=== PATIENT | male | born 1955 | race African-American/Black ===

== ENCOUNTER 2019-11-19 17:02 | Inpatient (IN) | payer OTHER ==
[~2019-11-19] VITALS: Ht 177.8 cm; Wt 62.0 kg
[2019-11-19 17:09] VITALS: BP 146/75
--- NOTE | 2019-11-19 17:21 | Emergency Room Report ---
History of Present Illness General Chief Complaint: Abnormal Labs Source: Patient Present Illness HPI 64-year-old male with history of diabetes and recent CVA approximately 1 month ago requiring ICU admission at an outside hospital according to paramedics, here with hypoglycemia. Patient's family who lives at home with him has been checking his blood glucose over the past 2 days and says that it is persistently in the 30s despite forcing the patient to eat and given the patient p.o. glucose supplementation. When paramedics arrived the patient had a blood glucose of 37. He received a bolus of D10 and repeat blood glucose here in the emergency department is 137 on arrival. Patient is alert and oriented to name and place only at his baseline, which she is at right now. He denies any pain. No fevers, chills, chest pain, palpitations, shortness of breath, back pain, abdominal pain, nausea, vomiting, diarrhea, dysuria. Paramedics did not have a medication list for the patient. When they asked the family at the home whether the patient takes any medication such as insulin, family members said that they were unaware. 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 Nursing Documentation-[facility] Past Medical History: No History, Except For Hx Hypertension: Yes Hx Diabetes: Yes Hx Neurological Problems: Yes - Stroke september/2019 Review of Systems All Other Systems: negative except mentioned in HPI Physical Exam Vital Signs Date Time Temp Pulse Resp B/P (MAP) Pulse Ox O2 Delivery O2 Flow Rate FiO2 11/19/19 16:59 98.1 74 18 126/61 (82) 99 Room Air Sp02 EP Interpretation: reviewed, normal General Appearance: no apparent distress, alert, non-toxic Head: normocephalic, atraumatic Eyes: bilateral eye normal inspection, bilateral eye PERRL ENT: hearing grossly normal, normal pharynx, no angioedema, normal voice Neck: full range of motion, supple/symm/no masses Respiratory: chest non-tender, lungs clear, normal breath sounds, speaking full sentences Cardiovascular #1: regular rate, rhythm, no edema Cardiovascular #2: 2+ carotid (R), 2+ carotid (L), 2+ radial (R), 2+ radial (L) , 2+ dorsalis pedis (R), 2+ dorsalis pedis (L) Gastrointestinal: normal bowel sounds, non tender, soft, non-distended, no guarding, no rebound Rectal: deferred Genitourinary: normal inspection, no CVA tenderness Musculoskeletal: back normal, normal range of motion, calf tenderness, gait/ station normal, non-tender Neurologic: alert, motor strength/tone normal, sensory intact, responsive, speech normal, other - Oriented to name and place. Did not know year. At baseline Psychiatric: judgement/insight normal, memory normal, mood/affect normal, no suicidal/homicidal ideation Lymphatic: no adenopathy Medical Decision Making Diagnostic Impression: Primary Impression: NSTEMI (non-ST elevated myocardial infarction) Additional Impressions: UTI (urinary tract infection) COVID-19 Pneumonia Hypoglycemia ER Course Total critical care time: Approximately 45 minutes Due to a high probability of clinically significant, life threatening deterioration, the patient required the highest level of preparedness to intervene emergently and I personally spent this critical care time directly and personally managing the patient. This critical care time included obtaining a history, examining the patient, pulse oximetry, ordering and reviewing studies , ordering treatments, evaluating response to treatment and updating management plan as needed, frequent reassessment and discussion with other providers as well as arranging for ultimate disposition. This critical to care time was performed to assess and manage the high probability of life-threatening deterioration that could result in multiorgan failure. This critical care time is separate from the separately billable procedures and treating other patients. EKG: Normal sinus rhythm. Rate 60 bpm. No ectopy. T wave inversions V4 through V6. No large ST elevation. Leftward axis Chest x-ray: Bilateral patchy ill-defined peripheral appearing opacities may be inflammatory infectious, clinically correlate 64-year-old male here with hyperglycemia. Patient had a blood glucose of 37 per the paramedics when they arrived at the patient's home. He received a bolus of D10 water en route to the emergency department and his repeat glucose was 137. However after about an hour his repeat glucose again was 87. He was placed on a D10 W infusion at 50 cc/h. Patient is EKG revealed concerning T wave inversions in V4 through V6. He also had an increased troponin of 0.2. However there were no EKG changes that would indicate a STEMI or STEMI equivalent. Lactate elevated 2.4. Patient was given 1 L of IV normal saline and repeat lactate is currently pending. Urinalysis showed evidence of infection. Chest x-ray also showed patchy ill-defined opacities diffusely. Concern for possible COVID-19 versus healthcare acquired pneumonia given that the patient was recently in a another hospital about 1 month ago. He was given vancomycin and cefepime for coverage for healthcare acquired pneumonia as well as urinary tract infections. Despite being on D10W the patient's repeat glucose dropped to 47. He received a bolus of D50 and the D10W infusion was increased to 100 cc/h. Repeat glucose approximately 30 minutes later was 130. Patient remained hemodynamically stable throughout this entire course. Admitted to telemetry. Last Vital Signs Date Time Temp Pulse Resp B/P (MAP) Pulse Ox O2 Delivery O2 Flow Rate FiO2 11/19/19 17:09 98.1 75 20 146/75 100 Room Air Jad Westfall M.D. Nov 19, 2019 17:21
[2019-11-19 17:23] LABS: BASOPHILS % (AUTO) 0.7 % (0.0-2.0); HEMATOCRIT 29.2 % (42.0-52.0); HEMOGLOBIN 9.7 G/DL (14.2-18.0); MEAN CORPUSCULAR VOLUME 87 FL (80-99); MONOCYTES % (AUTO) 5.3 % (1.0-10.0); PLATELET COUNT 221 K/UL (150-450); RED BLOOD COUNT 3.34 M/UL (4.70-6.10); WHITE BLOOD COUNT 10.3 K/UL (4.8-10.8)
[2019-11-19 17:33] LABS: ANION GAP 10 mmol/L (5-15); BLOOD UREA NITROGEN 14 mg/dL (7-18); CALCIUM 8.6 MG/DL (8.5-10.1); CARBON DIOXIDE 25 MMOL/L (21-32); CHLORIDE 96 MMOL/L (98-107); CREATININE 1.1 MG/DL (0.55-1.30); POTASSIUM 4.2 MMOL/L (3.5-5.1); SODIUM 131 MMOL/L (136-145)
[2019-11-19 17:45] LABS: APPEARANCE,URINE SLIGHTLY CLOUDY; BILIRUBIN, URINE NEGATIVE (NEGATIVE); GLUCOSE, URINE (UA) 2+ (NEGATIVE); KETONES,URINE NEGATIVE (NEGATIVE); LEUKOCYTE ESTERASE ,URINE 1+ (NEGATIVE); NITRITE,URINE NEGATIVE (NEGATIVE); PH,URINE 6 (4.5-8.0); PROTEIN,URINE 2+ (NEGATIVE); UROBILINOGEN,URINE 8 MG/DL (0.0-1.0)
[2019-11-19] MEDS ORDERED: Aspirin Baby 81mg ORAL ONE (17:45)
[2019-11-19 17:46] LABS: COLOR,URINE YELLOW
--- NOTE | 2019-11-19 17:46 | Diagnostic Imaging Report ---
History: COUGH Exam: XR CXR 1 VIEW Comparison: None available FINDINGS: Bilateral patchy ill-defined peripheral appearing opacities. No evidence of pleural effusion. The cardiac and mediastinal contours appear within limits. Several BBs. Visualized osseous structures appear within limits. IMPRESSION: Bilateral patchy ill-defined peripheral appearing opacities may be inflammatory or infectious, clinically correlate.
[2019-11-19 17:47] LABS: ALANINE AMINOTRANSFERASE 35 U/L (12-78); ALBUMIN/GLOBULIN RATIO 0.8 (1.0-2.7); ALKALINE PHOSPHATASE 56 U/L (46-116); ASPARTATE AMINO TRANSFERASE 52 U/L (15-37); BILIRUBIN,TOTAL 1.2 MG/DL (0.2-1.0); CKMB 1.7 NG/ML (0.0-3.6); CREATINE KINASE 434 U/L (26-308); INR 1.2 (0.9-1.1)
[2019-11-19 17:50] LABS: BILIRUBIN,DIRECT 0.3 MG/DL (0.0-0.3)
[2019-11-19] MEDS ORDERED: CLOPIDOGREL75 MG ORAL (17:58)
[2019-11-19] MEDS ORDERED: METOPROLOL TART25 MG ORAL (17:58)
[2019-11-19] MEDS ORDERED: GLIPIZIDE5 MG ORAL (17:58)
[2019-11-19] MEDS ORDERED: ELIQUIS5 MG PO (17:58)
[2019-11-19] MEDS ORDERED: Dextrose 10% 1,000 ML IV ONE (18:05)
[2019-11-19] MEDS ORDERED: Dextrose 10% 1,000 ML IV SCH (18:15)
[2019-11-19] MEDS ORDERED: Vancomycin 1 GM in NS 275 ML IVPB ONE (18:30)
[2019-11-19] MEDS ORDERED: Cefepime HCl 1 GM in D5W 55 ML IVPB ONE (18:30)
[2019-11-19 19:00] VITALS: BP 135/70
[2019-11-19] MEDS ORDERED: ATORVASTATIN CA40 MG ORAL (19:31)
[2019-11-19] MEDS ORDERED: LISINOPRIL2.5 MG ORAL (19:31)
[2019-11-19] MEDS ORDERED: dexAMETHasone 10mg/ml Inj IV ONE (22:30)
[2019-11-20] VITALS: BP 144/75
[2019-11-20] MEDS: Dextrose 10% 1,000 ML IV SCH ×2 (03:26→13:00)
[2019-11-20 04:00] VITALS: BP 147/67
[2019-11-20 05:13] LABS: HEMATOCRIT 29.2 % (42.0-52.0); HEMOGLOBIN 9.8 G/DL (14.2-18.0); MEAN CORPUSCULAR VOLUME 86 FL (80-99); PLATELET COUNT 242 K/UL (150-450); WHITE BLOOD COUNT 9.1 K/UL (4.8-10.8)
[2019-11-20 05:34] LABS: ALANINE AMINOTRANSFERASE 41 U/L (12-78); ALBUMIN 2.9 G/DL (3.4-5.0); ALBUMIN/GLOBULIN RATIO 0.7 (1.0-2.7); ALKALINE PHOSPHATASE 52 U/L (46-116); ANION GAP 11 mmol/L (5-15); ASPARTATE AMINO TRANSFERASE 52 U/L (15-37); BILIRUBIN,TOTAL 1.2 MG/DL (0.2-1.0); BLOOD UREA NITROGEN 12 mg/dL (7-18); CARBON DIOXIDE 21 MMOL/L (21-32); CHLORIDE 101 MMOL/L (98-107); CREATININE 0.9 MG/DL (0.55-1.30); POTASSIUM 4.7 MMOL/L (3.5-5.1); SODIUM 133 MMOL/L (136-145)
[2019-11-20 05:43] LABS: BILIRUBIN,DIRECT 0.3 MG/DL (0.0-0.3)
[2019-11-20 08:00] VITALS: BP 153/70
[2019-11-20] MEDS: dexAMETHasone 10mg/ml Inj IV SCH (09:00)
[2019-11-20] MEDS: cefTRIAXone 1 GM in D5W 55 ML IVPB SCH (09:00)
[2019-11-20] MEDS: Aspirin Baby 81mg ORAL SCH (09:00)
[2019-11-20 10:11] LABS: FERRITIN 1249 NG/ML (8-388)
[2019-11-20 10:58] LABS: % IRON SATURATION 20 % (15-50); IRON 24 ug/dL (50-175); TOTAL IRON BINDING CAPACITY 120 ug/dL (250-450)
--- NOTE | 2019-11-20 11:00 | Consultation ---
DATE OF CONSULTATION: 11/20/2019 ENDOCRINOLOGY CONSULTATION CONSULTING PHYSICIAN: Vinicius Gunter MD. REFERRING PHYSICIAN: Sharon Dobson MD. REASON FOR CONSULTATION: Diabetes management. HISTORY OF PRESENT ILLNESS: The patient is a 64-year-old male with past medical history of diabetes, on glipizide monotherapy, as well as a recent CVA approximately about a month ago requiring ICU admission at outside hospital, presented with severe hypoglycemia. In the past few days, his glucose has been running in the 30s. Despite the patient being forced to eat by paramedics, had a glucose of 37 and was given dextrose rescue dose and brought to the emergency department. After admission, the patient continued to drop his glucose, therefore started on D10 drip and Endocrinology was consulted. His COVID test came back positive, they informed me last night. I added dexamethasone 6 mg daily in order to help with both COVID and hypoglycemia, and glucose orders were provided. PAST MEDICAL HISTORY: 1. Diabetes. 2. CVA. 3. Hypertension. PAST SURGICAL HISTORY: None documented. REVIEW OF SYSTEMS: As per HPI. FAMILY HISTORY: Noncontributory. SOCIAL HISTORY: Lives at home. No smoking, alcohol, or drug use. MEDICATIONS: Reviewed and reconciled. LABORATORY VALUES: WBC 9, hemoglobin 9, hematocrit 29, platelets of 242. Sodium 133, potassium 4.7, chloride 101, bicarb 21, BUN 12, creatinine 0.9. Glucose of 213. Lactic acid was 2.4 on presentation. PHYSICAL EXAMINATION: VITAL SIGNS: Blood pressure is 147/67, heart rate 63, respiratory rate 18, temperature 98.5. Full exam was deferred due to COVID infection. DIAGNOSES: 1. Hypoglycemia secondary to both glipizide and COVID. 2. COVID infection. 3. Diabetes, out of control. PLAN: 1. Continue D10 drip. 2. Continue dexamethasone. 3. Continue glucose monitoring. 4. No need for insulin for now. 5. I will follow the patient closely during hospital stay. Thank you Dr. Dobson for the courtesy of this consultation. Vinicius Gunter M.D. DR: VIVEK/CHUCK JOB#: [id number] CC:
[2019-11-20 11:47] VITALS: BP 127/66
--- NOTE | 2019-11-20 13:30 | Consultation ---
DATE OF CONSULTATION: 11/20/2019 PULMONARY CONSULTATION CONSULTING PHYSICIAN: Jordan Groves MD. HISTORY OF PRESENT ILLNESS: This is a 64-year-old male with a history of diabetes mellitus and previous CVA, who came to the hospital with hypoglycemia. The patient noted that the patient has been hypoglycemic for the last several days. The patient was hypoglycemic and received D10. At this time, the patient is unable to answer any further questions with respect to his presentation. Overnight, the patient has been tested and found to be positive for COVID-19. I have reviewed his imaging studies and note that an x-ray chest was obtained, which has shown bilateral patchy infiltrates suspicious for COVID-19 pneumonia. The patient is currently not hypoxic and is 96% on room air. PAST MEDICAL HISTORY: Notable for hypertension, diabetes mellitus, and recent CVA. PAST SURGICAL HISTORY: None reported. SOCIAL HISTORY: Lives at home with family. REVIEW OF SYSTEMS: Denies any headaches, hematemesis, melena, or hematochezia. PHYSICAL EXAMINATION: GENERAL: Reveals a 64-year-old male. HEENT: Unremarkable. LUNGS: Clear breath sounds. ABDOMEN: Soft. EXTREMITIES: There is no edema. NEUROLOGIC: Nonfocal. LABORATORY DATA: Lab testing discussed above notable for hemoglobin 9.8, otherwise normal CBC. BMP notable for glucose 161 today. Yesterday was glucose of 58. He has elevated ferritin as well as AST. Coags show D-dimer of 0.7. Urinalysis shows few pus cells. X-ray discussed above. IMPRESSION: 1. COVID19 pneumonia. 2. Hypoglycemia. 3. Diabetes mellitus. 4. Hypertension. 5. CVA. DISCUSSION: Admit to the hospital. Hold off on remdesivir given lack of hypoxemia. We will initiate Lovenox therapy and Decadron. We will follow carefully. Thank you for consultation. Jordan Groves M.D. DR: DON JOB#: [id number] CC:
--- NOTE | 2019-11-20 14:12 | Consultation ---
Consult Note Consult Note Asked to evaluate the patient at the request of Dr. Morse for abnormal electrolytes Patient had no previous admissions here at [facility] 64-year-old male with history of diabetes and recent CVA approximately 1 month ago requiring ICU admission at an outside hospital according to paramedics, here with hypoglycemia. Patient's family who lives at home with him has been checking his blood glucose over the past 2 days and says that it is persistently in the 30s despite forcing the patient to eat and given the patient p.o. glucose supplementation. When paramedics arrived the patient had a blood glucose of 37. He received a bolus of D10 and repeat blood glucose here in the emergency department is 137 on arrival. Patient is alert and oriented to name and place only at his baseline, which she is at right now. He denies any pain. No fevers, chills, chest pain, palpitations, shortness of breath, back pain, abdominal pain, nausea, vomiting, diarrhea, dysuria. Paramedics did not have a medication list for the patient. When they asked the family at the home whether the patient takes any medication such as insulin, family members said that they were unaware. No Known Allergies (Unverified , 11/19/19) COVID-19 Screening Contact w/high risk pt: No Experienced COVID-19 symptoms?: No COVID-19 Testing performed LEGAL COMPLIANCE OFFICER: No Past Medical History: No History, Except For Hx Hypertension: Yes Hx Diabetes: Yes Hx Neurological Problems: Yes - Stroke september/2019 PHYSICAL EXAMINATION: VITAL SIGNS: Temperature 97.9, pulse 55, blood pressure 129/66. GENERAL APPEARANCE: Seems to be in no acute distress. HEAD AND NECK: [place] conjunctivae. HEART: Normal rate. LUNGS: Clear. He is in room air oxygen. ABDOMEN: Soft, nontender. EXTREMITIES: Has no edema. LABORATORY AND DIAGNOSTIC DATA: WBC 9.1, hemoglobin 9.8, hematocrit 29.2, platelets is 242. Sodium 131, potassium 4.2, chloride 96, bicarbonate 25, BUN 14, creatinine 1.1, glucose 115. The latest glucose was 166 yesterday. Albumin is 2.9. Chest x-ray showed bilateral patchy peripheral appearing opacity, may be inflammatory or infectious. UA showed rbc's of 5 to 10, wbc's of 2 to 4. . Assessment/Plan Impression: Hyponatremia likely depletional Diabetes mellitus, with periodic hypoglycemia Non-STEMI COVID-19, pneumonia UTI Hypertension Previous CVA Suggestions: Keep the blood pressure and blood sugar in check Slow hydrate Monitor electrolytes Per consultants Chest x-ray: IMPRESSION: Bilateral patchy ill-defined peripheral appearing opacities may be inflammatory or infectious, clinically correlate. Ilya López MD Nov 20, 2019 14:12
--- NOTE | 2019-11-20 14:48 | Cardiac Electrophysiology PN ---
Subjective Subjective [id number] Objective Last 24 Hour Vital Signs Date Time Temp Pulse Resp B/P (MAP) Pulse Ox O2 Delivery O2 Flow Rate FiO2 11/20/19 11:47 98.2 86 20 127/66 (86) 94 11/20/19 09:00 Room Air 11/20/19 08:00 99.3 90 20 153/70 (97) 96 11/20/19 04:00 98.5 78 18 147/67 (93) 97 11/20/19 04:00 63 11/20/19 00:00 98.0 88 20 144/75 (98) 97 11/20/19 00:00 72 11/19/19 21:00 Room Air 11/19/19 20:31 Room Air 11/19/19 20:00 74 11/19/19 20:00 98.5 82 18 138/8 100 Room Air 11/19/19 19:00 98.5 86 16 135/70 99 Room Air 11/19/19 17:09 98.1 75 20 146/75 100 Room Air 11/19/19 16:59 98.1 74 18 126/61 (82) 99 Room Air Intake and Output 11/19/19 11/20/19 19:00 07:00 Intake Total 1055 ml Balance 1055 ml IV Total 1055 ml # Voids 1 Laboratory Tests Test 11/19/19 17:00 11/19/19 17:59 11/19/19 19:10 11/20/19 01:30 White Blood Count 10.3 K/UL (4.8-10.8) Red Blood Count 3.34 M/UL (4.70-6.10) L Hemoglobin 9.7 G/DL (14.2-18.0) L Hematocrit 29.2 % (42.0-52.0) L Mean Corpuscular Volume 87 FL (80-99) Mean Corpuscular Hemoglobin 29.0 PG (27.0-31.0) Mean Corpuscular Hemoglobin Concent 33.2 G/DL (32.0-36.0) Red Cell Distribution Width 12.0 % (11.6-14.8) Platelet Count 221 K/UL (150-450) Mean Platelet Volume 8.0 FL (6.5-10.1) Neutrophils (%) (Auto) 84.0 % (45.0-75.0) H Lymphocytes (%) (Auto) 10.0 % (20.0-45.0) L Monocytes (%) (Auto) 5.3 % (1.0-10.0) Eosinophils (%) (Auto) 0.0 % (0.0-3.0) Basophils (%) (Auto) 0.7 % (0.0-2.0) Prothrombin Time 12.6 SEC (9.30-11.50) H Prothromb Time International Ratio 1.2 (0.9-1.1) H Activated Partial Thromboplast Time 35 SEC (23-33) H D-Dimer 0.72 mg/L FEU (0.00-0.49) H Urine Color Yellow Urine Appearance Slightly cloudy Urine pH 6 (4.5-8.0) Urine Specific [place] 1.010 (1.005-1.035) Urine Protein 2+ (NEGATIVE) H Urine Glucose (UA) 2+ (NEGATIVE) H Urine Ketones Negative (NEGATIVE) Urine Blood 2+ (NEGATIVE) H Urine Nitrite Negative (NEGATIVE) Urine Bilirubin Negative (NEGATIVE) Urine Urobilinogen 8 MG/DL (0.0-1.0) H Urine Leukocyte Esterase 1+ (NEGATIVE) H Urine RBC 5-10 /HPF (0 - 0) H Urine WBC 2-4 /HPF (0 - 0) Urine Squamous Epithelial Cells Occasional /LPF Urine Amorphous Sediment Few /LPF (NONE) H Urine Bacteria Few /HPF (NONE) Sodium Level 131 MMOL/L (136-145) L Potassium Level 4.2 MMOL/L (3.5-5.1) Chloride Level 96 MMOL/L (98-107) L Carbon Dioxide Level 25 MMOL/L (21-32) Anion Gap 10 mmol/L (5-15) Blood Urea Nitrogen 14 mg/dL (7-18) Creatinine 1.1 MG/DL (0.55-1.30) Estimat Glomerular Filtration Rate > 60 mL/min (>60) Glucose Level 115 MG/DL (74-106) H Lactic Acid Level 2.40 mmol/L (0.4-2.0) H 1.30 mmol/L (0.66-2.22) Calcium Level 8.6 MG/DL (8.5-10.1) Total Bilirubin 1.2 MG/DL (0.2-1.0) H Direct Bilirubin 0.3 MG/DL (0.0-0.3) Aspartate Amino Transf (AST/SGOT) 52 U/L (15-37) H Alanine Aminotransferase (ALT/SGPT) 35 U/L (12-78) Alkaline Phosphatase 56 U/L (46-116) Total Creatine Kinase 434 U/L (26-308) H Creatine Kinase MB 1.7 NG/ML (0.0-3.6) Creatine Kinase MB Relative Index 0.3 Troponin I 0.203 ng/mL (0.000-0.056) Total Protein 7.0 G/DL (6.4-8.2) Albumin 3.0 G/DL (3.4-5.0) L Globulin 4.0 g/dL Albumin/Globulin Ratio 0.8 (1.0-2.7) L POC Whole Blood Glucose Pending 58 MG/DL (74-106) L Test 11/20/19 03:50 11/20/19 04:00 11/20/19 06:10 11/20/19 09:10 POC Whole Blood Glucose 170 MG/DL (74-106) H 213 MG/DL (74-106) H White Blood Count 9.1 K/UL (4.8-10.8) Red Blood Count 3.40 M/UL (4.70-6.10) L Hemoglobin 9.8 G/DL (14.2-18.0) L Hematocrit 29.2 % (42.0-52.0) L Mean Corpuscular Volume 86 FL (80-99) Mean Corpuscular Hemoglobin 28.8 PG (27.0-31.0) Mean Corpuscular Hemoglobin Concent 33.6 G/DL (32.0-36.0) Red Cell Distribution Width 12.0 % (11.6-14.8) Platelet Count 242 K/UL (150-450) Mean Platelet Volume 7.2 FL (6.5-10.1) Neutrophils (%) (Auto) % (45.0-75.0) Lymphocytes (%) (Auto) % (20.0-45.0) Monocytes (%) (Auto) % (1.0-10.0) Eosinophils (%) (Auto) % (0.0-3.0) Basophils (%) (Auto) % (0.0-2.0) Differential Total Cells Counted 100 Neutrophils % (Manual) 82 % (45-75) H Lymphocytes % (Manual) 12 % (20-45) L Monocytes % (Manual) 6 % (1-10) Eosinophils % (Manual) 0 % (0-3) Basophils % (Manual) 0 % (0-2) Band Neutrophils 0 % (0-8) Platelet Estimate Adequate Platelet Morphology Normal Hypochromasia 1+ Sodium Level 133 MMOL/L (136-145) L Potassium Level 4.7 MMOL/L (3.5-5.1) Chloride Level 101 MMOL/L (98-107) Carbon Dioxide Level 21 MMOL/L (21-32) Anion Gap 11 mmol/L (5-15) Blood Urea Nitrogen 12 mg/dL (7-18) Creatinine 0.9 MG/DL (0.55-1.30) Estimat Glomerular Filtration Rate > 60 mL/min (>60) Glucose Level 161 MG/DL (74-106) H Calcium Level 9.0 MG/DL (8.5-10.1) Total Bilirubin 1.2 MG/DL (0.2-1.0) H Direct Bilirubin 0.3 MG/DL (0.0-0.3) Aspartate Amino Transf (AST/SGOT) 52 U/L (15-37) H Alanine Aminotransferase (ALT/SGPT) 41 U/L (12-78) Alkaline Phosphatase 52 U/L (46-116) Total Protein 7.1 G/DL (6.4-8.2) Albumin 2.9 G/DL (3.4-5.0) L Globulin 4.2 g/dL Albumin/Globulin Ratio 0.7 (1.0-2.7) L Iron Level 24 ug/dL (50-175) L Total Iron Binding Capacity 120 ug/dL (250-450) L Percent Iron Saturation 20 % (15-50) Unsaturated Iron Binding 96 ug/dL (112-346) L Ferritin 1249 NG/ML (8-388) H Vitamin B12 Level 1201 PG/ML (193-986) H Folate 13.0 NG/ML (8.6-58.9) Microbiology Date/Time Source Procedure Growth Status 11/19/19 18:10 Nasopharynx SARS-CoV-2 RdRp Gene Assay - Final Complete Sean Garcia MD Nov 20, 2019 14:48
[2019-11-20 16:00] VITALS: BP 125/62
--- NOTE | 2019-11-20 16:00 | Consultation ---
DATE OF CONSULTATION: 11/20/2019 CARDIOLOGY CONSULTATION REFERRING PHYSICIAN: Sharon Dobson M.D. REASON FOR CONSULTATION: Elevated troponin and abnormal electrocardiogram. HISTORY OF PRESENT ILLNESS: The patient is a 64-year-old gentleman with history of diabetes, prior CVA, came to the hospital with hypoglycemia. The patient received D10. The patient also was tested positive for COVID-19 and now he is in isolation. His initial troponin was elevated and the EKG also showed inferolateral ischemia. The patient denies any chest pain and is currently not hypoxic at 96% on room air. REVIEW OF SYSTEMS: Negative other than what was mentioned in history of present illness. PAST MEDICAL HISTORY: 1. Hypertension. 2. Diabetes. 3. History of recent CVA. FAMILY HISTORY: Noncontributory. SOCIAL HISTORY: He lives at home with family. PHYSICAL EXAMINATION: VITAL SIGNS: Blood pressure of 127/60, pulse 86, respirations 20, temperature 98.2. HEAD AND NECK: No JVD. LUNGS: Coarse rhonchi. CARDIOVASCULAR: Regular S1 and S2 with no gallop or murmur. ABDOMEN: Soft. EXTREMITIES: No pitting edema. LABORATORY DATA: Labs show troponin of 0.203. Sodium 133, potassium 4.7, BUN 12, creatinine 0.9, 161. His white count is 9.1, hemoglobin 9.8, hematocrit 29, and platelet count 242. D-dimer is 0.72. ASSESSMENT AND PLAN: 1. Troponin elevation, inferolateral ischemia. We will repeat the cardiac enzymes. He does not currently have chest pain. Currently, he is already on aspirin. Add beta-thompson to his medical regimen as well as statin. We will get an echocardiogram and completely rule out [place] protocol. 2. Positive COVID. 3. Uncontrolled diabetes. 4. Hypertension, put him on low-dose beta-thompson, especially in view of positive troponin. 5. History of CVA. Thank you very much for allowing me to participate in the care of this patient. Please do not hesitate to contact me for any questions regarding my evaluation. Sean Garcia M.D. DR: SWEETIE JOB#: [id number] CC:
[2019-11-20] MEDS ORDERED: Dextrose 10% 1,000 ML IV SCH ×2 (18:15)
[2019-11-20 20:00] VITALS: BP 160/80
[2019-11-20] MEDS: Metoprolol Tartrate 12.5mg TAB ORAL SCH (21:52)
[2019-11-20] MEDS: NovoLOG Insulin Flexpen SUBQ SCH (23:10)
--- NOTE | 2019-11-20 23:30 | History and Physical Report ---
DATE OF ADMISSION: 11/19/2019 HISTORY OF PRESENT ILLNESS: The patient initially came for hypoglycemia, was put on D10 drip. Chest x-ray showed patchy opacities, COVID positive, also is admitted for UTI and elevated troponin. EKG showed T-wave inversions in V4 to V6, but no signs of STEMI. The patient also had a recent hospitalization about a month ago after a stroke. The patient got antibiotics in the ER and was admitted. I cannot get reliable history from the patient. The patient is confused. PAST MEDICAL HISTORY: Hyperlipidemia, recent CVA, NIDDM, hypertension, hypoglycemia. PAST SURGICAL HISTORY: Unable to obtain. No known allergies. ALLERGIES: The patient has no known allergies. MEDICATIONS: Lisinopril, glipizide, metoprolol, Plavix, Eliquis, and Lipitor. FAMILY HISTORY: Noncontributory. SOCIAL HISTORY: No history of alcohol or illicit drugs. REVIEW OF SYSTEMS: HEENT: Headaches, does have some cough. CARDIOVASCULAR: Denies chest pain. GASTROINTESTINAL: Denies nausea, vomiting, or diarrhea. EXTREMITIES: Denies pain. CENTRAL NERVOUS SYSTEM: Denies change in speech pattern. Feels weak. Poor historian. PHYSICAL EXAMINATION: VITAL SIGNS: Temperature 98.2, pulse 86, blood pressure 127/66. HEENT: PERRLA. CHEST: Bilateral rhonchi. CARDIOVASCULAR: Regular rate and rhythm. No murmurs or extra sounds. GASTROINTESTINAL: Soft, nontender, nondistended. No organomegaly. EXTREMITIES: No edema. CENTRAL NERVOUS SYSTEM: Has generalized weakness. LABORATORY DATA: WBC of 10.3, hemoglobin 9.7, platelets of 221, and glucose of 644. ASSESSMENT AND PLAN: 1. Hypoglycemia. The patient is taking D10. 2. Pneumonia, COVID positive. 3. UTI. 4. Elevated troponin. 5. Recent stroke. I have consulted Dr. Gooden, Dr. Calloway, Dr. Gunter, Dr. Garica, Dr. Jordan Groves, and Dr. Josh Contreras to help with the above-mentioned abnormal symptoms and findings and abnormal labs and abdominal imaging. Antibiotics per Dr. Josh Contreras. We will monitor the patient closely. The patient is on D10. Sharon Dobson M.D. DR: SHILPI JOB#: [id number] CC:
[2019-11-21] VITALS: BP 139/61
[2019-11-21] MEDS: NovoLOG Insulin Flexpen SUBQ SCH ×4 (07:32→20:40)
[2019-11-21 07:52] VITALS: BP 129/66
[2019-11-21 08:00] VITALS: BP 129/66
[2019-11-21] MEDS: dexAMETHasone 10mg/ml Inj IV SCH (09:01)
[2019-11-21] MEDS: Aspirin Baby 81mg ORAL SCH (09:01)
[2019-11-21] MEDS: cefTRIAXone 1 GM in D5W 55 ML IVPB SCH (09:01)
[2019-11-21] MEDS: Metoprolol Tartrate 12.5mg TAB ORAL SCH ×2 (09:01→20:37)
[2019-11-21] MEDS: Enoxaparin 40mg Inj SUBQ SCH (09:03)
--- NOTE | 2019-11-21 10:33 | Pulmonology Progress Note ---
Subjective Interval Events: None new Constitutional: Reports: no symptoms HEENT: Repors: no symptoms Respiratory: Reports: dry cough Cardiovascular: Reports: no symptoms Gastrointestinal/Abdominal: Reports: no symptoms Allergies: Coded Allergies: No Known Allergies (Unverified , 11/19/19) Objective Last 24 Hour Vital Signs Date Time Temp Pulse Resp B/P (MAP) Pulse Ox O2 Delivery O2 Flow Rate FiO2 11/21/19 09:01 97 129/66 11/21/19 08:00 97.9 58 18 129/66 (87) 97 97 11/21/19 07:52 97.9 58 18 129/66 (87) 97 97 11/21/19 00:00 98.1 97 20 139/61 (87) 98 11/21/19 00:00 55 11/20/19 21:52 64 160/84 11/20/19 21:00 Room Air 11/20/19 20:00 70 11/20/19 20:00 99.1 70 24 160/80 (106) 96 11/20/19 16:00 72 11/20/19 16:00 98.5 82 18 125/62 (83) 95 11/20/19 12:00 57 11/20/19 11:47 98.2 86 20 127/66 (86) 94 Intake and Output 11/20/19 11/21/19 19:00 07:00 Intake Total 920 ml 480 ml Output Total 2400 ml Balance -1480 ml 480 ml Intake Oral 920 ml 480 ml Output Urine Total 2400 ml # Voids 3 General Appearance: no acute distress HEENT: normocephalic Respiratory: chest wall non-tender, lungs clear Cardiovascular: normal peripheral pulses, normal rate Abdomen: normal bowel sounds Microbiology Date/Time Source Procedure Growth Status 11/19/19 17:10 Blood Blood Culture - Preliminary NO GROWTH AFTER 24 HOURS Resulted 11/19/19 17:00 Blood Blood Culture - Preliminary NO GROWTH AFTER 24 HOURS Resulted 11/19/19 18:10 Nasopharynx SARS-CoV-2 RdRp Gene Assay - Final Complete Laboratory Tests 11/20/19 17:48: POC Whole Blood Glucose [Pending] 11/20/19 18:30: Glucose Level 644#*H, Hemoglobin A1c 5.8 Current Medications Medications (Trade) Dose Ordered Sig/Jose Route PRN Reason Start Time Stop Time Status Last Admin Dose Admin Acetaminophen (Tylenol) 650 mg Q6H PRN ORAL mod pain/temp 101 or greater 11/19/19 21:45 12/19/19 21:44 Aspirin (ASA) 81 mg DAILY ORAL 11/20/19 09:00 01/04/20 08:59 11/21/19 09:01 Atorvastatin Calcium (Lipitor) 10 mg DAILY ORAL 11/21/19 09:00 02/19/20 08:59 11/21/19 09:01 Ceftriaxone Sodium 1 gm/ Dextrose 55 ml @ 110 mls/hr Q24H IVPB 11/20/19 09:00 11/27/19 08:59 11/21/19 09:01 Dexamethasone Sodium Phosphate (Decadron 10mg/ ml Inj) 6 mg DAILY IV 11/20/19 09:00 11/29/19 09:01 11/21/19 09:01 Dextrose (Dextrose 50%) 25 ml Q30M PRN IV Hypoglycemia 11/20/19 20:00 02/18/20 19:59 Dextrose (Dextrose 50%) 50 ml NEEDED PRN IV for blood sugar <70 11/19/19 22:15 02/17/20 22:14 Dextrose (Dextrose 50%) 50 ml Q30M PRN IV Hypoglycemia 11/20/19 20:00 02/18/20 19:59 Enoxaparin Sodium (Lovenox) 40 mg DAILY SUBQ 11/21/19 09:00 02/19/20 08:59 11/21/19 09:03 Insulin Aspart (NovoLOG) BEFORE MEALS AND HS SUBQ 11/20/19 21:00 02/18/20 20:59 11/21/19 07:32 Metoprolol Tartrate (Lopressor) 12.5 mg EVERY 12 HOURS ORAL 11/20/19 21:00 02/18/20 20:59 11/21/19 09:01 Assessment/Plan Assessment/Plan IMPRESSION: 1. COVID19 pneumonia. 2. Hypoglycemia. 3. Diabetes mellitus. 4. Hypertension. 5. CVA. DISCUSSION: Admit to the hospital. Hold off on remdesivir given lack of hypoxemia. On Lovenox and Decadron. I will follow carefully. Cesar Hancock Omar Syed MD Nov 21, 2019 10:33
[2019-11-21 12:00] VITALS: BP 129/66
--- NOTE | 2019-11-21 14:57 | General Progress Note ---
Assessment/Plan Problem List: (1) Diabetes mellitus ICD Codes: E11.9 - Type 2 diabetes mellitus without complications SNOMED: 43016325 (2) NSTEMI (non-ST elevated myocardial infarction) ICD Codes: I21.4 - Non-ST elevation (NSTEMI) myocardial infarction SNOMED: 04467676 (3) Hypoglycemia ICD Codes: E16.2 - Hypoglycemia, unspecified SNOMED: 030062556 (4) COVID-19 ICD Codes: U07.1 - COVID-19 SNOMED: 789747687 (5) Pneumonia ICD Codes: J18.9 - Pneumonia, unspecified organism SNOMED: 076370451 (6) UTI (urinary tract infection) ICD Codes: N39.0 - Urinary tract infection, site not specified SNOMED: 16459667 Assessment/Plan: add Januvia 100 mg daily add Starlix 60 mg ac tid continue Novolog sliding scale ac / hs hypoglycemia protocol in order Subjective ROS Limited/Unobtainable: Yes Allergies: Coded Allergies: No Known Allergies (Unverified , 11/19/19) Subjective events noted interval notes reviewed glucose values are elevated no longer on D10 or Dexamethasone Item Value Date Time Bedside Blood Glucose 397 mg/dl H 11/21/19 0732 Bedside Blood Glucose 401 mg/dl H 11/21/19 0630 Bedside Blood Glucose 412 mg/dl H 11/20/19 2310 Bedside Blood Glucose 412 mg/dl H 11/20/19 2100 Bedside Blood Glucose 450 mg/dl H 11/20/19 1630 Bedside Blood Glucose 276 mg/dl H 11/20/19 1130 Objective Last 24 Hour Vital Signs Date Time Temp Pulse Resp B/P (MAP) Pulse Ox O2 Delivery O2 Flow Rate FiO2 11/21/19 12:00 55 11/21/19 12:00 98.1 70 18 129/66 (87) 96 70 11/21/19 09:01 97 129/66 11/21/19 08:00 55 11/21/19 08:00 97.9 58 18 129/66 (87) 97 97 11/21/19 07:52 97.9 58 18 129/66 (87) 97 97 11/21/19 00:00 98.1 97 20 139/61 (87) 98 11/21/19 00:00 55 11/20/19 21:52 64 160/84 11/20/19 21:00 Room Air 11/20/19 20:00 70 11/20/19 20:00 99.1 70 24 160/80 (106) 96 11/20/19 16:00 72 11/20/19 16:00 98.5 82 18 125/62 (83) 95 Intake and Output 11/20/19 11/21/19 19:00 07:00 Intake Total 920 ml 480 ml Output Total 2400 ml Balance -1480 ml 480 ml Intake Oral 920 ml 480 ml Output Urine Total 2400 ml # Voids 3 Laboratory Tests 11/20/19 17:48: POC Whole Blood Glucose [Pending] 11/20/19 18:30: Glucose Level 644#*H, Hemoglobin A1c 5.8 Height (Feet): 5 Height (Inches): 10.00 Weight (Pounds): 161 Objective Current Medications Medications (Trade) Dose Ordered Sig/Jose Route PRN Reason Start Time Stop Time Status Last Admin Dose Admin Acetaminophen (Tylenol) 650 mg Q6H PRN ORAL mod pain/temp 101 or greater 11/19/19 21:45 12/19/19 21:44 Aspirin (ASA) 81 mg DAILY ORAL 11/20/19 09:00 01/04/20 08:59 11/21/19 09:01 Atorvastatin Calcium (Lipitor) 10 mg DAILY ORAL 11/21/19 09:00 02/19/20 08:59 11/21/19 09:01 Ceftriaxone Sodium 1 gm/ Dextrose 55 ml @ 110 mls/hr Q24H IVPB 11/20/19 09:00 11/27/19 08:59 11/21/19 09:01 Dextrose (Dextrose 50%) 25 ml Q30M PRN IV Hypoglycemia 11/20/19 20:00 02/18/20 19:59 Dextrose (Dextrose 50%) 50 ml NEEDED PRN IV for blood sugar <70 11/19/19 22:15 02/17/20 22:14 Dextrose (Dextrose 50%) 50 ml Q30M PRN IV Hypoglycemia 11/20/19 20:00 02/18/20 19:59 Enoxaparin Sodium (Lovenox) 40 mg DAILY SUBQ 11/21/19 09:00 02/19/20 08:59 11/21/19 09:03 Insulin Aspart (NovoLOG) BEFORE MEALS AND HS SUBQ 11/20/19 21:00 02/18/20 20:59 11/21/19 07:32 Metoprolol Tartrate (Lopressor) 12.5 mg EVERY 12 HOURS ORAL 11/20/19 21:00 02/18/20 20:59 11/21/19 09:01 Vinicius Gunter MD Nov 21, 2019 14:57
--- NOTE | 2019-11-21 15:32 | Nephrology Progress Note ---
Assessment/Plan Problem List: (1) Electrolyte imbalance Assessment: Hyponatremia (2) Diabetes mellitus (3) Hypoglycemia (4) COVID-19 (5) Pneumonia (6) UTI (urinary tract infection) (7) NSTEMI (non-ST elevated myocardial infarction) Assessment Hyponatremia likely depletional Diabetes mellitus, with periodic hypoglycemia Non-STEMI COVID-19, pneumonia UTI Hypertension Previous CVA Plan Patient been refusing blood draw and taking medication today according to the RN Keep the blood pressure and blood sugar in check as possible Slow hydrate Monitor electrolytes Per consultants Subjective ROS Limited/Unobtainable: No Constitutional: Reports: malaise, weakness Objective Objective Last 24 Hour Vital Signs Date Time Temp Pulse Resp B/P (MAP) Pulse Ox O2 Delivery O2 Flow Rate FiO2 11/21/19 12:00 55 11/21/19 12:00 98.1 70 18 129/66 (87) 96 70 11/21/19 09:01 97 129/66 11/21/19 09:00 Room Air 11/21/19 08:00 55 11/21/19 08:00 97.9 58 18 129/66 (87) 97 97 11/21/19 07:52 97.9 58 18 129/66 (87) 97 97 11/21/19 00:00 98.1 97 20 139/61 (87) 98 11/21/19 00:00 55 11/20/19 21:52 64 160/84 11/20/19 21:00 Room Air 11/20/19 20:00 70 11/20/19 20:00 99.1 70 24 160/80 (106) 96 11/20/19 16:00 72 11/20/19 16:00 98.5 82 18 125/62 (83) 95 Intake and Output 11/20/19 11/21/19 19:00 07:00 Intake Total 920 ml 480 ml Output Total 2400 ml Balance -1480 ml 480 ml Intake Oral 920 ml 480 ml Output Urine Total 2400 ml # Voids 3 Refused blood draw today laboratory Tests 11/20/19 17:48: POC Whole Blood Glucose [Pending] 11/20/19 18:30: Glucose Level 644#*H, Hemoglobin A1c 5.8 Height (Feet): 5 Height (Inches): 10.00 Weight (Pounds): 161 General Appearance: no apparent distress, lethargic Objective Unchanged Ilya López MD Nov 21, 2019 15:32
[2019-11-21 16:00] VITALS: BP 133/81
[2019-11-21] MEDS: Nateglinide 60mg tab ORAL SCH (17:39)
[2019-11-21 20:00] VITALS: BP 134/63
--- NOTE | 2019-11-21 20:30 | Consultation ---
DATE OF CONSULTATION: 11/21/2019 INFECTIOUS DISEASE CONSULTATION CONSULTING PHYSICIAN: Josh Contreras MD. PRIMARY ATTENDING: Sharon Dobson MD. REASON FOR CONSULT: COVID-19 disease. HISTORY OF PRESENT ILLNESS: This is a 64-year-old male admitted on 11/19/2019 because of hypoglycemia for 3 days. At the time of transfer to the hospital, blood sugar was 37. He was found to have COVID-19. PAST MEDICAL HISTORY: Significant for diabetes mellitus. Has history of CVA about 1 month ago. He states that he did not have any weakness. Has hypertension. ALLERGIES: No known drug allergies. MEDICATIONS: Enoxaparin, atorvastatin, metoprolol, insulin, dexamethasone, ceftriaxone, aspirin. SOCIAL HISTORY: Originally from [place] in [facility]. Lives in [facility] from many years. Single. No history of alcohol, drug abuse, or smoking. REVIEW OF SYSTEMS: Denies fever or chills. Denies coughing or shortness of breath. No nausea. No vomiting. According to nurse has decreased appetite. No dysuria. PHYSICAL EXAMINATION: VITAL SIGNS: Temperature 97.9, pulse 55, blood pressure 129/66. GENERAL APPEARANCE: Seems to be in no acute distress. HEAD AND NECK: [place] conjunctivae. HEART: Normal rate. LUNGS: Clear. He is in room air oxygen. ABDOMEN: Soft, nontender. EXTREMITIES: Has no edema. LABORATORY AND DIAGNOSTIC DATA: WBC 9.1, hemoglobin 9.8, hematocrit 29.2, platelets is 242. Sodium 131, potassium 4.2, chloride 96, bicarbonate 25, BUN 14, creatinine 1.1, glucose 115. The latest glucose was 166 yesterday. Albumin is 2.9. Chest x-ray showed bilateral patchy peripheral appearing opacity, may be inflammatory or infectious. UA showed rbc's of 5 to 10, wbc's of 2 to 4. IMPRESSION: COVID-19 disease, seems to be mild. Patient is on room air oxygen. Has diabetes mellitus with hypoglycemia, hypertension, anemia, elevation in troponin. RECOMMENDATION: Discontinue dexamethasone. If the culture remains negative, we will stop ceftriaxone. At the end of my exam, I thank Dr. Dobson for involving me in the care of this patient. Josh Contreras M.D. DR: VANESSA JOB#: [id number] CC: FIFI
--- NOTE | 2019-11-21 21:13 | General Progress Note ---
Assessment/Plan Problem List: (1) COVID-19 ICD Codes: U07.1 - COVID-19 SNOMED: 124377169 (2) Pneumonia ICD Codes: J18.9 - Pneumonia, unspecified organism SNOMED: 496464187 (3) UTI (urinary tract infection) ICD Codes: N39.0 - Urinary tract infection, site not specified SNOMED: 73476316 (4) Diabetes mellitus ICD Codes: E11.9 - Type 2 diabetes mellitus without complications SNOMED: 36206680 (5) Hypoglycemia ICD Codes: E16.2 - Hypoglycemia, unspecified SNOMED: 812294470 (6) NSTEMI (non-ST elevated myocardial infarction) ICD Codes: I21.4 - Non-ST elevation (NSTEMI) myocardial infarction SNOMED: 79041667 (7) Electrolyte imbalance ICD Codes: E87.8 - Other disorders of electrolyte and fluid balance, not elsewhere classified SNOMED: 338344793 Status: progressing Assessment/Plan: afebrile hypoglycemia lyte abnormality covid pna uti abx per id Subjective ROS Limited/Unobtainable: Yes Allergies: Coded Allergies: No Known Allergies (Unverified , 11/19/19) Objective Last 24 Hour Vital Signs Date Time Temp Pulse Resp B/P (MAP) Pulse Ox O2 Delivery O2 Flow Rate FiO2 11/21/19 20:37 65 139/67 11/21/19 20:00 98.3 61 18 134/63 (86) 99 11/21/19 16:00 60 11/21/19 16:00 98.8 59 17 133/81 (98) 97 59 11/21/19 12:00 55 11/21/19 12:00 98.1 70 18 129/66 (87) 96 70 11/21/19 09:01 97 129/66 11/21/19 09:00 Room Air 11/21/19 08:00 55 11/21/19 08:00 97.9 58 18 129/66 (87) 97 97 11/21/19 07:52 97.9 58 18 129/66 (87) 97 97 11/21/19 00:00 98.1 97 20 139/61 (87) 98 11/21/19 00:00 55 11/20/19 21:52 64 160/84 Intake and Output 11/20/19 11/21/19 19:00 07:00 Intake Total 920 ml 480 ml Output Total 2400 ml Balance -1480 ml 480 ml Intake Oral 920 ml 480 ml Output Urine Total 2400 ml # Voids 3 Laboratory Tests 11/21/19 20:30: POC Whole Blood Glucose 433H Height (Feet): 5 Height (Inches): 10.00 Weight (Pounds): 161 Sharon Dobson MD Nov 21, 2019 21:13
[2019-11-22] VITALS: BP 149/61
[2019-11-22] MEDS ORDERED: Haloperidol 5mg/ml Inj IM PRN (00:45)
--- NOTE | 2019-11-22 03:30 | Consultation ---
DATE OF CONSULTATION: 11/19/2019 HISTORY OF PRESENT ILLNESS: The patient is a 64-year-old male with a history of multiple medical conditions who has been admitted to [facility] for medical stabilization. The patient has a history of CVA, hypertension, hyperlipidemia, and hyperglycemia for medical stabilization. During the evaluation, the patient is somewhat is a poor historian and is somewhat confused, not able to be engaged and answer the question. Has psychomotor retardation. He in addition is COVID positive. No agitation noted. The patient is uncooperative and is refusing all the labs. The patient is unable to understand, process, and communicate rationally. The patient may not refuse labs as he lacks capacity to make decisions. PAST PSYCHIATRIC HISTORY: Significant for CVA and cognitive impairment. PAST MEDICAL HISTORY: Hypertension, hyperglycemia, hyperlipidemia. ALLERGIES: No known drug allergies. SUBSTANCE ABUSE HISTORY: No known history of illicit drug use or alcohol noted. The patient is a poor historian. MENTAL STATUS EXAMINATION: The patient is awake, disoriented. Mood is anxious. Affect is blunted. Thought process is concrete. Thought content, no suicidal or homicidal ideation. Cognition is impaired. Insight and judgment impaired. ASSESSMENT: AXIS I: Vascular dementia. Rule out acute encephalopathy. AXIS II: Deferred. AXIS III: COVID-19. AXIS IV: Low. AXIS V: 20. PLAN: 1. The patient lacks capacity to refuse procedures and labs. 2. Suggestive the Haldol prior to the lab draw and place the patient on bilateral restraints. Reno Gooden M.D. DR: ESAU JOB#: [id number] CC:
[2019-11-22 04:00] VITALS: BP 144/63
[2019-11-22] MEDS: Nateglinide 60mg tab ORAL SCH ×3 (06:41→16:35)
[2019-11-22] MEDS: NovoLOG Insulin Flexpen SUBQ SCH ×4 (06:43→21:44)
--- NOTE | 2019-11-22 06:50 | General Progress Note ---
Assessment/Plan Problem List: (1) Diabetes mellitus ICD Codes: E11.9 - Type 2 diabetes mellitus without complications SNOMED: 27320952 (2) NSTEMI (non-ST elevated myocardial infarction) ICD Codes: I21.4 - Non-ST elevation (NSTEMI) myocardial infarction SNOMED: 44603331 (3) Hypoglycemia ICD Codes: E16.2 - Hypoglycemia, unspecified SNOMED: 056011898 (4) COVID-19 ICD Codes: U07.1 - COVID-19 SNOMED: 461731347 (5) Pneumonia ICD Codes: J18.9 - Pneumonia, unspecified organism SNOMED: 971237321 (6) UTI (urinary tract infection) ICD Codes: N39.0 - Urinary tract infection, site not specified SNOMED: 76248230 Status: progressing Assessment/Plan: continue Januvia 100 mg daily continue Starlix 60 mg ac tid continue Novolog sliding scale ac / hs hypoglycemia protocol in order Subjective ROS Limited/Unobtainable: Yes Allergies: Coded Allergies: No Known Allergies (Unverified , 11/19/19) Subjective events noted interval notes reviewed fasting glucose improved Item Value Date Time Bedside Blood Glucose 397 mg/dl H 11/21/19 0732 Bedside Blood Glucose 401 mg/dl H 11/21/19 0630 Bedside Blood Glucose 412 mg/dl H 11/20/19 2310 Bedside Blood Glucose 412 mg/dl H 11/20/19 2100 Bedside Blood Glucose 450 mg/dl H 11/20/19 1630 Bedside Blood Glucose 276 mg/dl H 11/20/19 1130 Bedside Blood Glucose 174 mg/dl H 11/22/19 0643 Bedside Blood Glucose 433 mg/dl H 11/21/19 2040 Objective Last 24 Hour Vital Signs Date Time Temp Pulse Resp B/P (MAP) Pulse Ox O2 Delivery O2 Flow Rate FiO2 11/22/19 04:00 97.9 53 18 144/63 (90) 97 11/22/19 03:37 61 11/22/19 00:00 59 11/22/19 00:00 98.7 66 18 149/61 (90) 97 11/21/19 21:00 Room Air 11/21/19 20:37 65 139/67 11/21/19 20:00 98.3 61 18 134/63 (86) 99 11/21/19 19:14 61 11/21/19 16:00 60 11/21/19 16:00 98.8 59 17 133/81 (98) 97 59 11/21/19 12:00 55 11/21/19 12:00 98.1 70 18 129/66 (87) 96 70 11/21/19 09:01 97 129/66 11/21/19 09:00 Room Air 11/21/19 08:00 55 11/21/19 08:00 97.9 58 18 129/66 (87) 97 97 11/21/19 07:52 97.9 58 18 129/66 (87) 97 97 Intake and Output 11/21/19 11/22/19 19:00 07:00 Intake Total 140 ml 480 ml Output Total 1200 ml Balance -1060 ml 480 ml Intake Oral 140 ml 480 ml Output Urine Total 1200 ml # Voids 3 2 Laboratory Tests 11/21/19 20:30: POC Whole Blood Glucose 433H 11/22/19 06:03: POC Whole Blood Glucose 174H Height (Feet): 5 Height (Inches): 10.00 Weight (Pounds): 134 Objective Current Medications Medications (Trade) Dose Ordered Sig/Jose Route PRN Reason Start Time Stop Time Status Last Admin Dose Admin Acetaminophen (Tylenol) 650 mg Q6H PRN ORAL mod pain/temp 101 or greater 11/19/19 21:45 12/19/19 21:44 Aspirin (ASA) 81 mg DAILY ORAL 11/20/19 09:00 01/04/20 08:59 11/21/19 09:01 Atorvastatin Calcium (Lipitor) 10 mg DAILY ORAL 11/21/19 09:00 02/19/20 08:59 11/21/19 09:01 Ceftriaxone Sodium 1 gm/ Dextrose 55 ml @ 110 mls/hr Q24H IVPB 11/20/19 09:00 11/27/19 08:59 11/21/19 09:01 Dextrose (Dextrose 50%) 25 ml Q30M PRN IV Hypoglycemia 11/20/19 20:00 02/18/20 19:59 Dextrose (Dextrose 50%) 50 ml NEEDED PRN IV for blood sugar <70 11/19/19 22:15 02/17/20 22:14 Dextrose (Dextrose 50%) 50 ml Q30M PRN IV Hypoglycemia 11/20/19 20:00 02/18/20 19:59 Enoxaparin Sodium (Lovenox) 40 mg DAILY SUBQ 11/21/19 09:00 02/19/20 08:59 11/21/19 09:03 Haloperidol Lactate (Haldol) 5 mg Q6H PRN IM Agitation 11/22/19 00:45 01/06/20 00:44 Insulin Aspart (NovoLOG) BEFORE MEALS AND HS SUBQ 11/20/19 21:00 02/18/20 20:59 11/22/19 06:43 Metoprolol Tartrate (Lopressor) 12.5 mg EVERY 12 HOURS ORAL 11/20/19 21:00 02/18/20 20:59 11/21/19 20:37 Nateglinide (Starlix) 60 mg TIAC ORAL 11/21/19 16:30 12/21/19 16:29 11/22/19 06:41 Olanzapine (ZyPREXA) 2.5 mg BEDTIME ORAL 11/22/19 21:00 01/06/20 20:59 Sitagliptin Phosphate (Januvia) 100 mg ACBREAKFAST ORAL 11/21/19 15:00 12/21/19 14:59 11/22/19 06:41 Vinicius Gunter MD Nov 22, 2019 06:50
[2019-11-22 08:00] VITALS: BP 135/65
[2019-11-22] MEDS: cefTRIAXone 1 GM in D5W 55 ML IVPB SCH (09:13)
[2019-11-22] MEDS: Metoprolol Tartrate 12.5mg TAB ORAL SCH ×2 (09:13→21:41)
[2019-11-22] MEDS: Aspirin Baby 81mg ORAL SCH (09:14)
[2019-11-22] MEDS: Enoxaparin 40mg Inj SUBQ SCH (09:16)
--- NOTE | 2019-11-22 10:53 | Nephrology Progress Note ---
Assessment/Plan Problem List: (1) Electrolyte imbalance Assessment: Hyponatremia (2) Diabetes mellitus (3) Hypoglycemia (4) COVID-19 (5) Pneumonia (6) UTI (urinary tract infection) (7) NSTEMI (non-ST elevated myocardial infarction) Assessment Hyponatremia likely depletional Diabetes mellitus, with periodic hypoglycemia Non-STEMI COVID-19, pneumonia UTI Hypertension Previous CVA Plan November 21: No labs available. Physical examination and vital signs are all okay. Psychiatric evaluation noted and appreciated. Patient lacks capacity to make decisions and refuse labs. Patient been refusing blood draw and taking medication today according to the RN Keep the blood pressure and blood sugar in check as possible Slow hydrate Monitor electrolytes Per consultants Subjective ROS Limited/Unobtainable: No Objective Objective Last 24 Hour Vital Signs Date Time Temp Pulse Resp B/P (MAP) Pulse Ox O2 Delivery O2 Flow Rate FiO2 11/22/19 09:13 73 135/65 11/22/19 08:00 97.5 73 20 135/65 (88) 97 11/22/19 07:47 54 11/22/19 04:00 97.9 53 18 144/63 (90) 97 11/22/19 03:37 61 11/22/19 00:00 59 11/22/19 00:00 98.7 66 18 149/61 (90) 97 11/21/19 21:00 Room Air 11/21/19 20:37 65 139/67 11/21/19 20:00 98.3 61 18 134/63 (86) 99 11/21/19 19:14 61 11/21/19 16:00 60 11/21/19 16:00 98.8 59 17 133/81 (98) 97 59 11/21/19 12:00 55 11/21/19 12:00 98.1 70 18 129/66 (87) 96 70 Intake and Output 11/21/19 11/22/19 19:00 07:00 Intake Total 140 ml 480 ml Output Total 1200 ml Balance -1060 ml 480 ml Intake Oral 140 ml 480 ml Output Urine Total 1200 ml # Voids 3 2 No blood work done as the patient refuses Laboratory Tests 11/21/19 20:30: POC Whole Blood Glucose 433H 11/22/19 06:03: POC Whole Blood Glucose 174H Height (Feet): 5 Height (Inches): 10.00 Weight (Pounds): 134 General Appearance: no apparent distress Objective Unchanged Ilya López MD Nov 22, 2019 10:53
--- NOTE | 2019-11-22 10:57 | Pulmonology Progress Note ---
Subjective ROS Limited/Unobtainable: No Interval Events: None new Constitutional: Reports: other - Wants to go home; Denies: fever HEENT: Repors: no symptoms Respiratory: Reports: dry cough Cardiovascular: Reports: no symptoms Gastrointestinal/Abdominal: Reports: no symptoms Psychiatric: Reports: other - noncomplaint with medications Allergies: Coded Allergies: No Known Allergies (Unverified , 11/19/19) Objective Last 24 Hour Vital Signs Date Time Temp Pulse Resp B/P (MAP) Pulse Ox O2 Delivery O2 Flow Rate FiO2 11/22/19 09:13 73 135/65 11/22/19 09:00 Room Air 11/22/19 08:00 97.5 73 20 135/65 (88) 97 11/22/19 07:47 54 11/22/19 04:00 97.9 53 18 144/63 (90) 97 11/22/19 03:37 61 11/22/19 00:00 59 11/22/19 00:00 98.7 66 18 149/61 (90) 97 11/21/19 21:00 Room Air 11/21/19 20:37 65 139/67 11/21/19 20:00 98.3 61 18 134/63 (86) 99 11/21/19 19:14 61 11/21/19 16:00 60 11/21/19 16:00 98.8 59 17 133/81 (98) 97 59 11/21/19 12:00 55 11/21/19 12:00 98.1 70 18 129/66 (87) 96 70 Intake and Output 11/21/19 11/22/19 19:00 07:00 Intake Total 140 ml 480 ml Output Total 1200 ml Balance -1060 ml 480 ml Intake Oral 140 ml 480 ml Output Urine Total 1200 ml # Voids 3 2 General Appearance: no acute distress HEENT: normocephalic Respiratory: chest wall non-tender, lungs clear Cardiovascular: normal peripheral pulses, normal rate Abdomen: normal bowel sounds Microbiology Date/Time Source Procedure Growth Status 11/19/19 17:10 Blood Blood Culture - Preliminary NO GROWTH AFTER 48 HOURS Resulted 11/19/19 17:00 Blood Blood Culture - Preliminary NO GROWTH AFTER 48 HOURS Resulted 11/19/19 18:10 Nasopharynx SARS-CoV-2 RdRp Gene Assay - Final Complete Laboratory Tests 11/21/19 20:30: POC Whole Blood Glucose 433H 11/22/19 06:03: POC Whole Blood Glucose 174H Current Medications Medications (Trade) Dose Ordered Sig/Jose Route PRN Reason Start Time Stop Time Status Last Admin Dose Admin Acetaminophen (Tylenol) 650 mg Q6H PRN ORAL mod pain/temp 101 or greater 11/19/19 21:45 12/19/19 21:44 Aspirin (ASA) 81 mg DAILY ORAL 11/20/19 09:00 01/04/20 08:59 11/22/19 09:14 Atorvastatin Calcium (Lipitor) 10 mg DAILY ORAL 11/21/19 09:00 02/19/20 08:59 11/22/19 09:14 Ceftriaxone Sodium 1 gm/ Dextrose 55 ml @ 110 mls/hr Q24H IVPB 11/20/19 09:00 11/27/19 08:59 11/22/19 09:13 Dextrose (Dextrose 50%) 25 ml Q30M PRN IV Hypoglycemia 11/20/19 20:00 02/18/20 19:59 Dextrose (Dextrose 50%) 50 ml NEEDED PRN IV for blood sugar <70 11/19/19 22:15 02/17/20 22:14 Dextrose (Dextrose 50%) 50 ml Q30M PRN IV Hypoglycemia 11/20/19 20:00 02/18/20 19:59 Enoxaparin Sodium (Lovenox) 40 mg DAILY SUBQ 11/21/19 09:00 02/19/20 08:59 11/22/19 09:16 Haloperidol Lactate (Haldol) 5 mg Q6H PRN IM Agitation 11/22/19 00:45 01/06/20 00:44 Insulin Aspart (NovoLOG) BEFORE MEALS AND HS SUBQ 11/20/19 21:00 02/18/20 20:59 11/22/19 06:43 Metoprolol Tartrate (Lopressor) 12.5 mg EVERY 12 HOURS ORAL 11/20/19 21:00 02/18/20 20:59 11/22/19 09:13 Nateglinide (Starlix) 60 mg TIAC ORAL 11/21/19 16:30 12/21/19 16:29 11/22/19 06:41 Olanzapine (ZyPREXA) 2.5 mg BEDTIME ORAL 11/22/19 21:00 01/06/20 20:59 Sitagliptin Phosphate (Januvia) 100 mg ACBREAKFAST ORAL 11/21/19 15:00 12/21/19 14:59 11/22/19 06:41 Assessment/Plan Assessment/Plan IMPRESSION: 1. COVID19 pneumonia. 2. Hypoglycemia. 3. Diabetes mellitus. 4. Hypertension. 5. CVA. DISCUSSION: Admit to the hospital. Hold off on remdesivir given lack of hypoxemia. On Lovenox and Decadron. I will follow carefully. Jordan Groves M.D. Jordan Groves MD Nov 22, 2019 10:57
[2019-11-22 12:00] VITALS: BP 140/74
--- NOTE | 2019-11-22 14:39 | Cardiac Electrophysiology PN ---
Assessment/Plan Assessment/Plan 1. Troponin elevation, inferolateral ischemia. Refused repeat the cardiac enzymes. He does not currently have chest pain. Currently, he is already on aspirin, Metoprolol 12.5 bid and Lipitor 10 daily. Echocardiogram EF 65% 2. Positive COVID. 3. Uncontrolled diabetes. 4. Hypertension, On Lopressor 5. History of CVA. Subjective Subjective In isolation. Jhonny down to 50s Objective Last 24 Hour Vital Signs Date Time Temp Pulse Resp B/P (MAP) Pulse Ox O2 Delivery O2 Flow Rate FiO2 11/22/19 12:00 97.3 75 20 140/74 (96) 97 11/22/19 11:45 84 11/22/19 09:13 73 135/65 11/22/19 09:00 Room Air 11/22/19 08:00 97.5 73 20 135/65 (88) 97 11/22/19 07:47 54 11/22/19 04:00 97.9 53 18 144/63 (90) 97 11/22/19 03:37 61 11/22/19 00:00 59 11/22/19 00:00 98.7 66 18 149/61 (90) 97 11/21/19 21:00 Room Air 11/21/19 20:37 65 139/67 11/21/19 20:00 98.3 61 18 134/63 (86) 99 11/21/19 19:14 61 11/21/19 16:00 60 11/21/19 16:00 98.8 59 17 133/81 (98) 97 59 Intake and Output 11/21/19 11/22/19 19:00 07:00 Intake Total 140 ml 480 ml Output Total 1200 ml Balance -1060 ml 480 ml Intake Oral 140 ml 480 ml Output Urine Total 1200 ml # Voids 3 2 Laboratory Tests Test 11/21/19 20:30 11/22/19 06:03 11/22/19 11:37 POC Whole Blood Glucose 433 MG/DL (74-106) H 174 MG/DL (74-106) H 323 MG/DL (74-106) H Microbiology Date/Time Source Procedure Growth Status 11/19/19 17:10 Blood Blood Culture - Preliminary NO GROWTH AFTER 48 HOURS Resulted 11/19/19 17:00 Blood Blood Culture - Preliminary NO GROWTH AFTER 48 HOURS Resulted 11/19/19 18:10 Nasopharynx SARS-CoV-2 RdRp Gene Assay - Final Complete Objective HEAD AND NECK: No JVD. LUNGS: Coarse rhonchi. CARDIOVASCULAR: Regular S1 and S2 with no gallop or murmur. ABDOMEN: Soft. EXTREMITIES: No pitting edema. Sean Garcia MD Nov 22, 2019 14:38
[2019-11-22 16:00] VITALS: BP 137/64
--- NOTE | 2019-11-22 18:00 | General Progress Note ---
Assessment/Plan Problem List: (1) COVID-19 ICD Codes: U07.1 - COVID-19 SNOMED: 836860414 (2) Pneumonia ICD Codes: J18.9 - Pneumonia, unspecified organism SNOMED: 371456406 (3) UTI (urinary tract infection) ICD Codes: N39.0 - Urinary tract infection, site not specified SNOMED: 66300920 (4) Diabetes mellitus ICD Codes: E11.9 - Type 2 diabetes mellitus without complications SNOMED: 38288985 (5) Hypoglycemia ICD Codes: E16.2 - Hypoglycemia, unspecified SNOMED: 516257402 (6) NSTEMI (non-ST elevated myocardial infarction) ICD Codes: I21.4 - Non-ST elevation (NSTEMI) myocardial infarction SNOMED: 37871189 (7) Electrolyte imbalance ICD Codes: E87.8 - Other disorders of electrolyte and fluid balance, not elsewhere classified SNOMED: 045586979 Status: progressing Assessment/Plan: not lhypoxia supportive rx covid pna uti improving Subjective ROS Limited/Unobtainable: Yes Allergies: Coded Allergies: No Known Allergies (Unverified , 11/19/19) Objective Last 24 Hour Vital Signs Date Time Temp Pulse Resp B/P (MAP) Pulse Ox O2 Delivery O2 Flow Rate FiO2 11/22/19 16:00 97.4 68 20 137/64 (88) 97 11/22/19 15:13 63 11/22/19 12:00 97.3 75 20 140/74 (96) 97 11/22/19 11:45 84 11/22/19 09:13 73 135/65 11/22/19 09:00 Room Air 11/22/19 08:00 97.5 73 20 135/65 (88) 97 11/22/19 07:47 54 11/22/19 04:00 97.9 53 18 144/63 (90) 97 11/22/19 03:37 61 11/22/19 00:00 59 11/22/19 00:00 98.7 66 18 149/61 (90) 97 11/21/19 21:00 Room Air 11/21/19 20:37 65 139/67 11/21/19 20:00 98.3 61 18 134/63 (86) 99 11/21/19 19:14 61 Intake and Output 11/21/19 11/22/19 19:00 07:00 Intake Total 140 ml 480 ml Output Total 1200 ml Balance -1060 ml 480 ml Intake Oral 140 ml 480 ml Output Urine Total 1200 ml # Voids 3 2 Laboratory Tests 11/21/19 20:30: POC Whole Blood Glucose 433H 11/22/19 06:03: POC Whole Blood Glucose 174H 11/22/19 11:37: POC Whole Blood Glucose 323H 11/22/19 16:46: POC Whole Blood Glucose 325H Height (Feet): 5 Height (Inches): 10.00 Weight (Pounds): 134 Sharon Dobson MD Nov 22, 2019 18:00
[2019-11-22 20:00] VITALS: BP 142/67
[2019-11-22] MEDS: OLANZapine 2.5mg tab ORAL SCH (21:40)
--- NOTE | 2019-11-22 23:09 | Psych Consult Progress Note ---
Psychiatry Progress Note Psychiatry Progress Note Subjective noncompliant with cogn impairment Medications Current Medications Medications (Trade) Dose Ordered Sig/Jose Route PRN Reason Start Time Stop Time Status Last Admin Dose Admin Acetaminophen (Tylenol) 650 mg Q6H PRN ORAL mod pain/temp 101 or greater 11/19/19 21:45 12/19/19 21:44 Aspirin (ASA) 81 mg DAILY ORAL 11/20/19 09:00 01/04/20 08:59 11/22/19 09:14 Atorvastatin Calcium (Lipitor) 10 mg DAILY ORAL 11/21/19 09:00 02/19/20 08:59 11/22/19 09:14 Ceftriaxone Sodium 1 gm/ Dextrose 55 ml @ 110 mls/hr Q24H IVPB 11/20/19 09:00 11/27/19 08:59 11/21/19 09:01 Dextrose (Dextrose 50%) 25 ml Q30M PRN IV Hypoglycemia 11/20/19 20:00 02/18/20 19:59 Dextrose (Dextrose 50%) 50 ml NEEDED PRN IV for blood sugar <70 11/19/19 22:15 02/17/20 22:14 Dextrose (Dextrose 50%) 50 ml Q30M PRN IV Hypoglycemia 11/20/19 20:00 02/18/20 19:59 Enoxaparin Sodium (Lovenox) 40 mg DAILY SUBQ 11/21/19 09:00 02/19/20 08:59 11/22/19 09:16 Haloperidol Lactate (Haldol) 5 mg Q6H PRN IM Agitation 11/22/19 00:45 01/06/20 00:44 Insulin Aspart (NovoLOG) BEFORE MEALS AND HS SUBQ 11/20/19 21:00 02/18/20 20:59 11/22/19 21:44 Metoprolol Tartrate (Lopressor) 12.5 mg EVERY 12 HOURS ORAL 11/20/19 21:00 02/18/20 20:59 11/22/19 21:41 Nateglinide (Starlix) 60 mg TIAC ORAL 11/21/19 16:30 12/21/19 16:29 11/22/19 16:35 Olanzapine (ZyPREXA) 2.5 mg BEDTIME ORAL 11/22/19 21:00 01/06/20 20:59 8/24/20 21:40 Sitagliptin Phosphate (Januvia) 100 mg ACBREAKFAST ORAL 11/21/19 15:00 12/21/19 14:59 11/22/19 06:41 Neurological/Psychiatric: Reports: anxiety, depressed, emotional problems Allergies: Coded Allergies: No Known Allergies (Unverified , 11/19/19) Objective Data Height (Feet): 5 Height (Inches): 10.00 Weight (Pounds): 134 General Appearance: no apparent distress Additional Comments: awake, disoriented. Mood is anxious. Affect is blunted. Thought process is concrete. Thought content, no suicidal or homicidal ideation. Cognition is impaired. Insight and judgment impaired. Assessment/Plan Status: progressing Assessment/Plan: ASSESSMENT: AXIS I: Vascular dementia. Rule out acute encephalopathy. AXIS II: Deferred. AXIS III: COVID-19. AXIS IV: Low. AXIS V: 20. PLAN: 1. The patient lacks capacity to refuse procedures and labs. 2. Suggestive the Haldol prior to the lab draw and place the patient on bilateral restraints. Reno Gooedn MD Nov 22, 2019 23:09
[2019-11-23] VITALS: BP 144/70
[2019-11-23 04:26] LABS: BASOPHILS % (AUTO) 0.5 % (0.0-2.0); EOSINOPHILS % (AUTO) 0.2 % (0.0-3.0); HEMATOCRIT 28.1 % (42.0-52.0); HEMOGLOBIN 9.3 G/DL (14.2-18.0); LYMPHOCYTES % (AUTO) 18.6 % (20.0-45.0); MEAN CORPUSCULAR VOLUME 86 FL (80-99); MONOCYTES % (AUTO) 10.1 % (1.0-10.0); NEUTROPHILS % (AUTO) 70.7 % (45.0-75.0); PLATELET COUNT 310 K/UL (150-450); RED BLOOD COUNT 3.26 M/UL (4.70-6.10); RED CELL DISTRIBUTION WIDTH 11.8 % (11.6-14.8); WHITE BLOOD COUNT 8.9 K/UL (4.8-10.8)
[2019-11-23 04:48] LABS: ALANINE AMINOTRANSFERASE 29 U/L (12-78); ALBUMIN 2.7 G/DL (3.4-5.0); ALBUMIN/GLOBULIN RATIO 0.7 (1.0-2.7); ALKALINE PHOSPHATASE 55 U/L (46-116); ANION GAP 7 mmol/L (5-15); ASPARTATE AMINO TRANSFERASE 19 U/L (15-37); BILIRUBIN,TOTAL 0.6 MG/DL (0.2-1.0); BLOOD UREA NITROGEN 21 mg/dL (7-18); CALCIUM 8.9 MG/DL (8.5-10.1); CARBON DIOXIDE 27 MMOL/L (21-32); CHLORIDE 102 MMOL/L (98-107); CREATININE 1.1 MG/DL (0.55-1.30); PHOSPHORUS 2.5 MG/DL (2.5-4.9); POTASSIUM 4.1 MMOL/L (3.5-5.1); SODIUM 136 MMOL/L (136-145)
[2019-11-23] MEDS: Nateglinide 60mg tab ORAL SCH ×3 (06:05→16:30)
[2019-11-23] MEDS: NovoLOG Insulin Flexpen SUBQ SCH ×4 (06:12→20:43)
--- NOTE | 2019-11-23 06:52 | General Progress Note ---
Assessment/Plan Problem List: (1) Diabetes mellitus ICD Codes: E11.9 - Type 2 diabetes mellitus without complications SNOMED: 79987855 (2) NSTEMI (non-ST elevated myocardial infarction) ICD Codes: I21.4 - Non-ST elevation (NSTEMI) myocardial infarction SNOMED: 10401834 (3) Hypoglycemia ICD Codes: E16.2 - Hypoglycemia, unspecified SNOMED: 212976671 (4) COVID-19 ICD Codes: U07.1 - COVID-19 SNOMED: 980758078 (5) Pneumonia ICD Codes: J18.9 - Pneumonia, unspecified organism SNOMED: 158529829 (6) UTI (urinary tract infection) ICD Codes: N39.0 - Urinary tract infection, site not specified SNOMED: 47902092 Status: progressing Assessment/Plan: continue Januvia 100 mg daily continue Starlix 60 mg ac tid continue Novolog sliding scale ac / hs hypoglycemia protocol in order Subjective ROS Limited/Unobtainable: Yes Allergies: Coded Allergies: No Known Allergies (Unverified , 11/19/19) Subjective events noted interval notes reviewed fasting glucose improving Item Value Date Time Bedside Blood Glucose 180 mg/dl H 11/22/19 2144 Bedside Blood Glucose 325 mg/dl H 11/22/19 1651 Bedside Blood Glucose 323 mg/dl H 11/22/19 1157 Bedside Blood Glucose 174 mg/dl H 11/22/19 0643 Objective Last 24 Hour Vital Signs Date Time Temp Pulse Resp B/P (MAP) Pulse Ox O2 Delivery O2 Flow Rate FiO2 11/23/19 04:00 58 11/23/19 00:00 59 11/23/19 00:00 97.0 78 20 144/70 (94) 100 11/22/19 21:41 71 142/67 11/22/19 21:00 Room Air 11/22/19 20:00 73 11/22/19 20:00 98.1 71 20 142/67 (92) 96 11/22/19 16:00 97.4 68 20 137/64 (88) 97 11/22/19 15:13 63 11/22/19 12:00 97.3 75 20 140/74 (96) 97 11/22/19 11:45 84 11/22/19 09:13 73 135/65 11/22/19 09:00 Room Air 11/22/19 08:00 97.5 73 20 135/65 (88) 97 11/22/19 07:47 54 Intake and Output 11/22/19 11/23/19 19:00 07:00 # Voids 1 Laboratory Tests 11/22/19 11:37: POC Whole Blood Glucose 323H 11/22/19 16:46: POC Whole Blood Glucose 325H 11/23/19 02:55: White Blood Count 8.9, Red Blood Count 3.26L, Hemoglobin 9.3L, Hematocrit 28.1L , Mean Corpuscular Volume 86, Mean Corpuscular Hemoglobin 28.4, Mean Corpuscular Hemoglobin Concent 32.9, Red Cell Distribution Width 11.8, Platelet Count 310, Mean Platelet Volume 6.6, Neutrophils (%) (Auto) 70.7, Lymphocytes (% ) (Auto) 18.6L, Monocytes (%) (Auto) 10.1H, Eosinophils (%) (Auto) 0.2, Basophils (%) (Auto) 0.5, Sodium Level 136, Potassium Level 4.1, Chloride Level 102, Carbon Dioxide Level 27, Anion Gap 7, Blood Urea Nitrogen 21H, Creatinine 1.1, Estimat Glomerular Filtration Rate > 60, Glucose Level 241H, Uric Acid 4.2 , Calcium Level 8.9, Phosphorus Level 2.5, Magnesium Level 1.6L, Total Bilirubin 0.6, Aspartate Amino Transf (AST/SGOT) 19, Alanine Aminotransferase ( ALT/SGPT) 29, Alkaline Phosphatase 55, Troponin I 0.145H, C-Reactive Protein, Quantitative 3.7H, Pro-B-Type Natriuretic Peptide 123, Total Protein 6.6, Albumin 2.7L, Globulin 3.9, Albumin/Globulin Ratio 0.7L Height (Feet): 5 Height (Inches): 10.00 Weight (Pounds): 136 Objective Current Medications Medications (Trade) Dose Ordered Sig/Jose Route PRN Reason Start Time Stop Time Status Last Admin Dose Admin Acetaminophen (Tylenol) 650 mg Q6H PRN ORAL mod pain/temp 101 or greater 11/19/19 21:45 12/19/19 21:44 Aspirin (ASA) 81 mg DAILY ORAL 11/20/19 09:00 01/04/20 08:59 11/22/19 09:14 Atorvastatin Calcium (Lipitor) 10 mg DAILY ORAL 11/21/19 09:00 02/19/20 08:59 11/22/19 09:14 Ceftriaxone Sodium 1 gm/ Dextrose 55 ml @ 110 mls/hr Q24H IVPB 11/20/19 09:00 11/27/19 08:59 11/21/19 09:01 Dextrose (Dextrose 50%) 25 ml Q30M PRN IV Hypoglycemia 11/20/19 20:00 02/18/20 19:59 Dextrose (Dextrose 50%) 50 ml NEEDED PRN IV for blood sugar <70 11/19/19 22:15 02/17/20 22:14 Dextrose (Dextrose 50%) 50 ml Q30M PRN IV Hypoglycemia 11/20/19 20:00 02/18/20 19:59 Enoxaparin Sodium (Lovenox) 40 mg DAILY SUBQ 11/21/19 09:00 02/19/20 08:59 11/22/19 09:16 Haloperidol Lactate (Haldol) 5 mg Q6H PRN IM Agitation 11/22/19 00:45 01/06/20 00:44 Insulin Aspart (NovoLOG) BEFORE MEALS AND HS SUBQ 11/20/19 21:00 02/18/20 20:59 11/22/19 21:44 Metoprolol Tartrate (Lopressor) 12.5 mg EVERY 12 HOURS ORAL 11/20/19 21:00 02/18/20 20:59 11/22/19 21:41 Nateglinide (Starlix) 60 mg TIAC ORAL 11/21/19 16:30 12/21/19 16:29 11/23/19 06:05 Olanzapine (ZyPREXA) 2.5 mg BEDTIME ORAL 11/22/19 21:00 01/06/20 20:59 11/22/19 21:40 Sitagliptin Phosphate (Januvia) 100 mg ACBREAKFAST ORAL 11/21/19 15:00 12/21/19 14:59 11/23/19 06:05 Vinicius Gunter MD Nov 23, 2019 06:52
[2019-11-23 08:00] VITALS: BP 150/68
[2019-11-23] MEDS: Enoxaparin 40mg Inj SUBQ SCH ×2 (09:00→09:02)
[2019-11-23] MEDS: Aspirin Baby 81mg ORAL SCH ×2 (09:00→09:02)
[2019-11-23] MEDS: Metoprolol Tartrate 12.5mg TAB ORAL SCH ×2 (09:01→20:42)
[2019-11-23] MEDS: cefTRIAXone 1 GM in D5W 55 ML IVPB SCH (09:02)
--- NOTE | 2019-11-23 10:32 | Nephrology Progress Note ---
Assessment/Plan Problem List: (1) Electrolyte imbalance Assessment: Hyponatremia (2) Diabetes mellitus (3) Hypoglycemia (4) COVID-19 (5) Pneumonia (6) UTI (urinary tract infection) (7) NSTEMI (non-ST elevated myocardial infarction) Assessment Hyponatremia likely depletional Diabetes mellitus, with periodic hypoglycemia Non-STEMI COVID-19, pneumonia UTI Hypertension Previous CVA Plan November 22: Labs reviewed. Renal parameters stable. Magnesium slightly low. IV magnesium ordered. Continue per consultants. November 21: No labs available. Physical examination and vital signs are all okay. Psychiatric evaluation noted and appreciated. Patient lacks capacity to make decisions and refuse labs. Patient been refusing blood draw and taking medication today according to the RN Keep the blood pressure and blood sugar in check as possible Slow hydrate Monitor electrolytes Per consultants Subjective ROS Limited/Unobtainable: No Objective Objective Last 24 Hour Vital Signs Date Time Temp Pulse Resp B/P (MAP) Pulse Ox O2 Delivery O2 Flow Rate FiO2 11/23/19 09:01 67 150/68 11/23/19 04:00 58 11/23/19 00:00 59 11/23/19 00:00 97.0 78 20 144/70 (94) 100 11/22/19 21:41 71 142/67 11/22/19 21:00 Room Air 11/22/19 20:00 73 11/22/19 20:00 98.1 71 20 142/67 (92) 96 11/22/19 16:00 97.4 68 20 137/64 (88) 97 11/22/19 15:13 63 11/22/19 12:00 97.3 75 20 140/74 (96) 97 11/22/19 11:45 84 Intake and Output 11/22/19 11/23/19 19:00 07:00 Intake Total 480 ml Balance 480 ml Intake Oral 480 ml # Voids 1 2 Current Medications Medications (Trade) Dose Ordered Sig/Jose Route PRN Reason Start Time Stop Time Status Last Admin Dose Admin Acetaminophen (Tylenol) 650 mg Q6H PRN ORAL mod pain/temp 101 or greater 11/19/19 21:45 12/19/19 21:44 Aspirin (ASA) 81 mg DAILY ORAL 11/20/19 09:00 01/04/20 08:59 11/22/19 09:14 Atorvastatin Calcium (Lipitor) 10 mg DAILY ORAL 11/21/19 09:00 02/19/20 08:59 11/22/19 09:14 Ceftriaxone Sodium 1 gm/ Dextrose 55 ml @ 110 mls/hr Q24H IVPB 11/20/19 09:00 11/27/19 08:59 11/21/19 09:01 Dextrose (Dextrose 50%) 25 ml Q30M PRN IV Hypoglycemia 11/20/19 20:00 02/18/20 19:59 Dextrose (Dextrose 50%) 50 ml NEEDED PRN IV for blood sugar <70 11/19/19 22:15 02/17/20 22:14 Dextrose (Dextrose 50%) 50 ml Q30M PRN IV Hypoglycemia 11/20/19 20:00 02/18/20 19:59 Enoxaparin Sodium (Lovenox) 40 mg DAILY SUBQ 11/21/19 09:00 02/19/20 08:59 11/22/19 09:16 Haloperidol Lactate (Haldol) 5 mg Q6H PRN IM Agitation 11/22/19 00:45 01/06/20 00:44 Insulin Aspart (NovoLOG) BEFORE MEALS AND HS SUBQ 11/20/19 21:00 02/18/20 20:59 11/22/19 21:44 Metoprolol Tartrate (Lopressor) 12.5 mg EVERY 12 HOURS ORAL 11/20/19 21:00 02/18/20 20:59 11/23/19 09:01 Nateglinide (Starlix) 60 mg TIAC ORAL 11/21/19 16:30 12/21/19 16:29 11/23/19 06:05 Olanzapine (ZyPREXA) 2.5 mg BEDTIME ORAL 11/22/19 21:00 01/06/20 20:59 11/22/19 21:40 Sitagliptin Phosphate (Januvia) 100 mg ACBREAKFAST ORAL 11/21/19 15:00 12/21/19 14:59 11/23/19 06:05 Laboratory Tests 11/22/19 11:37: POC Whole Blood Glucose 323H 11/22/19 16:46: POC Whole Blood Glucose 325H 11/23/19 02:55: White Blood Count 8.9, Red Blood Count 3.26L, Hemoglobin 9.3L, Hematocrit 28.1L , Mean Corpuscular Volume 86, Mean Corpuscular Hemoglobin 28.4, Mean Corpuscular Hemoglobin Concent 32.9, Red Cell Distribution Width 11.8, Platelet Count 310, Mean Platelet Volume 6.6, Neutrophils (%) (Auto) 70.7, Lymphocytes (% ) (Auto) 18.6L, Monocytes (%) (Auto) 10.1H, Eosinophils (%) (Auto) 0.2, Basophils (%) (Auto) 0.5, Sodium Level 136, Potassium Level 4.1, Chloride Level 102, Carbon Dioxide Level 27, Anion Gap 7, Blood Urea Nitrogen 21H, Creatinine 1.1, Estimat Glomerular Filtration Rate > 60, Glucose Level 241H, Uric Acid 4.2 , Calcium Level 8.9, Phosphorus Level 2.5, Magnesium Level 1.6L, Total Bilirubin 0.6, Aspartate Amino Transf (AST/SGOT) 19, Alanine Aminotransferase ( ALT/SGPT) 29, Alkaline Phosphatase 55, Troponin I 0.145H, C-Reactive Protein, Quantitative 3.7H, Pro-B-Type Natriuretic Peptide 123, Total Protein 6.6, Albumin 2.7L, Globulin 3.9, Albumin/Globulin Ratio 0.7L Height (Feet): 5 Height (Inches): 10.00 Weight (Pounds): 136 General Appearance: no apparent distress Cardiovascular: normal rate Respiratory/Chest: decreased breath sounds Abdomen: soft Objective Unchanged Ilya López MD Nov 23, 2019 10:32
--- NOTE | 2019-11-23 10:44 | Pulmonology Progress Note ---
Subjective ROS Limited/Unobtainable: No Interval Events: None new Constitutional: Reports: other - Wants to go home; Denies: fever HEENT: Repors: no symptoms Respiratory: Reports: dry cough Cardiovascular: Reports: no symptoms Gastrointestinal/Abdominal: Reports: no symptoms Psychiatric: Reports: other - noncomplaint with medications Allergies: Coded Allergies: No Known Allergies (Unverified , 11/19/19) Objective Last 24 Hour Vital Signs Date Time Temp Pulse Resp B/P (MAP) Pulse Ox O2 Delivery O2 Flow Rate FiO2 11/23/19 09:01 67 150/68 11/23/19 04:00 58 11/23/19 00:00 59 11/23/19 00:00 97.0 78 20 144/70 (94) 100 11/22/19 21:41 71 142/67 11/22/19 21:00 Room Air 11/22/19 20:00 73 11/22/19 20:00 98.1 71 20 142/67 (92) 96 11/22/19 16:00 97.4 68 20 137/64 (88) 97 11/22/19 15:13 63 11/22/19 12:00 97.3 75 20 140/74 (96) 97 11/22/19 11:45 84 Intake and Output 11/22/19 11/23/19 19:00 07:00 Intake Total 480 ml Balance 480 ml Intake Oral 480 ml # Voids 1 2 General Appearance: no acute distress HEENT: normocephalic Respiratory: chest wall non-tender, lungs clear Cardiovascular: normal peripheral pulses, normal rate Abdomen: normal bowel sounds Laboratory Tests 11/22/19 11:37: POC Whole Blood Glucose 323H 11/22/19 16:46: POC Whole Blood Glucose 325H 11/23/19 02:55: White Blood Count 8.9, Red Blood Count 3.26L, Hemoglobin 9.3L, Hematocrit 28.1L , Mean Corpuscular Volume 86, Mean Corpuscular Hemoglobin 28.4, Mean Corpuscular Hemoglobin Concent 32.9, Red Cell Distribution Width 11.8, Platelet Count 310, Mean Platelet Volume 6.6, Neutrophils (%) (Auto) 70.7, Lymphocytes (% ) (Auto) 18.6L, Monocytes (%) (Auto) 10.1H, Eosinophils (%) (Auto) 0.2, Basophils (%) (Auto) 0.5, Sodium Level 136, Potassium Level 4.1, Chloride Level 102, Carbon Dioxide Level 27, Anion Gap 7, Blood Urea Nitrogen 21H, Creatinine 1.1, Estimat Glomerular Filtration Rate > 60, Glucose Level 241H, Uric Acid 4.2 , Calcium Level 8.9, Phosphorus Level 2.5, Magnesium Level 1.6L, Total Bilirubin 0.6, Aspartate Amino Transf (AST/SGOT) 19, Alanine Aminotransferase ( ALT/SGPT) 29, Alkaline Phosphatase 55, Troponin I 0.145H, C-Reactive Protein, Quantitative 3.7H, Pro-B-Type Natriuretic Peptide 123, Total Protein 6.6, Albumin 2.7L, Globulin 3.9, Albumin/Globulin Ratio 0.7L Current Medications Medications (Trade) Dose Ordered Sig/Jose Route PRN Reason Start Time Stop Time Status Last Admin Dose Admin Acetaminophen (Tylenol) 650 mg Q6H PRN ORAL mod pain/temp 101 or greater 11/19/19 21:45 12/19/19 21:44 Aspirin (ASA) 81 mg DAILY ORAL 11/20/19 09:00 01/04/20 08:59 11/22/19 09:14 Atorvastatin Calcium (Lipitor) 10 mg DAILY ORAL 11/21/19 09:00 02/19/20 08:59 11/22/19 09:14 Ceftriaxone Sodium 1 gm/ Dextrose 55 ml @ 110 mls/hr Q24H IVPB 11/20/19 09:00 11/27/19 08:59 11/21/19 09:01 Dextrose (Dextrose 50%) 25 ml Q30M PRN IV Hypoglycemia 11/20/19 20:00 02/18/20 19:59 Dextrose (Dextrose 50%) 50 ml NEEDED PRN IV for blood sugar <70 11/19/19 22:15 02/17/20 22:14 Dextrose (Dextrose 50%) 50 ml Q30M PRN IV Hypoglycemia 11/20/19 20:00 02/18/20 19:59 Enoxaparin Sodium (Lovenox) 40 mg DAILY SUBQ 11/21/19 09:00 02/19/20 08:59 11/22/19 09:16 Haloperidol Lactate (Haldol) 5 mg Q6H PRN IM Agitation 11/22/19 00:45 01/06/20 00:44 Insulin Aspart (NovoLOG) BEFORE MEALS AND HS SUBQ 11/20/19 21:00 02/18/20 20:59 11/22/19 21:44 Metoprolol Tartrate (Lopressor) 12.5 mg EVERY 12 HOURS ORAL 11/20/19 21:00 02/18/20 20:59 11/23/19 09:01 Nateglinide (Starlix) 60 mg TIAC ORAL 11/21/19 16:30 12/21/19 16:29 11/23/19 06:05 Olanzapine (ZyPREXA) 2.5 mg BEDTIME ORAL 11/22/19 21:00 01/06/20 20:59 11/22/19 21:40 Sitagliptin Phosphate (Januvia) 100 mg ACBREAKFAST ORAL 11/21/19 15:00 12/21/19 14:59 11/23/19 06:05 Assessment/Plan Assessment/Plan IMPRESSION: 1. COVID19 pneumonia. 2. Hypoglycemia. 3. Diabetes mellitus. 4. Hypertension. 5. CVA. DISCUSSION: Continue medications I will follow carefully. Saturating well on RA Cesar Hancock Omar Syed MD Nov 23, 2019 10:44
--- NOTE | 2019-11-23 11:42 | Infectious Diseases Prog Note ---
Assessment/Plan Assessment/Plan IMPRESSION: COVID-19 disease Diabetes mellitus with hypoglycemia, Hypertension, Anemia, elevation in troponin. RECOMMENDATION: Discontinue ceftriaxone. Observe off of antibiotic Subjective ROS Limited/Unobtainable: Yes Constitutional: Reports: other - wants to go home; Denies: fever Allergies: Coded Allergies: No Known Allergies (Unverified , 11/19/19) Objective Last 24 Hour Vital Signs Date Time Temp Pulse Resp B/P (MAP) Pulse Ox O2 Delivery O2 Flow Rate FiO2 11/23/19 09:01 67 150/68 11/23/19 04:00 58 11/23/19 00:00 59 11/23/19 00:00 97.0 78 20 144/70 (94) 100 11/22/19 21:41 71 142/67 11/22/19 21:00 Room Air 11/22/19 20:00 73 11/22/19 20:00 98.1 71 20 142/67 (92) 96 11/22/19 16:00 97.4 68 20 137/64 (88) 97 11/22/19 15:13 63 11/22/19 12:00 97.3 75 20 140/74 (96) 97 11/22/19 11:45 84 Height (Feet): 5 Height (Inches): 10.00 Weight (Pounds): 136 General Appearance: no acute distress HEENT: mucous membranes moist Respiratory/Chest: no accessory muscle use, respiratory distress Cardiovascular: normal rate Abdomen: soft, non tender Extremities: no edema Neurologic/Psychiatric: alert, responsive Laboratory Tests Test 11/22/19 16:46 11/23/19 02:55 POC Whole Blood Glucose 325 MG/DL (74-106) H White Blood Count 8.9 K/UL (4.8-10.8) Red Blood Count 3.26 M/UL (4.70-6.10) L Hemoglobin 9.3 G/DL (14.2-18.0) L Hematocrit 28.1 % (42.0-52.0) L Mean Corpuscular Volume 86 FL (80-99) Mean Corpuscular Hemoglobin 28.4 PG (27.0-31.0) Mean Corpuscular Hemoglobin Concent 32.9 G/DL (32.0-36.0) Red Cell Distribution Width 11.8 % (11.6-14.8) Platelet Count 310 K/UL (150-450) Mean Platelet Volume 6.6 FL (6.5-10.1) Neutrophils (%) (Auto) 70.7 % (45.0-75.0) Lymphocytes (%) (Auto) 18.6 % (20.0-45.0) L Monocytes (%) (Auto) 10.1 % (1.0-10.0) H Eosinophils (%) (Auto) 0.2 % (0.0-3.0) Basophils (%) (Auto) 0.5 % (0.0-2.0) Sodium Level 136 MMOL/L (136-145) Potassium Level 4.1 MMOL/L (3.5-5.1) Chloride Level 102 MMOL/L (98-107) Carbon Dioxide Level 27 MMOL/L (21-32) Anion Gap 7 mmol/L (5-15) Blood Urea Nitrogen 21 mg/dL (7-18) H Creatinine 1.1 MG/DL (0.55-1.30) Estimat Glomerular Filtration Rate > 60 mL/min (>60) Glucose Level 241 MG/DL (74-106) H Uric Acid 4.2 MG/DL (2.6-7.2) Calcium Level 8.9 MG/DL (8.5-10.1) Phosphorus Level 2.5 MG/DL (2.5-4.9) Magnesium Level 1.6 MG/DL (1.8-2.4) L Total Bilirubin 0.6 MG/DL (0.2-1.0) Aspartate Amino Transf (AST/SGOT) 19 U/L (15-37) Alanine Aminotransferase (ALT/SGPT) 29 U/L (12-78) Alkaline Phosphatase 55 U/L (46-116) Troponin I 0.145 ng/mL (0.000-0.056) C-Reactive Protein, Quantitative 3.7 mg/dL (0.00-0.90) H Pro-B-Type Natriuretic Peptide 123 pg/mL (0-125) Total Protein 6.6 G/DL (6.4-8.2) Albumin 2.7 G/DL (3.4-5.0) L Globulin 3.9 g/dL Albumin/Globulin Ratio 0.7 (1.0-2.7) L Current Medications Medications (Trade) Dose Ordered Sig/Jose Route PRN Reason Start Time Stop Time Status Last Admin Dose Admin Acetaminophen (Tylenol) 650 mg Q6H PRN ORAL mod pain/temp 101 or greater 11/19/19 21:45 12/19/19 21:44 Aspirin (ASA) 81 mg DAILY ORAL 11/20/19 09:00 01/04/20 08:59 11/22/19 09:14 Atorvastatin Calcium (Lipitor) 10 mg DAILY ORAL 11/21/19 09:00 02/19/20 08:59 11/22/19 09:14 Ceftriaxone Sodium 1 gm/ Dextrose 55 ml @ 110 mls/hr Q24H IVPB 11/20/19 09:00 11/27/19 08:59 11/21/19 09:01 Dextrose (Dextrose 50%) 25 ml Q30M PRN IV Hypoglycemia 11/20/19 20:00 02/18/20 19:59 Dextrose (Dextrose 50%) 50 ml NEEDED PRN IV for blood sugar <70 11/19/19 22:15 02/17/20 22:14 Dextrose (Dextrose 50%) 50 ml Q30M PRN IV Hypoglycemia 11/20/19 20:00 02/18/20 19:59 Enoxaparin Sodium (Lovenox) 40 mg DAILY SUBQ 11/21/19 09:00 02/19/20 08:59 11/22/19 09:16 Haloperidol Lactate (Haldol) 5 mg Q6H PRN IM Agitation 11/22/19 00:45 01/06/20 00:44 Insulin Aspart (NovoLOG) BEFORE MEALS AND HS SUBQ 11/20/19 21:00 02/18/20 20:59 11/22/19 21:44 Metoprolol Tartrate (Lopressor) 12.5 mg EVERY 12 HOURS ORAL 11/20/19 21:00 02/18/20 20:59 11/23/19 09:01 Nateglinide (Starlix) 60 mg TIAC ORAL 11/21/19 16:30 12/21/19 16:29 11/23/19 06:05 Olanzapine (ZyPREXA) 2.5 mg BEDTIME ORAL 11/22/19 21:00 01/06/20 20:59 11/22/19 21:40 Sitagliptin Phosphate (Januvia) 100 mg ACBREAKFAST ORAL 11/21/19 15:00 12/21/19 14:59 11/23/19 06:05 Josh Contreras MD Nov 23, 2019 11:42
[2019-11-23 12:00] VITALS: BP 152/70
--- NOTE | 2019-11-23 14:14 | General Progress Note ---
Assessment/Plan Problem List: (1) UTI (urinary tract infection) ICD Codes: N39.0 - Urinary tract infection, site not specified SNOMED: 77257891 (2) Pneumonia ICD Codes: J18.9 - Pneumonia, unspecified organism SNOMED: 174023204 (3) COVID-19 ICD Codes: U07.1 - COVID-19 SNOMED: 192075064 (4) Hypoglycemia ICD Codes: E16.2 - Hypoglycemia, unspecified SNOMED: 149853480 (5) NSTEMI (non-ST elevated myocardial infarction) ICD Codes: I21.4 - Non-ST elevation (NSTEMI) myocardial infarction SNOMED: 62758697 Status: unchanged Assessment/Plan: abx pt diet bs control cbc bmp am Subjective Constitutional: Reports: weakness Allergies: Coded Allergies: No Known Allergies (Unverified , 11/19/19) All Systems: reviewed and negative except above Subjective calm in bed Objective Last 24 Hour Vital Signs Date Time Temp Pulse Resp B/P (MAP) Pulse Ox O2 Delivery O2 Flow Rate FiO2 11/23/19 12:00 97.7 58 20 152/70 (97) 99 11/23/19 12:00 64 11/23/19 09:01 67 150/68 11/23/19 09:00 Room Air 11/23/19 08:00 56 11/23/19 08:00 97.7 67 20 150/68 (95) 98 11/23/19 04:00 58 11/23/19 00:00 59 11/23/19 00:00 97.0 78 20 144/70 (94) 100 11/22/19 21:41 71 142/67 11/22/19 21:00 Room Air 11/22/19 20:00 73 11/22/19 20:00 98.1 71 20 142/67 (92) 96 11/22/19 16:00 97.4 68 20 137/64 (88) 97 11/22/19 15:13 63 Intake and Output 11/22/19 11/23/19 19:00 07:00 Intake Total 480 ml Balance 480 ml Intake Oral 480 ml # Voids 1 2 Laboratory Tests 11/22/19 16:46: POC Whole Blood Glucose 325H 11/23/19 02:55: White Blood Count 8.9, Red Blood Count 3.26L, Hemoglobin 9.3L, Hematocrit 28.1L , Mean Corpuscular Volume 86, Mean Corpuscular Hemoglobin 28.4, Mean Corpuscular Hemoglobin Concent 32.9, Red Cell Distribution Width 11.8, Platelet Count 310, Mean Platelet Volume 6.6, Neutrophils (%) (Auto) 70.7, Lymphocytes (% ) (Auto) 18.6L, Monocytes (%) (Auto) 10.1H, Eosinophils (%) (Auto) 0.2, Basophils (%) (Auto) 0.5, Sodium Level 136, Potassium Level 4.1, Chloride Level 102, Carbon Dioxide Level 27, Anion Gap 7, Blood Urea Nitrogen 21H, Creatinine 1.1, Estimat Glomerular Filtration Rate > 60, Glucose Level 241H, Uric Acid 4.2 , Calcium Level 8.9, Phosphorus Level 2.5, Magnesium Level 1.6L, Total Bilirubin 0.6, Aspartate Amino Transf (AST/SGOT) 19, Alanine Aminotransferase ( ALT/SGPT) 29, Alkaline Phosphatase 55, Troponin I 0.145H, C-Reactive Protein, Quantitative 3.7H, Pro-B-Type Natriuretic Peptide 123, Total Protein 6.6, Albumin 2.7L, Globulin 3.9, Albumin/Globulin Ratio 0.7L Height (Feet): 5 Height (Inches): 10.00 Weight (Pounds): 136 General Appearance: lethargic EENT: normal ENT inspection Neck: normal alignment Cardiovascular: normal rate, regular rhythm Respiratory/Chest: no respiratory distress, no accessory muscle use Extremities: normal inspection Skin: normal pigmentation, warm/dry Benjamín Caputo DO Nov 23, 2019 14:14
--- NOTE | 2019-11-23 17:35 | Cardiac Electrophysiology PN ---
Assessment/Plan Assessment/Plan 1. Troponin elevation 0.2 and 0.145 and inferolateral ischemia. He does not currently have chest pain. On aspirin, Metoprolol 12.5 bid and Lipitor 10 daily. Echocardiogram EF 65% 2. Positive COVID. 3. Uncontrolled diabetes. 4. Hypertension, On Lopressor 5. History of CVA. Subjective Subjective In isolation.No events Objective Last 24 Hour Vital Signs Date Time Temp Pulse Resp B/P (MAP) Pulse Ox O2 Delivery O2 Flow Rate FiO2 11/23/19 16:00 61 11/23/19 12:00 97.7 58 20 152/70 (97) 99 11/23/19 12:00 64 11/23/19 09:01 67 150/68 11/23/19 09:00 Room Air 11/23/19 08:00 56 11/23/19 08:00 97.7 67 20 150/68 (95) 98 11/23/19 04:00 58 11/23/19 00:00 59 11/23/19 00:00 97.0 78 20 144/70 (94) 100 11/22/19 21:41 71 142/67 11/22/19 21:00 Room Air 11/22/19 20:00 73 11/22/19 20:00 98.1 71 20 142/67 (92) 96 Intake and Output 11/22/19 11/23/19 19:00 07:00 Intake Total 480 ml Balance 480 ml Intake Oral 480 ml # Voids 1 2 Laboratory Tests Test 11/23/19 02:55 White Blood Count 8.9 K/UL (4.8-10.8) Red Blood Count 3.26 M/UL (4.70-6.10) L Hemoglobin 9.3 G/DL (14.2-18.0) L Hematocrit 28.1 % (42.0-52.0) L Mean Corpuscular Volume 86 FL (80-99) Mean Corpuscular Hemoglobin 28.4 PG (27.0-31.0) Mean Corpuscular Hemoglobin Concent 32.9 G/DL (32.0-36.0) Red Cell Distribution Width 11.8 % (11.6-14.8) Platelet Count 310 K/UL (150-450) Mean Platelet Volume 6.6 FL (6.5-10.1) Neutrophils (%) (Auto) 70.7 % (45.0-75.0) Lymphocytes (%) (Auto) 18.6 % (20.0-45.0) L Monocytes (%) (Auto) 10.1 % (1.0-10.0) H Eosinophils (%) (Auto) 0.2 % (0.0-3.0) Basophils (%) (Auto) 0.5 % (0.0-2.0) Sodium Level 136 MMOL/L (136-145) Potassium Level 4.1 MMOL/L (3.5-5.1) Chloride Level 102 MMOL/L (98-107) Carbon Dioxide Level 27 MMOL/L (21-32) Anion Gap 7 mmol/L (5-15) Blood Urea Nitrogen 21 mg/dL (7-18) H Creatinine 1.1 MG/DL (0.55-1.30) Estimat Glomerular Filtration Rate > 60 mL/min (>60) Glucose Level 241 MG/DL (74-106) H Uric Acid 4.2 MG/DL (2.6-7.2) Calcium Level 8.9 MG/DL (8.5-10.1) Phosphorus Level 2.5 MG/DL (2.5-4.9) Magnesium Level 1.6 MG/DL (1.8-2.4) L Total Bilirubin 0.6 MG/DL (0.2-1.0) Aspartate Amino Transf (AST/SGOT) 19 U/L (15-37) Alanine Aminotransferase (ALT/SGPT) 29 U/L (12-78) Alkaline Phosphatase 55 U/L (46-116) Troponin I 0.145 ng/mL (0.000-0.056) C-Reactive Protein, Quantitative 3.7 mg/dL (0.00-0.90) H Pro-B-Type Natriuretic Peptide 123 pg/mL (0-125) Total Protein 6.6 G/DL (6.4-8.2) Albumin 2.7 G/DL (3.4-5.0) L Globulin 3.9 g/dL Albumin/Globulin Ratio 0.7 (1.0-2.7) L Objective HEAD AND NECK: No JVD. LUNGS: Coarse rhonchi. CARDIOVASCULAR: Regular S1 and S2 with no gallop or murmur. ABDOMEN: Soft. EXTREMITIES: No pitting edema. ToluieSean MD Nov 23, 2019 17:35
[2019-11-23 20:00] VITALS: BP 169/76
[2019-11-23] MEDS: OLANZapine 2.5mg tab ORAL SCH (20:41)
--- NOTE | 2019-11-23 23:42 | Psych Consult Progress Note ---
Psychiatry Progress Note Psychiatry Progress Note Subjective pt is the same cogn impairment Medications Current Medications Medications (Trade) Dose Ordered Sig/Jose Route PRN Reason Start Time Stop Time Status Last Admin Dose Admin Acetaminophen (Tylenol) 650 mg Q6H PRN ORAL mod pain/temp 101 or greater 11/19/19 21:45 12/19/19 21:44 Aspirin (ASA) 81 mg DAILY ORAL 11/20/19 09:00 01/04/20 08:59 11/22/19 09:14 Atorvastatin Calcium (Lipitor) 10 mg DAILY ORAL 11/21/19 09:00 02/19/20 08:59 11/22/19 09:14 Dextrose (Dextrose 50%) 25 ml Q30M PRN IV Hypoglycemia 11/20/19 20:00 02/18/20 19:59 Dextrose (Dextrose 50%) 50 ml Q30M PRN IV Hypoglycemia 11/20/19 20:00 02/18/20 19:59 Enoxaparin Sodium (Lovenox) 40 mg DAILY SUBQ 11/21/19 09:00 02/19/20 08:59 11/22/19 09:16 Haloperidol Lactate (Haldol) 5 mg Q6H PRN IM Agitation 11/22/19 00:45 01/06/20 00:44 Insulin Aspart (NovoLOG) BEFORE MEALS AND HS SUBQ 11/20/19 21:00 02/18/20 20:59 11/23/19 20:43 Metoprolol Tartrate (Lopressor) 12.5 mg EVERY 12 HOURS ORAL 11/20/19 21:00 02/18/20 20:59 11/23/19 20:42 Nateglinide (Starlix) 60 mg TIAC ORAL 11/21/19 16:30 12/21/19 16:29 11/23/19 06:05 Olanzapine (ZyPREXA) 2.5 mg BEDTIME ORAL 11/22/19 21:00 01/06/20 20:59 11/23/19 20:41 Sitagliptin Phosphate (Januvia) 100 mg ACBREAKFAST ORAL 11/21/19 15:00 12/21/19 14:59 11/23/19 06:05 Neurological/Psychiatric: Reports: anxiety, depressed, emotional problems Allergies: Coded Allergies: No Known Allergies (Unverified , 11/19/19) Objective Data Height (Feet): 5 Height (Inches): 10.00 Weight (Pounds): 136 General Appearance: WD/WN, no apparent distress, alert Additional Comments: awake, disoriented. Mood is anxious. Affect is blunted. Thought process is concrete. Thought content, no suicidal or homicidal ideation. Cognition is impaired. Insight and judgment impaired. Assessment/Plan [place] I: ASSESSMENT: AXIS I: Vascular dementia. Rule out acute encephalopathy. AXIS II: Deferred. AXIS III: COVID-19. AXIS IV: Low. AXIS V: 20. PLAN: 1. The patient lacks capacity to refuse procedures and labs. 2. Suggestive the Haldol prior to the lab draw and place the patient on bilateral restraints. Status: unchanged Status Narrative ASSESSMENT: AXIS I: Vascular dementia. Rule out acute encephalopathy. AXIS II: Deferred. AXIS III: COVID-19. AXIS IV: Low. AXIS V: 20. PLAN: 1. The patient lacks capacity to refuse procedures and labs. 2. Suggestive the Haldol prior to the lab draw and place the patient on bilateral restraints. Assessment/Plan: ASSESSMENT: AXIS I: Vascular dementia. Rule out acute encephalopathy. AXIS II: Deferred. AXIS III: COVID-19. AXIS IV: Low. AXIS V: 20. PLAN: 1. The patient lacks capacity to refuse procedures and labs. 2. Suggestive the Haldol prior to the lab draw and place the patient on bilateral restraints. Reno Gooden MD Nov 23, 2019 23:42
[2019-11-24] VITALS: BP 155/69
[2019-11-24 04:00] VITALS: BP 168/78
[2019-11-24] MEDS: Nateglinide 60mg tab ORAL SCH ×3 (06:30→17:23)
[2019-11-24] MEDS: NovoLOG Insulin Flexpen SUBQ SCH ×4 (06:30→21:00)
[2019-11-24 08:00] VITALS: BP 169/80
[2019-11-24] MEDS: Metoprolol Tartrate 12.5mg TAB ORAL SCH ×2 (09:00→21:00)
[2019-11-24] MEDS: Enoxaparin 40mg Inj SUBQ SCH ×2 (09:00→09:09)
[2019-11-24] MEDS: Aspirin Baby 81mg ORAL SCH ×2 (09:00→09:07)
--- NOTE | 2019-11-24 09:15 | General Progress Note ---
Assessment/Plan Problem List: (1) UTI (urinary tract infection) ICD Codes: N39.0 - Urinary tract infection, site not specified SNOMED: 84732575 (2) Pneumonia ICD Codes: J18.9 - Pneumonia, unspecified organism SNOMED: 804449474 (3) COVID-19 ICD Codes: U07.1 - COVID-19 SNOMED: 770762968 (4) Hypoglycemia ICD Codes: E16.2 - Hypoglycemia, unspecified SNOMED: 939119428 (5) NSTEMI (non-ST elevated myocardial infarction) ICD Codes: I21.4 - Non-ST elevation (NSTEMI) myocardial infarction SNOMED: 87440041 Status: unchanged Assessment/Plan: abx pt diet bs control cbc bmp am Subjective Constitutional: Reports: weakness Allergies: Coded Allergies: No Known Allergies (Unverified , 11/19/19) All Systems: reviewed and negative except above Subjective calm in bed Objective Last 24 Hour Vital Signs Date Time Temp Pulse Resp B/P (MAP) Pulse Ox O2 Delivery O2 Flow Rate FiO2 11/24/19 09:00 55 169/80 11/24/19 08:00 55 11/24/19 08:00 98.2 60 20 169/80 (109) 97 11/24/19 04:00 64 11/24/19 04:00 98.0 62 19 168/78 (108) 96 11/24/19 00:00 97.9 59 19 155/69 (97) 96 11/23/19 21:00 Room Air 11/23/19 20:42 61 169/76 11/23/19 20:00 97.5 61 20 169/76 (107) 95 11/23/19 20:00 61 11/23/19 16:00 61 11/23/19 12:00 97.7 58 20 152/70 (97) 99 11/23/19 12:00 64 Intake and Output 11/23/19 11/24/19 19:00 07:00 Intake Total 360 ml Balance 360 ml Intake Oral 360 ml # Voids 4 Laboratory Tests 11/23/19 20:40: POC Whole Blood Glucose [Pending] Height (Feet): 5 Height (Inches): 10.00 Weight (Pounds): 136 General Appearance: lethargic EENT: normal ENT inspection Neck: normal alignment Cardiovascular: normal rate, regular rhythm Respiratory/Chest: no respiratory distress, no accessory muscle use Extremities: normal inspection Skin: normal pigmentation Benjamín Caputo DO Nov 24, 2019 09:15
--- NOTE | 2019-11-24 09:54 | Pulmonology Progress Note ---
Subjective ROS Limited/Unobtainable: Yes Interval Events: None new Constitutional: Reports: other - wants to go home; Denies: fever HEENT: Repors: no symptoms Respiratory: Reports: dry cough Cardiovascular: Reports: no symptoms Gastrointestinal/Abdominal: Reports: no symptoms Psychiatric: Reports: other - noncomplaint with medications Allergies: Coded Allergies: No Known Allergies (Unverified , 11/19/19) All Systems: reviewed and negative except above Objective Last 24 Hour Vital Signs Date Time Temp Pulse Resp B/P (MAP) Pulse Ox O2 Delivery O2 Flow Rate FiO2 11/24/19 09:00 55 169/80 11/24/19 09:00 Room Air 11/24/19 08:00 55 11/24/19 08:00 98.2 60 20 169/80 (109) 97 11/24/19 04:00 64 11/24/19 04:00 98.0 62 19 168/78 (108) 96 11/24/19 00:00 97.9 59 19 155/69 (97) 96 11/23/19 21:00 Room Air 11/23/19 20:42 61 169/76 11/23/19 20:00 97.5 61 20 169/76 (107) 95 11/23/19 20:00 61 11/23/19 16:00 61 11/23/19 12:00 97.7 58 20 152/70 (97) 99 11/23/19 12:00 64 Intake and Output 11/23/19 11/24/19 19:00 07:00 Intake Total 360 ml Balance 360 ml Intake Oral 360 ml # Voids 4 General Appearance: no acute distress HEENT: normocephalic Respiratory: chest wall non-tender, lungs clear Cardiovascular: normal peripheral pulses, normal rate Abdomen: normal bowel sounds Laboratory Tests 11/23/19 20:40: POC Whole Blood Glucose [Pending] Current Medications Medications (Trade) Dose Ordered Sig/Jose Route PRN Reason Start Time Stop Time Status Last Admin Dose Admin Acetaminophen (Tylenol) 650 mg Q6H PRN ORAL mod pain/temp 101 or greater 11/19/19 21:45 12/19/19 21:44 Aspirin (ASA) 81 mg DAILY ORAL 11/20/19 09:00 01/04/20 08:59 11/22/19 09:14 Atorvastatin Calcium (Lipitor) 10 mg DAILY ORAL 11/21/19 09:00 02/19/20 08:59 11/22/19 09:14 Dextrose (Dextrose 50%) 25 ml Q30M PRN IV Hypoglycemia 11/20/19 20:00 02/18/20 19:59 Dextrose (Dextrose 50%) 50 ml Q30M PRN IV Hypoglycemia 11/20/19 20:00 02/18/20 19:59 Enoxaparin Sodium (Lovenox) 40 mg DAILY SUBQ 11/21/19 09:00 02/19/20 08:59 11/22/19 09:16 Haloperidol Lactate (Haldol) 5 mg Q6H PRN IM Agitation 11/22/19 00:45 01/06/20 00:44 Insulin Aspart (NovoLOG) BEFORE MEALS AND HS SUBQ 11/20/19 21:00 02/18/20 20:59 11/23/19 20:43 Metoprolol Tartrate (Lopressor) 12.5 mg EVERY 12 HOURS ORAL 11/20/19 21:00 02/18/20 20:59 11/23/19 20:42 Nateglinide (Starlix) 60 mg TIAC ORAL 11/21/19 16:30 12/21/19 16:29 11/23/19 06:05 Olanzapine (ZyPREXA) 2.5 mg BEDTIME ORAL 11/22/19 21:00 01/06/20 20:59 11/23/19 20:41 Sitagliptin Phosphate (Januvia) 100 mg ACBREAKFAST ORAL 11/21/19 15:00 12/21/19 14:59 11/23/19 06:05 Assessment/Plan Assessment/Plan IMPRESSION: 1. COVID19 pneumonia. 2. Hypoglycemia. 3. Diabetes mellitus. 4. Hypertension. 5. CVA. DISCUSSION: Continue medications I will follow carefully. Saturating well on RA Cesar Hancock Omar Syed MD Nov 24, 2019 09:54
--- NOTE | 2019-11-24 11:19 | Nephrology Progress Note ---
Assessment/Plan Problem List: (1) Electrolyte imbalance Assessment: Hyponatremia (2) Diabetes mellitus (3) Hypoglycemia (4) COVID-19 (5) Pneumonia (6) UTI (urinary tract infection) (7) NSTEMI (non-ST elevated myocardial infarction) Assessment Hyponatremia likely depletional Diabetes mellitus, with periodic hypoglycemia Non-STEMI COVID-19, pneumonia UTI Hypertension Previous CVA Plan November 23: No labs done today. Clinically stable. Continue per consultants. November 22: Labs reviewed. Renal parameters stable. Magnesium slightly low. IV magnesium ordered. Continue per consultants. November 21: No labs available. Physical examination and vital signs are all okay. Psychiatric evaluation noted and appreciated. Patient lacks capacity to make decisions and refuse labs. Patient been refusing blood draw and taking medication today according to the RN Keep the blood pressure and blood sugar in check as possible Slow hydrate Monitor electrolytes Per consultants Subjective ROS Limited/Unobtainable: No Constitutional: Reports: malaise Objective Objective Last 24 Hour Vital Signs Date Time Temp Pulse Resp B/P (MAP) Pulse Ox O2 Delivery O2 Flow Rate FiO2 11/24/19 09:00 55 169/80 11/24/19 09:00 Room Air 11/24/19 08:00 55 11/24/19 08:00 98.2 60 20 169/80 (109) 97 11/24/19 04:00 64 11/24/19 04:00 98.0 62 19 168/78 (108) 96 11/24/19 00:00 97.9 59 19 155/69 (97) 96 11/23/19 21:00 Room Air 11/23/19 20:42 61 169/76 11/23/19 20:00 97.5 61 20 169/76 (107) 95 11/23/19 20:00 61 11/23/19 16:00 61 11/23/19 12:00 97.7 58 20 152/70 (97) 99 11/23/19 12:00 64 Intake and Output 11/23/19 11/24/19 19:00 07:00 Intake Total 360 ml Balance 360 ml Intake Oral 360 ml # Voids 4 Laboratory Tests 11/23/19 20:40: POC Whole Blood Glucose [Pending] Height (Feet): 5 Height (Inches): 10.00 Weight (Pounds): 136 General Appearance: no apparent distress Cardiovascular: bradycardia Respiratory/Chest: decreased breath sounds Abdomen: soft Objective Unchanged Ilya López MD Nov 24, 2019 11:19
--- NOTE | 2019-11-24 11:46 | Infectious Diseases Prog Note ---
Assessment/Plan Assessment/Plan IMPRESSION: COVID-19 disease Diabetes mellitus with hypoglycemia, Hypertension, Anemia, elevation in troponin. RECOMMENDATION: Discontinue ceftriaxone. Observe off of antibiotic Subjective ROS Limited/Unobtainable: Yes Constitutional: Denies: fever Psychiatric: Reports: other - refuses labs Allergies: Coded Allergies: No Known Allergies (Unverified , 11/19/19) Objective Last 24 Hour Vital Signs Date Time Temp Pulse Resp B/P (MAP) Pulse Ox O2 Delivery O2 Flow Rate FiO2 11/24/19 09:00 55 169/80 11/24/19 09:00 Room Air 11/24/19 08:00 55 11/24/19 08:00 98.2 60 20 169/80 (109) 97 11/24/19 04:00 64 11/24/19 04:00 98.0 62 19 168/78 (108) 96 11/24/19 00:00 97.9 59 19 155/69 (97) 96 11/23/19 21:00 Room Air 11/23/19 20:42 61 169/76 11/23/19 20:00 97.5 61 20 169/76 (107) 95 11/23/19 20:00 61 11/23/19 16:00 61 11/23/19 12:00 97.7 58 20 152/70 (97) 99 11/23/19 12:00 64 Height (Feet): 5 Height (Inches): 10.00 Weight (Pounds): 136 HEENT: mucous membranes moist Respiratory/Chest: no respiratory distress Cardiovascular: normal rate Abdomen: soft, non tender Extremities: no edema Neurologic/Psychiatric: alert, responsive Laboratory Tests Test 11/23/19 20:40 POC Whole Blood Glucose Pending Current Medications Medications (Trade) Dose Ordered Sig/Jose Route PRN Reason Start Time Stop Time Status Last Admin Dose Admin Acetaminophen (Tylenol) 650 mg Q6H PRN ORAL mod pain/temp 101 or greater 11/19/19 21:45 12/19/19 21:44 Aspirin (ASA) 81 mg DAILY ORAL 11/20/19 09:00 01/04/20 08:59 11/22/19 09:14 Atorvastatin Calcium (Lipitor) 10 mg DAILY ORAL 11/21/19 09:00 02/19/20 08:59 11/22/19 09:14 Dextrose (Dextrose 50%) 25 ml Q30M PRN IV Hypoglycemia 11/20/19 20:00 02/18/20 19:59 Dextrose (Dextrose 50%) 50 ml Q30M PRN IV Hypoglycemia 11/20/19 20:00 02/18/20 19:59 Enoxaparin Sodium (Lovenox) 40 mg DAILY SUBQ 11/21/19 09:00 02/19/20 08:59 11/22/19 09:16 Haloperidol Lactate (Haldol) 5 mg Q6H PRN IM Agitation 11/22/19 00:45 01/06/20 00:44 Insulin Aspart (NovoLOG) BEFORE MEALS AND HS SUBQ 11/20/19 21:00 02/18/20 20:59 11/23/19 20:43 Metoprolol Tartrate (Lopressor) 12.5 mg EVERY 12 HOURS ORAL 11/20/19 21:00 02/18/20 20:59 11/23/19 20:42 Nateglinide (Starlix) 60 mg TIAC ORAL 11/21/19 16:30 12/21/19 16:29 11/23/19 06:05 Olanzapine (ZyPREXA) 2.5 mg BEDTIME ORAL 11/22/19 21:00 01/06/20 20:59 11/23/19 20:41 Sitagliptin Phosphate (Januvia) 100 mg ACBREAKFAST ORAL 11/21/19 15:00 12/21/19 14:59 11/23/19 06:05 Josh Contreras MD Nov 24, 2019 11:46
[2019-11-24 11:59] VITALS: BP 145/100
[2019-11-24] MEDS ORDERED: DiphenhydrAMINE 50mg/ml Inj IM SCH (14:00)
[2019-11-24] MEDS ORDERED: LORazepam Inj 2mg/ml 1ml IM SCH (14:00)
[2019-11-24] MEDS ORDERED: Haloperidol Decanoate (Long Acting) 50mg Inj IM SCH (14:30)
--- NOTE | 2019-11-24 14:48 | Cardiac Electrophysiology PN ---
Assessment/Plan Assessment/Plan 1. Troponin elevation 0.2 and 0.145 and inferolateral ischemia. Denies chest pain. On aspirin, Metoprolol 12.5 bid and Lipitor 10 daily. Echocardiogram EF 65% Stress test after Covid negative 2. Positive COVID. 3. Uncontrolled diabetes. 4. Hypertension, On Lopressor 5. History of CVA. Subjective Subjective In isolation.No events. Refusing meds Objective Last 24 Hour Vital Signs Date Time Temp Pulse Resp B/P (MAP) Pulse Ox O2 Delivery O2 Flow Rate FiO2 11/24/19 12:00 66 11/24/19 11:59 145/100 (115) 11/24/19 09:00 55 169/80 11/24/19 09:00 Room Air 11/24/19 08:00 55 11/24/19 08:00 98.2 60 20 169/80 (109) 97 11/24/19 04:00 64 11/24/19 04:00 98.0 62 19 168/78 (108) 96 11/24/19 00:00 97.9 59 19 155/69 (97) 96 11/23/19 21:00 Room Air 11/23/19 20:42 61 169/76 11/23/19 20:00 97.5 61 20 169/76 (107) 95 11/23/19 20:00 61 11/23/19 16:00 61 Intake and Output 11/23/19 11/24/19 19:00 07:00 Intake Total 360 ml Balance 360 ml Intake Oral 360 ml # Voids 4 Laboratory Tests Test 11/23/19 20:40 POC Whole Blood Glucose Pending Objective HEAD AND NECK: No JVD. LUNGS: Coarse rhonchi. CARDIOVASCULAR: Regular S1 and S2 with no gallop or murmur. ABDOMEN: Soft. EXTREMITIES: No pitting edema. Sean Garcia MD Nov 24, 2019 14:48
[2019-11-24 15:56] VITALS: BP 145/65
[2019-11-24] MEDS ORDERED: ACETAMINOPHEN325 M1 ORAL (16:29)
[2019-11-24] MEDS ORDERED: ASPIRIN-LOW81 MG ORAL (16:33)
[2019-11-24] MEDS ORDERED: INSULIN AS100 UNIT/3 SQ (16:36)
[2019-11-24] MEDS ORDERED: NATEGLINIDE60 MG PO ×3 (16:37→16:49)
[2019-11-24] MEDS ORDERED: OLANZAPINE2.5 MG ORAL (16:40)
[2019-11-24] MEDS ORDERED: JANUVIA100 MG ORAL (16:42)
[2019-11-24] MEDS: OLANZapine 2.5mg tab ORAL SCH (21:00)
--- NOTE | 2019-11-24 23:32 | Psych Consult Progress Note ---
Psychiatry Progress Note Psychiatry Progress Note Subjective pt is the same cogn impairment ' the pt received a cocktail and was more cooperative the pt is easily agitated Medications Current Medications Medications (Trade) Dose Ordered Sig/Jose Route PRN Reason Start Time Stop Time Status Last Admin Dose Admin Acetaminophen (Tylenol) 650 mg Q6H PRN ORAL mod pain/temp 101 or greater 11/19/19 21:45 12/19/19 21:44 Aspirin (ASA) 81 mg DAILY ORAL 11/20/19 09:00 01/04/20 08:59 11/22/19 09:14 Atorvastatin Calcium (Lipitor) 10 mg DAILY ORAL 11/21/19 09:00 02/19/20 08:59 11/22/19 09:14 Dextrose (Dextrose 50%) 25 ml Q30M PRN IV Hypoglycemia 11/20/19 20:00 02/18/20 19:59 Dextrose (Dextrose 50%) 50 ml Q30M PRN IV Hypoglycemia 11/20/19 20:00 02/18/20 19:59 Enoxaparin Sodium (Lovenox) 40 mg DAILY SUBQ 11/21/19 09:00 02/19/20 08:59 11/22/19 09:16 Haloperidol Lactate (Haldol) 5 mg Q6H PRN IM Agitation 11/22/19 00:45 01/06/20 00:44 11/24/19 14:22 Insulin Aspart (NovoLOG) BEFORE MEALS AND HS SUBQ 11/20/19 21:00 02/18/20 20:59 11/23/19 20:43 Metoprolol Tartrate (Lopressor) 12.5 mg EVERY 12 HOURS ORAL 11/20/19 21:00 02/18/20 20:59 11/23/19 20:42 Nateglinide (Starlix) 60 mg TIAC ORAL 11/21/19 16:30 12/21/19 16:29 11/24/19 17:23 Olanzapine (ZyPREXA) 2.5 mg BEDTIME ORAL 11/22/19 21:00 01/06/20 20:59 11/23/19 20:41 Sitagliptin Phosphate (Januvia) 100 mg ACBREAKFAST ORAL 11/21/19 15:00 12/21/19 14:59 11/23/19 06:05 Neurological/Psychiatric: Reports: anxiety, depressed, emotional problems Allergies: Coded Allergies: No Known Allergies (Unverified , 11/19/19) Objective Data Height (Feet): 5 Height (Inches): 10.00 Weight (Pounds): 136 General Appearance: no apparent distress Additional Comments: awake, disoriented. Mood is anxious. Affect is blunted. Thought process is concrete. Thought content, no suicidal or homicidal ideation. Cognition is impaired. Insight and judgment impaired. Assessment/Plan [place] I: ASSESSMENT: AXIS I: Vascular dementia. Rule out acute encephalopathy. AXIS II: Deferred. AXIS III: COVID-19. AXIS IV: Low. AXIS V: 20. PLAN: 1. The patient lacks capacity to refuse procedures and labs. 2. Suggestive the Haldol prior to the lab draw and place the patient on bilateral restraints. Status: unchanged Status Narrative ASSESSMENT: AXIS I: Vascular dementia. Rule out acute encephalopathy. AXIS II: Deferred. AXIS III: COVID-19. AXIS IV: Low. AXIS V: 20. PLAN: 1. The patient lacks capacity to refuse procedures and labs. 2. Suggestive the Haldol prior to the lab draw and place the patient on bilateral restraints. Assessment/Plan: ASSESSMENT: AXIS I: Vascular dementia. Rule out acute encephalopathy. AXIS II: Deferred. AXIS III: COVID-19. AXIS IV: Low. AXIS V: 20. PLAN: 1. The patient lacks capacity to refuse procedures and labs. 2. Suggestive the Haldol prior to the lab draw and place the patient on bilateral restraints. Reno Gooden MD Nov 24, 2019 23:32
[2019-11-25] MEDS: NovoLOG Insulin Flexpen SUBQ SCH ×4 (06:09→20:50)
[2019-11-25] MEDS: Nateglinide 60mg tab ORAL SCH ×3 (06:09→16:30)
--- NOTE | 2019-11-25 06:58 | General Progress Note ---
Assessment/Plan Problem List: (1) Diabetes mellitus ICD Codes: E11.9 - Type 2 diabetes mellitus without complications SNOMED: 42479950 (2) NSTEMI (non-ST elevated myocardial infarction) ICD Codes: I21.4 - Non-ST elevation (NSTEMI) myocardial infarction SNOMED: 38651966 (3) Hypoglycemia ICD Codes: E16.2 - Hypoglycemia, unspecified SNOMED: 674833494 (4) COVID-19 ICD Codes: U07.1 - COVID-19 SNOMED: 320346016 (5) Pneumonia ICD Codes: J18.9 - Pneumonia, unspecified organism SNOMED: 888850435 (6) UTI (urinary tract infection) ICD Codes: N39.0 - Urinary tract infection, site not specified SNOMED: 44078724 Status: unchanged Assessment/Plan: continue Januvia 100 mg daily continue Starlix 60 mg ac tid continue Novolog sliding scale ac / hs hypoglycemia protocol in order Subjective ROS Limited/Unobtainable: Yes Allergies: Coded Allergies: No Known Allergies (Unverified , 11/19/19) Subjective events noted interval notes reviewed refusing meds and glucose check episodes of agitation Item Value Date Time Bedside Blood Glucose 383 mg/dl H 11/24/19 1630 Bedside Blood Glucose 383 mg/dl H 11/24/19 1119 Objective Last 24 Hour Vital Signs Date Time Temp Pulse Resp B/P (MAP) Pulse Ox O2 Delivery O2 Flow Rate FiO2 11/24/19 21:00 Room Air 11/24/19 16:00 66 11/24/19 15:56 97.9 61 18 145/65 (91) 98 11/24/19 12:00 66 11/24/19 11:59 145/100 (115) 11/24/19 09:00 55 169/80 11/24/19 09:00 Room Air 11/24/19 08:00 55 11/24/19 08:00 98.2 60 20 169/80 (109) 97 Intake and Output 11/24/19 11/25/19 19:00 07:00 Intake Total 120 ml Balance 120 ml Intake Oral 120 ml # Voids 3 2 Height (Feet): 5 Height (Inches): 10.00 Weight (Pounds): 135 Objective Current Medications Medications (Trade) Dose Ordered Sig/Jose Route PRN Reason Start Time Stop Time Status Last Admin Dose Admin Acetaminophen (Tylenol) 650 mg Q6H PRN ORAL mod pain/temp 101 or greater 11/19/19 21:45 12/19/19 21:44 Aspirin (ASA) 81 mg DAILY ORAL 11/20/19 09:00 01/04/20 08:59 11/22/19 09:14 Atorvastatin Calcium (Lipitor) 10 mg DAILY ORAL 11/21/19 09:00 02/19/20 08:59 11/22/19 09:14 Ceftriaxone Sodium 1 gm/ Dextrose 55 ml @ 110 mls/hr Q24H IVPB 11/20/19 09:00 11/27/19 08:59 11/21/19 09:01 Dextrose (Dextrose 50%) 25 ml Q30M PRN IV Hypoglycemia 11/20/19 20:00 02/18/20 19:59 Dextrose (Dextrose 50%) 50 ml NEEDED PRN IV for blood sugar <70 11/19/19 22:15 02/17/20 22:14 Dextrose (Dextrose 50%) 50 ml Q30M PRN IV Hypoglycemia 11/20/19 20:00 02/18/20 19:59 Enoxaparin Sodium (Lovenox) 40 mg DAILY SUBQ 11/21/19 09:00 02/19/20 08:59 11/22/19 09:16 Haloperidol Lactate (Haldol) 5 mg Q6H PRN IM Agitation 11/22/19 00:45 01/06/20 00:44 Insulin Aspart (NovoLOG) BEFORE MEALS AND HS SUBQ 11/20/19 21:00 02/18/20 20:59 11/22/19 21:44 Metoprolol Tartrate (Lopressor) 12.5 mg EVERY 12 HOURS ORAL 11/20/19 21:00 02/18/20 20:59 11/22/19 21:41 Nateglinide (Starlix) 60 mg TIAC ORAL 11/21/19 16:30 12/21/19 16:29 11/23/19 06:05 Olanzapine (ZyPREXA) 2.5 mg BEDTIME ORAL 11/22/19 21:00 01/06/20 20:59 11/22/19 21:40 Sitagliptin Phosphate (Januvia) 100 mg ACBREAKFAST ORAL 11/21/19 15:00 12/21/19 14:59 11/23/19 06:05 Vinicius Gunter MD Nov 25, 2019 06:58
[2019-11-25] MEDS: Metoprolol Tartrate 12.5mg TAB ORAL SCH ×2 (09:00→20:49)
[2019-11-25] MEDS: Enoxaparin 40mg Inj SUBQ SCH (09:00)
[2019-11-25] MEDS: Aspirin Baby 81mg ORAL SCH (09:00)
--- NOTE | 2019-11-25 10:47 | Pulmonology Progress Note ---
Subjective ROS Limited/Unobtainable: Yes Interval Events: None new Constitutional: Denies: fever HEENT: Repors: no symptoms Respiratory: Reports: dry cough Cardiovascular: Reports: no symptoms Gastrointestinal/Abdominal: Reports: no symptoms Psychiatric: Reports: other - refuses labs Allergies: Coded Allergies: No Known Allergies (Unverified , 11/19/19) All Systems: reviewed and negative except above Objective Last 24 Hour Vital Signs Date Time Temp Pulse Resp B/P (MAP) Pulse Ox O2 Delivery O2 Flow Rate FiO2 11/25/19 09:00 Room Air 11/24/19 21:00 Room Air 11/24/19 16:00 66 11/24/19 15:56 97.9 61 18 145/65 (91) 98 11/24/19 12:00 66 11/24/19 11:59 145/100 (115) Intake and Output 11/24/19 11/25/19 19:00 07:00 Intake Total 120 ml Balance 120 ml Intake Oral 120 ml # Voids 3 2 General Appearance: no acute distress HEENT: normocephalic Respiratory: chest wall non-tender, lungs clear Cardiovascular: normal peripheral pulses, normal rate Abdomen: normal bowel sounds Current Medications Medications (Trade) Dose Ordered Sig/Jose Route PRN Reason Start Time Stop Time Status Last Admin Dose Admin Acetaminophen (Tylenol) 650 mg Q6H PRN ORAL mod pain/temp 101 or greater 11/19/19 21:45 12/19/19 21:44 Aspirin (ASA) 81 mg DAILY ORAL 11/20/19 09:00 01/04/20 08:59 11/22/19 09:14 Atorvastatin Calcium (Lipitor) 10 mg DAILY ORAL 11/21/19 09:00 02/19/20 08:59 11/22/19 09:14 Dextrose (Dextrose 50%) 25 ml Q30M PRN IV Hypoglycemia 11/20/19 20:00 02/18/20 19:59 Dextrose (Dextrose 50%) 50 ml Q30M PRN IV Hypoglycemia 11/20/19 20:00 02/18/20 19:59 Enoxaparin Sodium (Lovenox) 40 mg DAILY SUBQ 11/21/19 09:00 02/19/20 08:59 11/22/19 09:16 Haloperidol Lactate (Haldol) 5 mg Q6H PRN IM Agitation 11/22/19 00:45 01/06/20 00:44 11/24/19 14:22 Insulin Aspart (NovoLOG) BEFORE MEALS AND HS SUBQ 11/20/19 21:00 02/18/20 20:59 11/23/19 20:43 Metoprolol Tartrate (Lopressor) 12.5 mg EVERY 12 HOURS ORAL 11/20/19 21:00 02/18/20 20:59 11/23/19 20:42 Nateglinide (Starlix) 60 mg TIAC ORAL 11/21/19 16:30 12/21/19 16:29 11/24/19 17:23 Olanzapine (ZyPREXA) 2.5 mg BEDTIME ORAL 11/22/19 21:00 01/06/20 20:59 11/23/19 20:41 Sitagliptin Phosphate (Januvia) 100 mg ACBREAKFAST ORAL 11/21/19 15:00 12/21/19 14:59 11/23/19 06:05 Assessment/Plan Assessment/Plan IMPRESSION: 1. COVID19 pneumonia. 2. Hypoglycemia. 3. Diabetes mellitus. 4. Hypertension. 5. CVA. DISCUSSION: Continue medications I will follow carefully. Saturating well on RA Dc planning Cesar Hancock Omar Syed MD Nov 25, 2019 10:47
--- NOTE | 2019-11-25 11:32 | Infectious Diseases Prog Note ---
Assessment/Plan Assessment/Plan IMPRESSION: COVID-19 disease Diabetes mellitus with hypoglycemia, Hypertension, Anemia, elevation in troponin. RECOMMENDATION: Agree with discharge Observe off of antibiotic Subjective ROS Limited/Unobtainable: Yes Constitutional: Reports: no symptoms Respiratory: Reports: no symptoms Psychiatric: Reports: other - refuses medications Allergies: Coded Allergies: No Known Allergies (Unverified , 11/19/19) Objective Last 24 Hour Vital Signs Date Time Temp Pulse Resp B/P (MAP) Pulse Ox O2 Delivery O2 Flow Rate FiO2 11/25/19 09:00 Room Air 11/24/19 21:00 Room Air 11/24/19 16:00 66 11/24/19 15:56 97.9 61 18 145/65 (91) 98 11/24/19 12:00 66 11/24/19 11:59 145/100 (115) Height (Feet): 5 Height (Inches): 10.00 Weight (Pounds): 135 General Appearance: no acute distress HEENT: mucous membranes moist Respiratory/Chest: no respiratory distress Cardiovascular: normal rate Abdomen: soft, non tender Extremities: no edema Neurologic/Psychiatric: alert, responsive Current Medications Medications (Trade) Dose Ordered Sig/Jose Route PRN Reason Start Time Stop Time Status Last Admin Dose Admin Acetaminophen (Tylenol) 650 mg Q6H PRN ORAL mod pain/temp 101 or greater 11/19/19 21:45 12/19/19 21:44 Aspirin (ASA) 81 mg DAILY ORAL 11/20/19 09:00 01/04/20 08:59 11/22/19 09:14 Atorvastatin Calcium (Lipitor) 10 mg DAILY ORAL 11/21/19 09:00 02/19/20 08:59 11/22/19 09:14 Dextrose (Dextrose 50%) 25 ml Q30M PRN IV Hypoglycemia 11/20/19 20:00 02/18/20 19:59 Dextrose (Dextrose 50%) 50 ml Q30M PRN IV Hypoglycemia 11/20/19 20:00 02/18/20 19:59 Enoxaparin Sodium (Lovenox) 40 mg DAILY SUBQ 11/21/19 09:00 02/19/20 08:59 11/22/19 09:16 Haloperidol Lactate (Haldol) 5 mg Q6H PRN IM Agitation 11/22/19 00:45 01/06/20 00:44 11/24/19 14:22 Insulin Aspart (NovoLOG) BEFORE MEALS AND HS SUBQ 11/20/19 21:00 02/18/20 20:59 11/23/19 20:43 Metoprolol Tartrate (Lopressor) 12.5 mg EVERY 12 HOURS ORAL 11/20/19 21:00 02/18/20 20:59 11/23/19 20:42 Nateglinide (Starlix) 60 mg TIAC ORAL 11/21/19 16:30 12/21/19 16:29 11/24/19 17:23 Olanzapine (ZyPREXA) 2.5 mg BEDTIME ORAL 11/22/19 21:00 01/06/20 20:59 11/23/19 20:41 Sitagliptin Phosphate (Januvia) 100 mg ACBREAKFAST ORAL 11/21/19 15:00 12/21/19 14:59 11/23/19 06:05 Josh Contreras MD Nov 25, 2019 11:32
--- NOTE | 2019-11-25 12:53 | Hematology/Onc Progress Note ---
Assessment/Plan Assessment/Plan Assessment/Plan # Anemia of chronic disease due to underlying chronic medical issues, multifactorial v Gi bleed --> Anemia workup has been ordered, rule out gi bleed --> No evidence of hemolysis is noted, peripheral smear has been reviewed. --> Hgb goal >7. Transfuse prn. --> Epogen or iron at this time is not particularly indicated --> Medications have been reviewed --> low threshold for gi evaluation in case has occult + --> hgb 9.2 # COVID 19 pna --> as per id --> initially was on abx --> now off them # Troponin elevation 0.2 and 0.145 and inferolateral ischemia. Echo ef 65% --> On aspirin, Metoprolol 12.5 bid and Lipitor 10 daily --> Stress test after Covid negative --> per Dr. Garcia # Uncontrolled diabetes. # Hypertension, On Lopressor # History of CVA. # Dvt ppx lovenox sq The timing of this note does not necessarily reflect the time of the patient was seen. Greatly appreciate consultation. Subjective Constitutional: Denies: no symptoms, chills, fever, malaise, weakness, other HEENT: Denies: no symptoms, eye pain, blurred vision, tearing, double vision, ear pain, ear discharge, nose pain, nose congestion, throat pain, throat swelling, mouth pain, mouth swelling, other Cardiovascular: Denies: no symptoms, chest pain, edema, irregular heart rate, lightheadedness, palpitations, syncope, other Respiratory: Denies: no symptoms, cough, shortness of breath, SOB with excertion, SOB at rest, sputum, wheezing, other Genitourinary: Denies: no symptoms, burning, discharge, frequency, flank pain, hematuria, incontinence, pain, urgency, other Endocrine: Denies: no symptoms, excessive sweating, flushing, intolerance to cold, intolerance to heat, increased hunger, increased thirst, increased urine, unexplained weight gain, unexplained weight loss, other Hematologic/Lymphatic: Denies: no symptoms, anemia, easy bleeding, easy bruising, adenopathy, other Allergies: Coded Allergies: No Known Allergies (Unverified , 11/19/19) Subjective 11/24 labs are noted, off abx for covid 19, meds reivewed, MED RECON completed Objective Objective Current Medications Medications (Trade) Dose Ordered Sig/Jose Route PRN Reason Start Time Stop Time Status Last Admin Dose Admin Acetaminophen (Tylenol) 650 mg Q6H PRN ORAL mod pain/temp 101 or greater 11/19/19 21:45 12/19/19 21:44 Aspirin (ASA) 81 mg DAILY ORAL 11/20/19 09:00 01/04/20 08:59 11/22/19 09:14 Atorvastatin Calcium (Lipitor) 10 mg DAILY ORAL 11/21/19 09:00 02/19/20 08:59 11/22/19 09:14 Dextrose (Dextrose 50%) 25 ml Q30M PRN IV Hypoglycemia 11/20/19 20:00 02/18/20 19:59 Dextrose (Dextrose 50%) 50 ml Q30M PRN IV Hypoglycemia 11/20/19 20:00 02/18/20 19:59 Enoxaparin Sodium (Lovenox) 40 mg DAILY SUBQ 11/21/19 09:00 02/19/20 08:59 11/22/19 09:16 Haloperidol Lactate (Haldol) 5 mg Q6H PRN IM Agitation 11/22/19 00:45 01/06/20 00:44 11/24/19 14:22 Insulin Aspart (NovoLOG) BEFORE MEALS AND HS SUBQ 11/20/19 21:00 02/18/20 20:59 11/23/19 20:43 Metoprolol Tartrate (Lopressor) 12.5 mg EVERY 12 HOURS ORAL 11/20/19 21:00 02/18/20 20:59 11/23/19 20:42 Nateglinide (Starlix) 60 mg TIAC ORAL 11/21/19 16:30 12/21/19 16:29 11/24/19 17:23 Olanzapine (ZyPREXA) 2.5 mg BEDTIME ORAL 11/22/19 21:00 01/06/20 20:59 11/23/19 20:41 Sitagliptin Phosphate (Januvia) 100 mg ACBREAKFAST ORAL 11/21/19 15:00 12/21/19 14:59 11/23/19 06:05 Last 24 Hour Vital Signs Date Time Temp Pulse Resp B/P (MAP) Pulse Ox O2 Delivery O2 Flow Rate FiO2 11/25/19 09:00 Room Air 11/24/19 21:00 Room Air 11/24/19 16:00 66 11/24/19 15:56 97.9 61 18 145/65 (91) 98 11/24/19 12:00 66 11/24/19 11:59 145/100 (115) 11/24/19 09:00 55 169/80 11/24/19 09:00 Room Air 11/24/19 08:00 55 11/24/19 08:00 98.2 60 20 169/80 (109) 97 11/24/19 04:00 64 11/24/19 04:00 98.0 62 19 168/78 (108) 96 11/24/19 00:00 97.9 59 19 155/69 (97) 96 11/23/19 21:00 Room Air 11/23/19 20:42 61 169/76 11/23/19 20:00 97.5 61 20 169/76 (107) 95 11/23/19 20:00 61 11/23/19 16:00 61 Intake and Output 11/24/19 11/25/19 19:00 07:00 Intake Total 120 ml Balance 120 ml Intake Oral 120 ml # Voids 3 2 Labs Test 11/22/19 16:46 11/23/19 02:55 11/23/19 20:40 POC Whole Blood Glucose 325 MG/DL (74-106) White Blood Count 8.9 K/UL (4.8-10.8) Red Blood Count 3.26 M/UL (4.70-6.10) Hemoglobin 9.3 G/DL (14.2-18.0) Hematocrit 28.1 % (42.0-52.0) Mean Corpuscular Volume 86 FL (80-99) Mean Corpuscular Hemoglobin 28.4 PG (27.0-31.0) Mean Corpuscular Hemoglobin Concent 32.9 G/DL (32.0-36.0) Red Cell Distribution Width 11.8 % (11.6-14.8) Platelet Count 310 K/UL (150-450) Mean Platelet Volume 6.6 FL (6.5-10.1) Neutrophils (%) (Auto) 70.7 % (45.0-75.0) Lymphocytes (%) (Auto) 18.6 % (20.0-45.0) Monocytes (%) (Auto) 10.1 % (1.0-10.0) Eosinophils (%) (Auto) 0.2 % (0.0-3.0) Basophils (%) (Auto) 0.5 % (0.0-2.0) Sodium Level 136 MMOL/L (136-145) Potassium Level 4.1 MMOL/L (3.5-5.1) Chloride Level 102 MMOL/L (98-107) Carbon Dioxide Level 27 MMOL/L (21-32) Anion Gap 7 mmol/L (5-15) Blood Urea Nitrogen 21 mg/dL (7-18) Creatinine 1.1 MG/DL (0.55-1.30) Estimat Glomerular Filtration Rate > 60 mL/min (>60) Glucose Level 241 MG/DL (74-106) Uric Acid 4.2 MG/DL (2.6-7.2) Calcium Level 8.9 MG/DL (8.5-10.1) Phosphorus Level 2.5 MG/DL (2.5-4.9) Magnesium Level 1.6 MG/DL (1.8-2.4) Total Bilirubin 0.6 MG/DL (0.2-1.0) Aspartate Amino Transf (AST/SGOT) 19 U/L (15-37) Alanine Aminotransferase (ALT/SGPT) 29 U/L (12-78) Alkaline Phosphatase 55 U/L (46-116) Troponin I 0.145 ng/mL (0.000-0.056) C-Reactive Protein, Quantitative 3.7 mg/dL (0.00-0.90) Pro-B-Type Natriuretic Peptide 123 pg/mL (0-125) Total Protein 6.6 G/DL (6.4-8.2) Albumin 2.7 G/DL (3.4-5.0) Globulin 3.9 g/dL Albumin/Globulin Ratio 0.7 (1.0-2.7) Height (Feet): 5 Height (Inches): 10.00 Weight (Pounds): 135 Objective Physical Exam: Vitals: reviewed General: NAD HEENT: nc, at Neck: supple Chest: clear breath sounds bilaterally Cardiovascular: RRR, no s3, s4 Abdomen: soft, nontender, nd Extremities: no cce, normal range of motion Neuro: alert and oriented Alexander Mcnair MD Nov 25, 2019 12:53
--- NOTE | 2019-11-25 13:16 | General Progress Note ---
Assessment/Plan Problem List: (1) UTI (urinary tract infection) ICD Codes: N39.0 - Urinary tract infection, site not specified SNOMED: 83556278 (2) Pneumonia ICD Codes: J18.9 - Pneumonia, unspecified organism SNOMED: 275550243 (3) COVID-19 ICD Codes: U07.1 - COVID-19 SNOMED: 089033862 (4) Hypoglycemia ICD Codes: E16.2 - Hypoglycemia, unspecified SNOMED: 100945250 (5) NSTEMI (non-ST elevated myocardial infarction) ICD Codes: I21.4 - Non-ST elevation (NSTEMI) myocardial infarction SNOMED: 99164185 Status: unchanged Assessment/Plan: abx pt diet bs control cbc bmp am Subjective Constitutional: Reports: weakness Allergies: Coded Allergies: No Known Allergies (Unverified , 11/19/19) All Systems: reviewed and negative except above Subjective calm in bed Objective Last 24 Hour Vital Signs Date Time Temp Pulse Resp B/P (MAP) Pulse Ox O2 Delivery O2 Flow Rate FiO2 11/25/19 09:00 Room Air 11/24/19 21:00 Room Air 11/24/19 16:00 66 11/24/19 15:56 97.9 61 18 145/65 (91) 98 Intake and Output 11/24/19 11/25/19 19:00 07:00 Intake Total 120 ml Balance 120 ml Intake Oral 120 ml # Voids 3 2 Height (Feet): 5 Height (Inches): 10.00 Weight (Pounds): 135 General Appearance: lethargic EENT: normal ENT inspection Neck: normal alignment Cardiovascular: normal rate, regular rhythm Respiratory/Chest: no respiratory distress, no accessory muscle use Extremities: normal range of motion Skin: normal pigmentation Benjamín Caputo DO Nov 25, 2019 13:16
--- NOTE | 2019-11-25 14:00 | Nephrology Progress Note ---
Assessment/Plan Problem List: (1) Electrolyte imbalance Assessment: Hyponatremia (2) Diabetes mellitus (3) Hypoglycemia (4) COVID-19 (5) Pneumonia (6) UTI (urinary tract infection) (7) NSTEMI (non-ST elevated myocardial infarction) Assessment Hyponatremia likely depletional Diabetes mellitus, with periodic hypoglycemia Non-STEMI COVID-19, pneumonia UTI Hypertension Previous CVA Plan November 24: No labs done again today. Clinically stable. November 23: No labs done today. Clinically stable. Continue per consultants. November 22: Labs reviewed. Renal parameters stable. Magnesium slightly low. IV magnesium ordered. Continue per consultants. November 21: No labs available. Physical examination and vital signs are all okay. Psychiatric evaluation noted and appreciated. Patient lacks capacity to make decisions and refuse labs. Patient been refusing blood draw and taking medication today according to the RN Keep the blood pressure and blood sugar in check as possible Slow hydrate Monitor electrolytes Per consultants Subjective ROS Limited/Unobtainable: No Constitutional: Reports: malaise Objective Objective Last 24 Hour Vital Signs Date Time Temp Pulse Resp B/P (MAP) Pulse Ox O2 Delivery O2 Flow Rate FiO2 11/25/19 09:00 Room Air 11/24/19 21:00 Room Air 11/24/19 16:00 66 11/24/19 15:56 97.9 61 18 145/65 (91) 98 Intake and Output 11/24/19 11/25/19 19:00 07:00 Intake Total 120 ml Balance 120 ml Intake Oral 120 ml # Voids 3 2 No labs drawn today Height (Feet): 5 Height (Inches): 10.00 Weight (Pounds): 135 General Appearance: no apparent distress Objective Unchanged Ilya López MD Nov 25, 2019 14:00
--- NOTE | 2019-11-25 15:57 | Cardiac Electrophysiology PN ---
Assessment/Plan Assessment/Plan 1. Troponin elevation 0.2 and 0.145 and inferolateral ischemia. Denies chest pain. On aspirin, Metoprolol 12.5 bid and Lipitor 10 daily. Echo EF 65% Stress test after Covid negative if pt agrees as is very noncompliant 2. Positive COVID. 3. Uncontrolled diabetes. 4. Hypertension, On Lopressor 5. History of CVA. 6. Noncompliant even to tele. DC telemetry Subjective Subjective In isolation for Covid. .No events. Refusing meds and tele. Objective Last 24 Hour Vital Signs Date Time Temp Pulse Resp B/P (MAP) Pulse Ox O2 Delivery O2 Flow Rate FiO2 11/25/19 09:00 Room Air 11/24/19 21:00 Room Air 11/24/19 16:00 66 11/24/19 15:56 97.9 61 18 145/65 (91) 98 Intake and Output 11/24/19 11/25/19 19:00 07:00 Intake Total 120 ml Balance 120 ml Intake Oral 120 ml # Voids 3 2 Objective HEAD AND NECK: No JVD. LUNGS: Coarse rhonchi. CARDIOVASCULAR: Regular S1 and S2 with no gallop or murmur. ABDOMEN: Soft. EXTREMITIES: No pitting edema. Sean Garcia MD Nov 25, 2019 15:57
[2019-11-25 20:00] VITALS: BP 170/70
[2019-11-25] MEDS: OLANZapine 2.5mg tab ORAL SCH (20:49)
--- NOTE | 2019-11-25 22:29 | Psych Consult Progress Note ---
Psychiatry Progress Note Psychiatry Progress Note Subjective the pt is easily agitated Medications Current Medications Medications (Trade) Dose Ordered Sig/Jose Route PRN Reason Start Time Stop Time Status Last Admin Dose Admin Acetaminophen (Tylenol) 650 mg Q6H PRN ORAL mod pain/temp 101 or greater 11/19/19 21:45 12/19/19 21:44 Aspirin (ASA) 81 mg DAILY ORAL 11/20/19 09:00 01/04/20 08:59 11/22/19 09:14 Atorvastatin Calcium (Lipitor) 10 mg DAILY ORAL 11/21/19 09:00 02/19/20 08:59 11/22/19 09:14 Dextrose (Dextrose 50%) 25 ml Q30M PRN IV Hypoglycemia 11/20/19 20:00 02/18/20 19:59 Dextrose (Dextrose 50%) 50 ml Q30M PRN IV Hypoglycemia 11/20/19 20:00 02/18/20 19:59 Enoxaparin Sodium (Lovenox) 40 mg DAILY SUBQ 11/21/19 09:00 02/19/20 08:59 11/22/19 09:16 Haloperidol Lactate (Haldol) 5 mg Q6H PRN IM Agitation 11/22/19 00:45 01/06/20 00:44 11/24/19 14:22 Insulin Aspart (NovoLOG) BEFORE MEALS AND HS SUBQ 11/20/19 21:00 02/18/20 20:59 11/23/19 20:43 Metoprolol Tartrate (Lopressor) 12.5 mg EVERY 12 HOURS ORAL 11/20/19 21:00 02/18/20 20:59 11/25/19 20:49 Nateglinide (Starlix) 60 mg TIAC ORAL 11/21/19 16:30 12/21/19 16:29 11/24/19 17:23 Olanzapine (ZyPREXA) 2.5 mg BEDTIME ORAL 11/22/19 21:00 01/06/20 20:59 11/25/19 20:49 Sitagliptin Phosphate (Januvia) 100 mg ACBREAKFAST ORAL 11/21/19 15:00 12/21/19 14:59 11/23/19 06:05 Neurological/Psychiatric: Reports: anxiety, depressed, emotional problems Allergies: Coded Allergies: No Known Allergies (Unverified , 11/19/19) Objective Data Height (Feet): 5 Height (Inches): 10.00 Weight (Pounds): 135 General Appearance: WD/WN, no apparent distress, alert, confused Additional Comments: awake, disoriented. Mood is anxious. Affect is blunted. Thought process is concrete. Thought content, no suicidal or homicidal ideation. Cognition is impaired. Insight and judgment impaired. Assessment/Plan [place] I: ASSESSMENT: AXIS I: Vascular dementia. Rule out acute encephalopathy. AXIS II: Deferred. AXIS III: COVID-19. AXIS IV: Low. AXIS V: 20. PLAN: 1. The patient lacks capacity to refuse procedures and labs. 2. Suggestive the Haldol prior to the lab draw and place the patient on bilateral restraints. Status: unchanged Status Narrative ASSESSMENT: AXIS I: Vascular dementia. Rule out acute encephalopathy. AXIS II: Deferred. AXIS III: COVID-19. AXIS IV: Low. AXIS V: 20. PLAN: 1. The patient lacks capacity to refuse procedures and labs. 2. Suggestive the Haldol prior to the lab draw and place the patient on bilateral restraints. Assessment/Plan: ASSESSMENT: AXIS I: Vascular dementia. Rule out acute encephalopathy. AXIS II: Deferred. AXIS III: COVID-19. AXIS IV: Low. AXIS V: 20. PLAN: 1. The patient lacks capacity to refuse procedures and labs. 2. Suggestive the Haldol prior to the lab draw and place the patient on bilateral restraints. Reno Gooden MD Nov 25, 2019 22:29
[2019-11-26 04:00] VITALS: BP 145/72
[2019-11-26] MEDS: Nateglinide 60mg tab ORAL SCH ×3 (06:30→16:23)
[2019-11-26] MEDS: NovoLOG Insulin Flexpen SUBQ SCH ×4 (06:30→21:00)
[2019-11-26] MEDS ORDERED: Haloperidol 5mg/ml Inj IM PRN (06:45)
--- NOTE | 2019-11-26 08:20 | Cardiac Electrophysiology PN ---
Assessment/Plan Assessment/Plan 1. Troponin elevation 0.2 and 0.145 and inferolateral ischemia. Denies chest pain. On aspirin, Metoprolol 12.5 bid and Lipitor 10 daily if he takes them. Echo EF 65% Stress test after Covid negative if pt agrees as is very noncompliant 2. Positive COVID. 3. Uncontrolled diabetes. 4. Hypertension, On Lopressor 5. History of CVA. 6. Noncompliant even to tele. Off telemetry TAB RN Subjective Subjective In isolation for Covid. .No events. Refusing meds, Labs and tele.Transferred to Med [facility] Objective Last 24 Hour Vital Signs Date Time Temp Pulse Resp B/P (MAP) Pulse Ox O2 Delivery O2 Flow Rate FiO2 11/26/19 04:00 96.8 66 18 145/72 (96) 98 11/25/19 21:00 Room Air 11/25/19 20:49 72 170/70 11/25/19 20:00 97.1 72 17 170/70 (103) 96 11/25/19 09:00 Room Air Intake and Output 11/25/19 11/26/19 19:00 07:00 Intake Total 240 ml Balance 240 ml Intake Oral 240 ml # Voids 4 3 # Bowel Movements 1 Objective HEAD AND NECK: No JVD. LUNGS: Coarse rhonchi. CARDIOVASCULAR: Regular S1 and S2 with no gallop or murmur. ABDOMEN: Soft. EXTREMITIES: No pitting edema. Sean Garcia MD Nov 26, 2019 08:20
--- NOTE | 2019-11-26 08:27 | Pulmonology Progress Note ---
Subjective ROS Limited/Unobtainable: No Interval Events: None new Constitutional: Reports: no symptoms HEENT: Repors: no symptoms Respiratory: Reports: dry cough Cardiovascular: Reports: no symptoms Gastrointestinal/Abdominal: Reports: no symptoms Psychiatric: Reports: other - refuses medications Allergies: Coded Allergies: No Known Allergies (Unverified , 11/19/19) All Systems: reviewed and negative except above Objective Last 24 Hour Vital Signs Date Time Temp Pulse Resp B/P (MAP) Pulse Ox O2 Delivery O2 Flow Rate FiO2 11/26/19 04:00 96.8 66 18 145/72 (96) 98 11/25/19 21:00 Room Air 11/25/19 20:49 72 170/70 11/25/19 20:00 97.1 72 17 170/70 (103) 96 11/25/19 09:00 Room Air Intake and Output 11/25/19 11/26/19 19:00 07:00 Intake Total 240 ml Balance 240 ml Intake Oral 240 ml # Voids 4 3 # Bowel Movements 1 General Appearance: no acute distress HEENT: normocephalic Respiratory: chest wall non-tender, lungs clear Cardiovascular: normal peripheral pulses, normal rate Abdomen: normal bowel sounds Current Medications Medications (Trade) Dose Ordered Sig/Jose Route PRN Reason Start Time Stop Time Status Last Admin Dose Admin Acetaminophen (Tylenol) 650 mg Q6H PRN ORAL mod pain/temp 101 or greater 11/26/19 05:18 12/19/19 05:17 Aspirin (ASA) 81 mg DAILY ORAL 11/26/19 09:00 01/04/20 08:59 Atorvastatin Calcium (Lipitor) 10 mg DAILY ORAL 11/26/19 09:00 02/19/20 08:59 Dextrose (Dextrose 50%) 25 ml Q30M PRN IV Hypoglycemia 11/26/19 05:30 02/18/20 19:59 Dextrose (Dextrose 50%) 50 ml Q30M PRN IV Hypoglycemia 11/26/19 05:30 02/18/20 19:59 Enoxaparin Sodium (Lovenox) 40 mg DAILY SUBQ 11/26/19 09:00 02/19/20 08:59 Haloperidol Lactate (Haldol) 5 mg Q6H PRN IM Agitation 11/26/19 06:45 01/06/20 00:44 Insulin Aspart (NovoLOG) BEFORE MEALS AND HS SUBQ 11/26/19 06:30 02/18/20 20:59 Metoprolol Tartrate (Lopressor) 12.5 mg EVERY 12 HOURS ORAL 11/26/19 09:00 02/18/20 20:59 Nateglinide (Starlix) 60 mg TIAC ORAL 11/26/19 06:30 12/21/19 16:29 Olanzapine (ZyPREXA) 2.5 mg BEDTIME ORAL 11/26/19 21:00 01/06/20 20:59 Sitagliptin Phosphate (Januvia) 100 mg ACBREAKFAST ORAL 11/26/19 06:30 12/21/19 14:59 Assessment/Plan Assessment/Plan IMPRESSION: 1. COVID19 pneumonia. 2. Hypoglycemia. 3. Diabetes mellitus. 4. Hypertension. 5. CVA. DISCUSSION: Continue medications I will follow carefully. Saturating well on RA Dc planning Cesar Hancock Omar Syed MD Nov 26, 2019 08:27
[2019-11-26] MEDS: Aspirin Baby 81mg ORAL SCH (09:00)
[2019-11-26] MEDS: Metoprolol Tartrate 12.5mg TAB ORAL SCH ×2 (09:00→21:00)
[2019-11-26] MEDS: Enoxaparin 40mg Inj SUBQ SCH (09:00)
--- NOTE | 2019-11-26 09:51 | General Progress Note ---
Assessment/Plan Problem List: (1) UTI (urinary tract infection) ICD Codes: N39.0 - Urinary tract infection, site not specified SNOMED: 15957731 (2) Pneumonia ICD Codes: J18.9 - Pneumonia, unspecified organism SNOMED: 418539074 (3) COVID-19 ICD Codes: U07.1 - COVID-19 SNOMED: 454510957 (4) Hypoglycemia ICD Codes: E16.2 - Hypoglycemia, unspecified SNOMED: 855873550 (5) NSTEMI (non-ST elevated myocardial infarction) ICD Codes: I21.4 - Non-ST elevation (NSTEMI) myocardial infarction SNOMED: 97175798 Status: unchanged Assessment/Plan: abx pt diet bs control cbc bmp am Subjective Constitutional: Reports: weakness Allergies: Coded Allergies: No Known Allergies (Unverified , 11/19/19) All Systems: reviewed and negative except above Subjective calm in bed Objective Last 24 Hour Vital Signs Date Time Temp Pulse Resp B/P (MAP) Pulse Ox O2 Delivery O2 Flow Rate FiO2 11/26/19 09:00 66 145/72 11/26/19 09:00 Room Air 11/26/19 04:00 96.8 66 18 145/72 (96) 98 11/25/19 21:00 Room Air 11/25/19 20:49 72 170/70 11/25/19 20:00 97.1 72 17 170/70 (103) 96 Intake and Output 11/25/19 11/26/19 19:00 07:00 Intake Total 240 ml Balance 240 ml Intake Oral 240 ml # Voids 4 3 # Bowel Movements 1 Height (Feet): 5 Height (Inches): 10.00 Weight (Pounds): 131 General Appearance: lethargic EENT: normal ENT inspection Neck: normal alignment Cardiovascular: normal rate, regular rhythm Respiratory/Chest: no respiratory distress, no accessory muscle use Extremities: normal inspection Edema: trace edema Benjamín Caputo DO Nov 26, 2019 09:51
--- NOTE | 2019-11-26 10:40 | Nephrology Progress Note ---
Assessment/Plan Problem List: (1) Electrolyte imbalance Assessment: Hyponatremia (2) Diabetes mellitus (3) Hypoglycemia (4) COVID-19 (5) Pneumonia (6) UTI (urinary tract infection) (7) NSTEMI (non-ST elevated myocardial infarction) Assessment Hyponatremia likely depletional Diabetes mellitus, with periodic hypoglycemia Non-STEMI COVID-19, pneumonia UTI Hypertension Previous CVA Plan November 25: Patient refused blood draw today. Clinically stable. November 24: No labs done again today. Clinically stable. November 23: No labs done today. Clinically stable. Continue per consultants. November 22: Labs reviewed. Renal parameters stable. Magnesium slightly low. IV magnesium ordered. Continue per consultants. November 21: No labs available. Physical examination and vital signs are all okay. Psychiatric evaluation noted and appreciated. Patient lacks capacity to make decisions and refuse labs. Patient been refusing blood draw and taking medication today according to the RN Keep the blood pressure and blood sugar in check as possible Slow hydrate Monitor electrolytes Per consultants Subjective ROS Limited/Unobtainable: No Constitutional: Reports: malaise Objective Objective Last 24 Hour Vital Signs Date Time Temp Pulse Resp B/P (MAP) Pulse Ox O2 Delivery O2 Flow Rate FiO2 11/26/19 09:00 66 145/72 11/26/19 09:00 Room Air 11/26/19 04:00 96.8 66 18 145/72 (96) 98 11/25/19 21:00 Room Air 11/25/19 20:49 72 170/70 11/25/19 20:00 97.1 72 17 170/70 (103) 96 Intake and Output 11/25/19 11/26/19 19:00 07:00 Intake Total 240 ml Balance 240 ml Intake Oral 240 ml # Voids 4 3 # Bowel Movements 1 Refused blood draw this morning Height (Feet): 5 Height (Inches): 10.00 Weight (Pounds): 131 General Appearance: no apparent distress Objective Unchanged Ilya López MD Nov 26, 2019 10:40
--- NOTE | 2019-11-26 10:56 | Infectious Diseases Prog Note ---
Assessment/Plan Assessment/Plan IMPRESSION: COVID-19 disease Diabetes mellitus with hypoglycemia, Hypertension, Anemia, elevation in troponin. RECOMMENDATION: Agree with discharge Observe off of antibiotic Subjective ROS Limited/Unobtainable: Yes Constitutional: Denies: fever Allergies: Coded Allergies: No Known Allergies (Unverified , 11/19/19) Objective Last 24 Hour Vital Signs Date Time Temp Pulse Resp B/P (MAP) Pulse Ox O2 Delivery O2 Flow Rate FiO2 11/26/19 09:00 66 145/72 11/26/19 09:00 Room Air 11/26/19 04:00 96.8 66 18 145/72 (96) 98 11/25/19 21:00 Room Air 11/25/19 20:49 72 170/70 11/25/19 20:00 97.1 72 17 170/70 (103) 96 Height (Feet): 5 Height (Inches): 10.00 Weight (Pounds): 131 General Appearance: no acute distress HEENT: mucous membranes moist Respiratory/Chest: no accessory muscle use Cardiovascular: normal rate Abdomen: soft, non tender Extremities: no edema Neurologic/Psychiatric: alert, responsive Current Medications Medications (Trade) Dose Ordered Sig/Jose Route PRN Reason Start Time Stop Time Status Last Admin Dose Admin Acetaminophen (Tylenol) 650 mg Q6H PRN ORAL mod pain/temp 101 or greater 11/26/19 05:18 12/19/19 05:17 Aspirin (ASA) 81 mg DAILY ORAL 11/26/19 09:00 01/04/20 08:59 Atorvastatin Calcium (Lipitor) 10 mg DAILY ORAL 11/26/19 09:00 02/19/20 08:59 Dextrose (Dextrose 50%) 25 ml Q30M PRN IV Hypoglycemia 11/26/19 05:30 02/18/20 19:59 Dextrose (Dextrose 50%) 50 ml Q30M PRN IV Hypoglycemia 11/26/19 05:30 02/18/20 19:59 Enoxaparin Sodium (Lovenox) 40 mg DAILY SUBQ 11/26/19 09:00 02/19/20 08:59 Haloperidol Lactate (Haldol) 5 mg Q6H PRN IM Agitation 11/26/19 06:45 01/06/20 00:44 Insulin Aspart (NovoLOG) BEFORE MEALS AND HS SUBQ 11/26/19 06:30 02/18/20 20:59 Metoprolol Tartrate (Lopressor) 12.5 mg EVERY 12 HOURS ORAL 11/26/19 09:00 02/18/20 20:59 Nateglinide (Starlix) 60 mg TIAC ORAL 11/26/19 06:30 12/21/19 16:29 Olanzapine (ZyPREXA) 2.5 mg BEDTIME ORAL 11/26/19 21:00 01/06/20 20:59 Sitagliptin Phosphate (Januvia) 100 mg ACBREAKFAST ORAL 11/26/19 06:30 12/21/19 14:59 Josh Contreras MD Nov 26, 2019 10:56
--- NOTE | 2019-11-26 14:13 | Hematology/Onc Progress Note ---
Assessment/Plan Assessment/Plan Assessment/Plan # Anemia of chronic disease due to underlying chronic medical issues, multifactorial v Gi bleed --> Anemia workup has been ordered, rule out gi bleed --> No evidence of hemolysis is noted, peripheral smear has been reviewed. --> Hgb goal >7. Transfuse prn. --> Epogen or iron at this time is not particularly indicated --> Medications have been reviewed --> low threshold for gi evaluation in case has occult + --> hgb 9.2 # Coagulopathy is likely due to COVID 19 pna --> as per id abx --> initially was on abx --> now off them --> mixing study if doesn't improve and repeats inr/ptt are elev # Troponin elevation 0.2 and 0.145 and inferolateral ischemia. Echo ef 65% --> On aspirin, Metoprolol 12.5 bid and Lipitor 10 daily --> Stress test after Covid negative --> per Dr. Garica # Uncontrolled diabetes. # Hypertension, On Lopressor # History of CVA. # Dvt ppx lovenox sq The timing of this note does not necessarily reflect the time of the patient was seen. Greatly appreciate consultation. Subjective Cardiovascular: Denies: no symptoms, chest pain, edema, irregular heart rate, lightheadedness, palpitations, syncope, other Respiratory: Denies: no symptoms, cough, shortness of breath, SOB with excertion, SOB at rest, sputum, wheezing, other Gastrointestinal/Abdominal: Denies: no symptoms, abdomen distended, abdominal pain, black stools, tarry stools, blood in stool, constipated, diarrhea, difficulty swallowing, nausea, poor appetite, poor fluid intake, rectal bleeding , vomiting, other Genitourinary: Denies: no symptoms, burning, discharge, frequency, flank pain, hematuria, incontinence, pain, urgency, other Endocrine: Denies: no symptoms, excessive sweating, flushing, intolerance to cold, intolerance to heat, increased hunger, increased thirst, increased urine, unexplained weight gain, unexplained weight loss, other Allergies: Coded Allergies: No Known Allergies (Unverified , 11/19/19) Subjective 11/24 labs are noted, off abx for covid 19, meds reivewed, MED RECON completed 11/25 labs are noted, no bleeding, remains agitated during exam, no other changes , on ra Objective Objective Current Medications Medications (Trade) Dose Ordered Sig/Jose Route PRN Reason Start Time Stop Time Status Last Admin Dose Admin Acetaminophen (Tylenol) 650 mg Q6H PRN ORAL mod pain/temp 101 or greater 11/26/19 05:18 12/19/19 05:17 Aspirin (ASA) 81 mg DAILY ORAL 11/26/19 09:00 01/04/20 08:59 Atorvastatin Calcium (Lipitor) 10 mg DAILY ORAL 11/26/19 09:00 02/19/20 08:59 Dextrose (Dextrose 50%) 25 ml Q30M PRN IV Hypoglycemia 11/26/19 05:30 02/18/20 19:59 Dextrose (Dextrose 50%) 50 ml Q30M PRN IV Hypoglycemia 11/26/19 05:30 02/18/20 19:59 Enoxaparin Sodium (Lovenox) 40 mg DAILY SUBQ 11/26/19 09:00 02/19/20 08:59 Haloperidol Lactate (Haldol) 5 mg Q6H PRN IM Agitation 11/26/19 06:45 01/06/20 00:44 Insulin Aspart (NovoLOG) BEFORE MEALS AND HS SUBQ 11/26/19 06:30 02/18/20 20:59 Metoprolol Tartrate (Lopressor) 12.5 mg EVERY 12 HOURS ORAL 11/26/19 09:00 02/18/20 20:59 Nateglinide (Starlix) 60 mg TIAC ORAL 11/26/19 06:30 12/21/19 16:29 Olanzapine (ZyPREXA) 2.5 mg BEDTIME ORAL 11/26/19 21:00 01/06/20 20:59 Sitagliptin Phosphate (Januvia) 100 mg ACBREAKFAST ORAL 11/26/19 06:30 12/21/19 14:59 Last 24 Hour Vital Signs Date Time Temp Pulse Resp B/P (MAP) Pulse Ox O2 Delivery O2 Flow Rate FiO2 11/26/19 09:00 66 145/72 11/26/19 09:00 Room Air 11/26/19 04:00 96.8 66 18 145/72 (96) 98 11/25/19 21:00 Room Air 11/25/19 20:49 72 170/70 11/25/19 20:00 97.1 72 17 170/70 (103) 96 11/25/19 09:00 Room Air 11/24/19 21:00 Room Air 11/24/19 16:00 66 11/24/19 15:56 97.9 61 18 145/65 (91) 98 Intake and Output 11/25/19 11/26/19 19:00 07:00 Intake Total 240 ml Balance 240 ml Intake Oral 240 ml # Voids 4 3 # Bowel Movements 1 Labs Test 11/23/19 20:40 Height (Feet): 5 Height (Inches): 10.00 Weight (Pounds): 131 Objective Physical Exam: Vitals: reviewed General: NAD HEENT: nc, at Neck: supple Chest: clear breath sounds bilaterally Cardiovascular: RRR, no s3, s4 Abdomen: soft, nontender, nd Extremities: no cce, normal range of motion Neuro: alert and oriented Alexander Mcnair MD Nov 26, 2019 14:13
[2019-11-26 16:00] VITALS: BP 140/71
[2019-11-26 20:00] VITALS: BP 128/62
[2019-11-26] MEDS: OLANZapine 2.5mg tab ORAL SCH (21:00)
--- NOTE | 2019-11-26 23:55 | Psych Consult Progress Note ---
Psychiatry Progress Note Psychiatry Progress Note Subjective the pt is easily agitated Medications Current Medications Medications (Trade) Dose Ordered Sig/Jose Route PRN Reason Start Time Stop Time Status Last Admin Dose Admin Acetaminophen (Tylenol) 650 mg Q6H PRN ORAL mod pain/temp 101 or greater 11/26/19 05:18 12/19/19 05:17 Aspirin (ASA) 81 mg DAILY ORAL 11/26/19 09:00 01/04/20 08:59 Atorvastatin Calcium (Lipitor) 10 mg DAILY ORAL 11/26/19 09:00 02/19/20 08:59 Dextrose (Dextrose 50%) 25 ml Q30M PRN IV Hypoglycemia 11/26/19 05:30 02/18/20 19:59 Dextrose (Dextrose 50%) 50 ml Q30M PRN IV Hypoglycemia 11/26/19 05:30 02/18/20 19:59 Enoxaparin Sodium (Lovenox) 40 mg DAILY SUBQ 11/26/19 09:00 02/19/20 08:59 Haloperidol Lactate (Haldol) 5 mg Q6H PRN IM Agitation 11/26/19 06:45 01/06/20 00:44 Insulin Aspart (NovoLOG) BEFORE MEALS AND HS SUBQ 11/26/19 06:30 02/18/20 20:59 11/26/19 16:25 Metoprolol Tartrate (Lopressor) 12.5 mg EVERY 12 HOURS ORAL 11/26/19 09:00 02/18/20 20:59 11/26/19 21:00 Nateglinide (Starlix) 60 mg TIAC ORAL 11/26/19 06:30 12/21/19 16:29 11/26/19 16:23 Olanzapine (ZyPREXA) 2.5 mg BEDTIME ORAL 11/26/19 21:00 01/06/20 20:59 11/26/19 21:00 Sitagliptin Phosphate (Januvia) 100 mg ACBREAKFAST ORAL 11/26/19 06:30 12/21/19 14:59 Neurological/Psychiatric: Reports: anxiety, depressed, emotional problems Allergies: Coded Allergies: No Known Allergies (Unverified , 11/19/19) Objective Data Height (Feet): 5 Height (Inches): 10.00 Weight (Pounds): 131 General Appearance: no apparent distress Additional Comments: awake, disoriented. Mood is anxious. Affect is blunted. Thought process is concrete. Thought content, no suicidal or homicidal ideation. Cognition is impaired. Insight and judgment impaired. Assessment/Plan [place] I: ASSESSMENT: AXIS I: Vascular dementia. Rule out acute encephalopathy. AXIS II: Deferred. AXIS III: COVID-19. AXIS IV: Low. AXIS V: 20. PLAN: 1. The patient lacks capacity to refuse procedures and labs. 2. Suggestive the Haldol prior to the lab draw and place the patient on bilateral restraints. Status: unchanged Status Narrative ASSESSMENT: AXIS I: Vascular dementia. Rule out acute encephalopathy. AXIS II: Deferred. AXIS III: COVID-19. AXIS IV: Low. AXIS V: 20. PLAN: 1. The patient lacks capacity to refuse procedures and labs. 2. Suggestive the Haldol prior to the lab draw and place the patient on bilateral restraints. Assessment/Plan: ASSESSMENT: AXIS I: Vascular dementia. Rule out acute encephalopathy. AXIS II: Deferred. AXIS III: COVID-19. AXIS IV: Low. AXIS V: 20. PLAN: 1. The patient lacks capacity to refuse procedures and labs. 2. Suggestive the Haldol prior to the lab draw and place the patient on bilateral restraints. Reno Gooden MD Nov 26, 2019 23:55
[2019-11-27 04:00] VITALS: BP_SYST 137; BP_SYST 139; BP_DIAS 65; BP_DIAS 78
[2019-11-27] MEDS: NovoLOG Insulin Flexpen SUBQ SCH ×4 (06:27→21:00)
[2019-11-27] MEDS: Nateglinide 60mg tab ORAL SCH ×4 (06:27→16:30)
[2019-11-27 08:00] VITALS: BP 132/72
[2019-11-27] MEDS: Aspirin Baby 81mg ORAL SCH ×2 (09:00→09:07)
[2019-11-27] MEDS: Metoprolol Tartrate 12.5mg TAB ORAL SCH ×3 (09:00→21:14)
[2019-11-27] MEDS: Enoxaparin 40mg Inj SUBQ SCH (09:00)
--- NOTE | 2019-11-27 10:14 | Pulmonology Progress Note ---
Subjective ROS Limited/Unobtainable: Yes Interval Events: None new Constitutional: Denies: fever HEENT: Repors: no symptoms Respiratory: Reports: dry cough Cardiovascular: Reports: no symptoms Gastrointestinal/Abdominal: Reports: no symptoms Psychiatric: Reports: other - refuses medications Allergies: Coded Allergies: No Known Allergies (Unverified , 11/19/19) All Systems: reviewed and negative except above Objective Last 24 Hour Vital Signs Date Time Temp Pulse Resp B/P (MAP) Pulse Ox O2 Delivery O2 Flow Rate FiO2 11/27/19 09:08 65 132/70 11/27/19 08:00 98.4 65 20 132/72 (92) 96 11/27/19 07:49 Room Air 11/27/19 04:00 98.6 69 20 139/78 (98) 96 11/26/19 21:00 55 128/62 11/26/19 21:00 Room Air 11/26/19 20:00 97.9 55 18 128/62 (84) 96 11/26/19 16:00 97.5 64 20 140/71 (94) 98 Intake and Output 11/26/19 11/27/19 19:00 07:00 Intake Total 360 ml Output Total 100 ml Balance 360 ml -100 ml Intake Oral 360 ml Output Urine Total 100 ml # Voids 3 2 General Appearance: no acute distress HEENT: normocephalic Respiratory: chest wall non-tender, lungs clear Cardiovascular: normal peripheral pulses, normal rate Abdomen: normal bowel sounds Current Medications Medications (Trade) Dose Ordered Sig/Jose Route PRN Reason Start Time Stop Time Status Last Admin Dose Admin Acetaminophen (Tylenol) 650 mg Q6H PRN ORAL mod pain/temp 101 or greater 11/26/19 05:18 12/19/19 05:17 Aspirin (ASA) 81 mg DAILY ORAL 11/26/19 09:00 01/04/20 08:59 11/27/19 09:07 Atorvastatin Calcium (Lipitor) 10 mg DAILY ORAL 11/26/19 09:00 02/19/20 08:59 11/27/19 09:07 Dextrose (Dextrose 50%) 25 ml Q30M PRN IV Hypoglycemia 11/26/19 05:30 02/18/20 19:59 Dextrose (Dextrose 50%) 50 ml Q30M PRN IV Hypoglycemia 11/26/19 05:30 02/18/20 19:59 Enoxaparin Sodium (Lovenox) 40 mg DAILY SUBQ 11/26/19 09:00 02/19/20 08:59 Haloperidol Lactate (Haldol) 5 mg Q6H PRN IM Agitation 11/26/19 06:45 01/06/20 00:44 Insulin Aspart (NovoLOG) BEFORE MEALS AND HS SUBQ 11/26/19 06:30 02/18/20 20:59 11/26/19 16:25 Metoprolol Tartrate (Lopressor) 12.5 mg EVERY 12 HOURS ORAL 11/26/19 09:00 02/18/20 20:59 11/27/19 09:08 Nateglinide (Starlix) 60 mg TIAC ORAL 11/26/19 06:30 12/21/19 16:29 11/26/19 16:23 Olanzapine (ZyPREXA) 2.5 mg BEDTIME ORAL 11/26/19 21:00 01/06/20 20:59 11/26/19 21:00 Sitagliptin Phosphate (Januvia) 100 mg ACBREAKFAST ORAL 11/26/19 06:30 12/21/19 14:59 Assessment/Plan Assessment/Plan IMPRESSION: 1. COVID19 pneumonia. 2. Hypoglycemia. 3. Diabetes mellitus. 4. Hypertension. 5. CVA. DISCUSSION: Continue medications I will follow carefully. Saturating well on RA Dc planning Cesar Hancock Omar Syed MD Nov 27, 2019 10:14
--- NOTE | 2019-11-27 11:06 | Nephrology Progress Note ---
Assessment/Plan Problem List: (1) Electrolyte imbalance Assessment: Hyponatremia (2) Diabetes mellitus (3) Hypoglycemia (4) COVID-19 (5) Pneumonia (6) UTI (urinary tract infection) (7) NSTEMI (non-ST elevated myocardial infarction) Assessment Hyponatremia likely depletional Diabetes mellitus, with periodic hypoglycemia Non-STEMI COVID-19, pneumonia UTI Hypertension Previous CVA Plan November 26: No blood drawn yet. Stable clinically. November 25: Patient refused blood draw today. Clinically stable. November 24: No labs done again today. Clinically stable. November 23: No labs done today. Clinically stable. Continue per consultants. November 22: Labs reviewed. Renal parameters stable. Magnesium slightly low. IV magnesium ordered. Continue per consultants. November 21: No labs available. Physical examination and vital signs are all okay. Psychiatric evaluation noted and appreciated. Patient lacks capacity to make decisions and refuse labs. Patient been refusing blood draw and taking medication today according to the RN Keep the blood pressure and blood sugar in check as possible Slow hydrate Monitor electrolytes Per consultants Subjective ROS Limited/Unobtainable: No Objective Objective Last 24 Hour Vital Signs Date Time Temp Pulse Resp B/P (MAP) Pulse Ox O2 Delivery O2 Flow Rate FiO2 11/27/19 09:08 65 132/70 11/27/19 08:00 98.4 65 20 132/72 (92) 96 11/27/19 07:49 Room Air 11/27/19 04:00 98.6 69 20 139/78 (98) 96 11/26/19 21:00 55 128/62 11/26/19 21:00 Room Air 11/26/19 20:00 97.9 55 18 128/62 (84) 96 11/26/19 16:00 97.5 64 20 140/71 (94) 98 Intake and Output 11/26/19 11/27/19 19:00 07:00 Intake Total 360 ml Output Total 100 ml Balance 360 ml -100 ml Intake Oral 360 ml Output Urine Total 100 ml # Voids 3 2 Refuses lab work Height (Feet): 5 Height (Inches): 10.00 Weight (Pounds): 134 General Appearance: no apparent distress Objective Unchanged Ilya López MD Nov 27, 2019 11:06
[2019-11-27 12:00] VITALS: BP 158/68
--- NOTE | 2019-11-27 14:41 | Cardiac Electrophysiology PN ---
Assessment/Plan Assessment/Plan 1. Troponin elevation 0.2 and 0.145 and inferolateral ischemia. Denies chest pain. On aspirin, Metoprolol 12.5 bid and Lipitor 10 daily if he takes them. Echo EF 65% Stress test after Covid negative if pt agrees as is very noncompliant 2. Positive COVID. 3. Uncontrolled diabetes. 4. Hypertension, On Lopressor 5. History of CVA. TAB RN Subjective Subjective In isolation for Covid. Refusing meds, Labs and tele and transferred to Med Surg Objective Last 24 Hour Vital Signs Date Time Temp Pulse Resp B/P (MAP) Pulse Ox O2 Delivery O2 Flow Rate FiO2 11/27/19 08:00 98.4 65 20 132/72 (92) 96 11/27/19 07:49 Room Air 11/27/19 04:00 98.6 69 20 139/78 (98) 96 11/26/19 21:00 55 128/62 11/26/19 21:00 Room Air 11/26/19 20:00 97.9 55 18 128/62 (84) 96 11/26/19 16:00 97.5 64 20 140/71 (94) 98 Intake and Output 11/26/19 11/27/19 19:00 07:00 Intake Total 360 ml Output Total 100 ml Balance 360 ml -100 ml Intake Oral 360 ml Output Urine Total 100 ml # Voids 3 2 Objective HEAD AND NECK: No JVD. LUNGS: Coarse rhonchi. CARDIOVASCULAR: Regular S1 and S2 with no gallop or murmur. ABDOMEN: Soft. EXTREMITIES: No pitting edema. Sean Garcia MD Nov 27, 2019 14:41
[2019-11-27 16:00] VITALS: BP 145/73
[2019-11-27 20:00] VITALS: BP 137/66
[2019-11-27] MEDS: OLANZapine 2.5mg tab ORAL SCH (21:14)
--- NOTE | 2019-11-27 21:38 | General Progress Note ---
Assessment/Plan Problem List: (1) COVID-19 ICD Codes: U07.1 - COVID-19 SNOMED: 683560932 (2) Pneumonia ICD Codes: J18.9 - Pneumonia, unspecified organism SNOMED: 533838981 (3) UTI (urinary tract infection) ICD Codes: N39.0 - Urinary tract infection, site not specified SNOMED: 63839746 (4) Diabetes mellitus ICD Codes: E11.9 - Type 2 diabetes mellitus without complications SNOMED: 60348415 (5) Hypoglycemia ICD Codes: E16.2 - Hypoglycemia, unspecified SNOMED: 936739006 (6) NSTEMI (non-ST elevated myocardial infarction) ICD Codes: I21.4 - Non-ST elevation (NSTEMI) myocardial infarction SNOMED: 71286620 (7) Electrolyte imbalance ICD Codes: E87.8 - Other disorders of electrolyte and fluid balance, not elsewhere classified SNOMED: 704063254 Status: progressing, unchanged Assessment/Plan: supportive care not eating consulted dr massey for not eating refusing meds reviewed chart covid pna uti improving Subjective ROS Limited/Unobtainable: Yes Allergies: Coded Allergies: No Known Allergies (Unverified , 11/19/19) Objective Last 24 Hour Vital Signs Date Time Temp Pulse Resp B/P (MAP) Pulse Ox O2 Delivery O2 Flow Rate FiO2 11/27/19 21:14 57 137/66 11/27/19 20:42 Room Air 11/27/19 20:00 97.8 57 19 137/66 (89) 96 11/27/19 16:00 98.6 62 20 145/73 (97) 95 11/27/19 12:00 98.2 59 20 158/68 (98) 95 11/27/19 08:00 98.4 65 20 132/72 (92) 96 11/27/19 07:49 Room Air 11/27/19 04:00 98.6 69 20 139/78 (98) 96 Intake and Output 11/26/19 11/27/19 19:00 07:00 Intake Total 360 ml Output Total 100 ml Balance 360 ml -100 ml Intake Oral 360 ml Output Urine Total 100 ml # Voids 3 2 Height (Feet): 5 Height (Inches): 10.00 Weight (Pounds): 134 Sharon Dobson MD Nov 27, 2019 21:38
[2019-11-28] VITALS: BP 126/59
[2019-11-28 04:00] VITALS: BP 157/77
[2019-11-28] MEDS: NovoLOG Insulin Flexpen SUBQ SCH ×4 (06:30→21:00)
[2019-11-28] MEDS: Nateglinide 60mg tab ORAL SCH ×3 (06:30→17:20)
--- NOTE | 2019-11-28 07:53 | Hematology/Onc Progress Note ---
Assessment/Plan Assessment/Plan Assessment/Plan # Anemia of chronic disease due to underlying chronic medical issues, multifactorial v Gi bleed --> Anemia workup has been ordered, rule out gi bleed --> No evidence of hemolysis is noted, peripheral smear has been reviewed. --> Hgb goal >7. Transfuse prn. --> Epogen or iron at this time is not particularly indicated --> Medications have been reviewed --> low threshold for gi evaluation in case has occult + --> hgb 9.2-->9.3 # Coagulopathy is likely due to COVID 19 pna --> as per id abx --> initially was on abx --> now off them --> mixing study if doesn't improve and repeats inr/ptt are elev # Troponin elevation 0.2 and 0.145 and inferolateral ischemia. Echo ef 65% --> On aspirin, Metoprolol 12.5 bid and Lipitor 10 daily --> Stress test after Covid negative --> per Dr. Garcia # Uncontrolled diabetes. # Hypertension, On Lopressor # History of CVA. # Dvt ppx lovenox sq The timing of this note does not necessarily reflect the time of the patient was seen. Greatly appreciate consultation. Subjective HEENT: Denies: no symptoms, eye pain, blurred vision, tearing, double vision, ear pain, ear discharge, nose pain, nose congestion, throat pain, throat swelling, mouth pain, mouth swelling, other Cardiovascular: Denies: no symptoms, chest pain, edema, irregular heart rate, lightheadedness, palpitations, syncope, other Respiratory: Denies: no symptoms, cough, shortness of breath, SOB with excertion, SOB at rest, sputum, wheezing, other Gastrointestinal/Abdominal: Denies: no symptoms, abdomen distended, abdominal pain, black stools, tarry stools, blood in stool, constipated, diarrhea, difficulty swallowing, nausea, poor appetite, poor fluid intake, rectal bleeding , vomiting, other Neurologic/Psychiatric: Denies: no symptoms, anxiety, depressed, emotional problems, headache, numbness, paresthesia, pre-existing deficit, seizure, tingling, tremors, weakness, other Endocrine: Denies: no symptoms, excessive sweating, flushing, intolerance to cold, intolerance to heat, increased hunger, increased thirst, increased urine, unexplained weight gain, unexplained weight loss, other Hematologic/Lymphatic: Denies: no symptoms, anemia, easy bleeding, easy bruising, adenopathy, other Allergies: Coded Allergies: No Known Allergies (Unverified , 11/19/19) Subjective 11/24 labs are noted, off abx for covid 19, meds reivewed, MED RECON completed 11/25 labs are noted, no bleeding, remains agitated during exam, no other changes , on ra 11/27 has continued to refuse labs, and noncompliant with meds, no bleeding noted Objective Objective Current Medications Medications (Trade) Dose Ordered Sig/Jose Route PRN Reason Start Time Stop Time Status Last Admin Dose Admin Acetaminophen (Tylenol) 650 mg Q6H PRN ORAL mod pain/temp 101 or greater 11/26/19 05:18 12/19/19 05:17 Aspirin (ASA) 81 mg DAILY ORAL 11/26/19 09:00 01/04/20 08:59 Atorvastatin Calcium (Lipitor) 10 mg DAILY ORAL 11/26/19 09:00 02/19/20 08:59 Dextrose (Dextrose 50%) 25 ml Q30M PRN IV Hypoglycemia 11/26/19 05:30 02/18/20 19:59 Dextrose (Dextrose 50%) 50 ml Q30M PRN IV Hypoglycemia 11/26/19 05:30 02/18/20 19:59 Enoxaparin Sodium (Lovenox) 40 mg DAILY SUBQ 11/26/19 09:00 02/19/20 08:59 Haloperidol Lactate (Haldol) 5 mg Q6H PRN IM Agitation 11/26/19 06:45 01/06/20 00:44 Insulin Aspart (NovoLOG) BEFORE MEALS AND HS SUBQ 11/26/19 06:30 02/18/20 20:59 11/26/19 16:25 Metoprolol Tartrate (Lopressor) 12.5 mg EVERY 12 HOURS ORAL 11/26/19 09:00 02/18/20 20:59 11/27/19 21:14 Nateglinide (Starlix) 60 mg TIAC ORAL 11/26/19 06:30 12/21/19 16:29 11/26/19 16:23 Olanzapine (ZyPREXA) 2.5 mg BEDTIME ORAL 11/26/19 21:00 01/06/20 20:59 11/27/19 21:14 Sitagliptin Phosphate (Januvia) 100 mg ACBREAKFAST ORAL 11/26/19 06:30 12/21/19 14:59 Last 24 Hour Vital Signs Date Time Temp Pulse Resp B/P (MAP) Pulse Ox O2 Delivery O2 Flow Rate FiO2 11/28/19 04:00 97.5 57 19 157/77 (103) 98 11/28/19 00:00 97.3 53 19 126/59 (81) 94 11/27/19 21:14 57 137/66 11/27/19 20:42 Room Air 11/27/19 20:00 97.8 57 19 137/66 (89) 96 11/27/19 16:00 98.6 62 20 145/73 (97) 95 11/27/19 12:00 98.2 59 20 158/68 (98) 95 11/27/19 08:00 98.4 65 20 132/72 (92) 96 11/27/19 07:49 Room Air 11/27/19 04:00 98.6 69 20 139/78 (98) 96 11/26/19 21:00 55 128/62 11/26/19 21:00 Room Air 11/26/19 20:00 97.9 55 18 128/62 (84) 96 11/26/19 16:00 97.5 64 20 140/71 (94) 98 11/26/19 09:00 66 145/72 11/26/19 09:00 Room Air Intake and Output 11/27/19 11/28/19 19:00 07:00 Intake Total 360 ml Balance 360 ml Intake Oral 360 ml # Voids 3 2 Height (Feet): 5 Height (Inches): 10.00 Weight (Pounds): 134 Objective Physical Exam: Vitals: reviewed General: NAD HEENT: nc, at Neck: supple Chest: clear breath sounds bilaterally Cardiovascular: RRR, no s3, s4 Abdomen: soft, nontender, nd Extremities: no cce, normal range of motion Neuro: alert and oriented Alexander Mcnair MD Nov 28, 2019 07:53
[2019-11-28 08:00] VITALS: BP 144/80
--- NOTE | 2019-11-28 09:50 | Nephrology Progress Note ---
Assessment/Plan Problem List: (1) Electrolyte imbalance Assessment: Hyponatremia (2) Diabetes mellitus (3) Hypoglycemia (4) COVID-19 (5) Pneumonia (6) UTI (urinary tract infection) (7) NSTEMI (non-ST elevated myocardial infarction) Assessment Hyponatremia likely depletional Diabetes mellitus, with periodic hypoglycemia Non-STEMI COVID-19, pneumonia UTI Hypertension Previous CVA Plan November 27: Patient refuses labs and blood sugar check, and has pulled out IV previously. He also refuses PO meds, periodically. RN states that the patient takes p.o. but not fully. Continue per psych advice and management. November 26: No blood drawn yet. Stable clinically. November 25: Patient refused blood draw today. Clinically stable. November 24: No labs done again today. Clinically stable. November 23: No labs done today. Clinically stable. Continue per consultants. November 22: Labs reviewed. Renal parameters stable. Magnesium slightly low. IV magnesium ordered. Continue per consultants. November 21: No labs available. Physical examination and vital signs are all okay. Psychiatric evaluation noted and appreciated. Patient lacks capacity to make decisions and refuse labs. Patient been refusing blood draw and taking medication today according to the RN Keep the blood pressure and blood sugar in check as possible Slow hydrate Monitor electrolytes Per consultants Subjective ROS Limited/Unobtainable: No Objective Objective Last 24 Hour Vital Signs Date Time Temp Pulse Resp B/P (MAP) Pulse Ox O2 Delivery O2 Flow Rate FiO2 11/28/19 08:00 97.8 61 19 144/80 (101) 99 11/28/19 04:00 97.5 57 19 157/77 (103) 98 11/28/19 00:00 97.3 53 19 126/59 (81) 94 11/27/19 21:14 57 137/66 11/27/19 20:42 Room Air 11/27/19 20:00 97.8 57 19 137/66 (89) 96 11/27/19 16:00 98.6 62 20 145/73 (97) 95 11/27/19 12:00 98.2 59 20 158/68 (98) 95 Intake and Output 11/27/19 11/28/19 19:00 07:00 Intake Total 360 ml Balance 360 ml Intake Oral 360 ml # Voids 3 2 Height (Feet): 5 Height (Inches): 10.00 Weight (Pounds): 134 General Appearance: no apparent distress Cardiovascular: normal rate Objective Unchanged Ilya López MD Nov 28, 2019 09:50
[2019-11-28] MEDS: Metoprolol Tartrate 12.5mg TAB ORAL SCH ×2 (10:38→21:00)
[2019-11-28] MEDS: Aspirin Baby 81mg ORAL SCH (10:38)
[2019-11-28] MEDS: Enoxaparin 40mg Inj SUBQ SCH (10:39)
--- NOTE | 2019-11-28 10:56 | Pulmonology Progress Note ---
Subjective ROS Limited/Unobtainable: No Interval Events: None new Constitutional: Denies: fever HEENT: Repors: no symptoms Respiratory: Reports: dry cough Cardiovascular: Reports: no symptoms Gastrointestinal/Abdominal: Reports: no symptoms Psychiatric: Reports: other - refuses medications Allergies: Coded Allergies: No Known Allergies (Unverified , 11/19/19) All Systems: reviewed and negative except above Objective Last 24 Hour Vital Signs Date Time Temp Pulse Resp B/P (MAP) Pulse Ox O2 Delivery O2 Flow Rate FiO2 11/28/19 10:38 61 144/80 11/28/19 08:00 97.8 61 19 144/80 (101) 99 11/28/19 04:00 97.5 57 19 157/77 (103) 98 11/28/19 00:00 97.3 53 19 126/59 (81) 94 11/27/19 21:14 57 137/66 11/27/19 20:42 Room Air 11/27/19 20:00 97.8 57 19 137/66 (89) 96 11/27/19 16:00 98.6 62 20 145/73 (97) 95 11/27/19 12:00 98.2 59 20 158/68 (98) 95 Intake and Output 11/27/19 11/28/19 19:00 07:00 Intake Total 360 ml Balance 360 ml Intake Oral 360 ml # Voids 3 2 General Appearance: no acute distress HEENT: normocephalic Respiratory: chest wall non-tender, lungs clear Cardiovascular: normal peripheral pulses, normal rate Abdomen: normal bowel sounds Current Medications Medications (Trade) Dose Ordered Sig/Jose Route PRN Reason Start Time Stop Time Status Last Admin Dose Admin Acetaminophen (Tylenol) 650 mg Q6H PRN ORAL mod pain/temp 101 or greater 11/26/19 05:18 12/19/19 05:17 Aspirin (ASA) 81 mg DAILY ORAL 11/26/19 09:00 01/04/20 08:59 11/28/19 10:38 Atorvastatin Calcium (Lipitor) 10 mg DAILY ORAL 11/26/19 09:00 02/19/20 08:59 11/28/19 10:38 Dextrose (Dextrose 50%) 25 ml Q30M PRN IV Hypoglycemia 11/26/19 05:30 02/18/20 19:59 Dextrose (Dextrose 50%) 50 ml Q30M PRN IV Hypoglycemia 11/26/19 05:30 02/18/20 19:59 Enoxaparin Sodium (Lovenox) 40 mg DAILY SUBQ 11/26/19 09:00 02/19/20 08:59 11/28/19 10:39 Haloperidol Lactate (Haldol) 5 mg Q6H PRN IM Agitation 11/26/19 06:45 01/06/20 00:44 Insulin Aspart (NovoLOG) BEFORE MEALS AND HS SUBQ 11/26/19 06:30 02/18/20 20:59 11/26/19 16:25 Metoprolol Tartrate (Lopressor) 12.5 mg EVERY 12 HOURS ORAL 11/26/19 09:00 02/18/20 20:59 11/28/19 10:38 Nateglinide (Starlix) 60 mg TIAC ORAL 11/26/19 06:30 12/21/19 16:29 11/26/19 16:23 Olanzapine (ZyPREXA) 2.5 mg BEDTIME ORAL 11/26/19 21:00 01/06/20 20:59 11/27/19 21:14 Sitagliptin Phosphate (Januvia) 100 mg ACBREAKFAST ORAL 11/26/19 06:30 12/21/19 14:59 Assessment/Plan Assessment/Plan IMPRESSION: 1. COVID19 pneumonia. 2. Hypoglycemia. 3. Diabetes mellitus. 4. Hypertension. 5. CVA. DISCUSSION: Continue medications I will follow carefully. Saturating well on RA Dc planning Cesar Hancock Omar Syed MD Nov 28, 2019 10:56
[2019-11-28 12:00] VITALS: BP 135/79
--- NOTE | 2019-11-28 13:35 | Infectious Diseases Prog Note ---
Assessment/Plan Assessment/Plan IMPRESSION: COVID-19 disease Diabetes mellitus with hypoglycemia, Hypertension, Anemia, elevation in troponin. RECOMMENDATION: Agree with discharge Observe off of antibiotic Subjective ROS Limited/Unobtainable: Yes Constitutional: Denies: fever Respiratory: Reports: no symptoms Allergies: Coded Allergies: No Known Allergies (Unverified , 11/19/19) Objective Last 24 Hour Vital Signs Date Time Temp Pulse Resp B/P (MAP) Pulse Ox O2 Delivery O2 Flow Rate FiO2 11/28/19 12:00 98.0 65 20 135/79 (97) 98 11/28/19 10:38 61 144/80 11/28/19 09:00 Room Air 11/28/19 08:00 97.8 61 19 144/80 (101) 99 11/28/19 04:00 97.5 57 19 157/77 (103) 98 11/28/19 00:00 97.3 53 19 126/59 (81) 94 11/27/19 21:14 57 137/66 11/27/19 20:42 Room Air 11/27/19 20:00 97.8 57 19 137/66 (89) 96 11/27/19 16:00 98.6 62 20 145/73 (97) 95 Height (Feet): 5 Height (Inches): 10.00 Weight (Pounds): 134 General Appearance: no acute distress HEENT: mucous membranes moist Respiratory/Chest: no accessory muscle use Cardiovascular: normal rate Abdomen: soft, non tender Extremities: no edema Neurologic/Psychiatric: alert, responsive Current Medications Medications (Trade) Dose Ordered Sig/Jose Route PRN Reason Start Time Stop Time Status Last Admin Dose Admin Acetaminophen (Tylenol) 650 mg Q6H PRN ORAL mod pain/temp 101 or greater 11/26/19 05:18 12/19/19 05:17 Aspirin (ASA) 81 mg DAILY ORAL 11/26/19 09:00 01/04/20 08:59 11/28/19 10:38 Atorvastatin Calcium (Lipitor) 10 mg DAILY ORAL 11/26/19 09:00 02/19/20 08:59 11/28/19 10:38 Dextrose (Dextrose 50%) 25 ml Q30M PRN IV Hypoglycemia 11/26/19 05:30 02/18/20 19:59 Dextrose (Dextrose 50%) 50 ml Q30M PRN IV Hypoglycemia 11/26/19 05:30 02/18/20 19:59 Enoxaparin Sodium (Lovenox) 40 mg DAILY SUBQ 11/26/19 09:00 02/19/20 08:59 11/28/19 10:39 Haloperidol Lactate (Haldol) 5 mg Q6H PRN IM Agitation 11/26/19 06:45 01/06/20 00:44 Insulin Aspart (NovoLOG) BEFORE MEALS AND HS SUBQ 11/26/19 06:30 02/18/20 20:59 11/28/19 13:05 Metoprolol Tartrate (Lopressor) 12.5 mg EVERY 12 HOURS ORAL 11/26/19 09:00 02/18/20 20:59 11/28/19 10:38 Nateglinide (Starlix) 60 mg TIAC ORAL 11/26/19 06:30 12/21/19 16:29 11/28/19 13:02 Olanzapine (ZyPREXA) 2.5 mg BEDTIME ORAL 11/26/19 21:00 01/06/20 20:59 11/27/19 21:14 Sitagliptin Phosphate (Januvia) 100 mg ACBREAKFAST ORAL 11/26/19 06:30 12/21/19 14:59 Josh Contreras MD Nov 28, 2019 13:35
--- NOTE | 2019-11-28 15:40 | General Progress Note ---
Assessment/Plan Status: progressing, unchanged Assessment/Plan: GI Consult Dictated Thank you Sid Cooper MD Subjective Allergies: Coded Allergies: No Known Allergies (Unverified , 11/19/19) Objective Last 24 Hour Vital Signs Date Time Temp Pulse Resp B/P (MAP) Pulse Ox O2 Delivery O2 Flow Rate FiO2 11/28/19 12:00 98.0 65 20 135/79 (97) 98 11/28/19 10:38 61 144/80 11/28/19 09:00 Room Air 11/28/19 08:00 97.8 61 19 144/80 (101) 99 11/28/19 04:00 97.5 57 19 157/77 (103) 98 11/28/19 00:00 97.3 53 19 126/59 (81) 94 11/27/19 21:14 57 137/66 11/27/19 20:42 Room Air 11/27/19 20:00 97.8 57 19 137/66 (89) 96 11/27/19 16:00 98.6 62 20 145/73 (97) 95 Intake and Output 11/27/19 11/28/19 19:00 07:00 Intake Total 360 ml Balance 360 ml Intake Oral 360 ml # Voids 3 2 Laboratory Tests 11/28/19 14:00: Stool Occult Blood [Pending] Height (Feet): 5 Height (Inches): 10.00 Weight (Pounds): 134 Sid Cooper MD Nov 28, 2019 15:40
[2019-11-28 16:00] VITALS: BP 137/82
--- NOTE | 2019-11-28 16:19 | Cardiac Electrophysiology PN ---
Assessment/Plan Assessment/Plan 1. Troponin elevation 0.2 and 0.145 and inferolateral ischemia. Denies chest pain. On aspirin, Metoprolol 12.5 bid and Lipitor 10 daily if he takes them. Echo EF 65% Stress test after Covid negative if pt agrees as is very noncompliant 2. Positive COVID. 3. Uncontrolled diabetes. 4. Hypertension, On Lopressor 5. History of CVA. 6. Hyperlipidemia on Lipitor DW RN Subjective Subjective In isolation for Covid. Now agreed to take meds and have blood test done. Objective Last 24 Hour Vital Signs Date Time Temp Pulse Resp B/P (MAP) Pulse Ox O2 Delivery O2 Flow Rate FiO2 11/28/19 12:00 98.0 65 20 135/79 (97) 98 11/28/19 10:38 61 144/80 11/28/19 09:00 Room Air 11/28/19 08:00 97.8 61 19 144/80 (101) 99 11/28/19 04:00 97.5 57 19 157/77 (103) 98 11/28/19 00:00 97.3 53 19 126/59 (81) 94 11/27/19 21:14 57 137/66 11/27/19 20:42 Room Air 11/27/19 20:00 97.8 57 19 137/66 (89) 96 Intake and Output 11/27/19 11/28/19 19:00 07:00 Intake Total 360 ml Balance 360 ml Intake Oral 360 ml # Voids 3 2 Laboratory Tests Test 11/28/19 14:00 Stool Occult Blood Pending Objective HEAD AND NECK: No JVD. LUNGS: Coarse rhonchi. CARDIOVASCULAR: Regular S1 and S2 with no gallop or murmur. ABDOMEN: Soft. EXTREMITIES: No pitting edema. Sean Garcia MD Nov 28, 2019 16:19
--- NOTE | 2019-11-28 16:55 | General Progress Note ---
Assessment/Plan Problem List: (1) COVID-19 ICD Codes: U07.1 - COVID-19 SNOMED: 458410749 (2) Pneumonia ICD Codes: J18.9 - Pneumonia, unspecified organism SNOMED: 001020669 (3) UTI (urinary tract infection) ICD Codes: N39.0 - Urinary tract infection, site not specified SNOMED: 51413407 (4) Diabetes mellitus ICD Codes: E11.9 - Type 2 diabetes mellitus without complications SNOMED: 21154369 (5) Hypoglycemia ICD Codes: E16.2 - Hypoglycemia, unspecified SNOMED: 152419358 (6) NSTEMI (non-ST elevated myocardial infarction) ICD Codes: I21.4 - Non-ST elevation (NSTEMI) myocardial infarction SNOMED: 47107342 (7) Electrolyte imbalance ICD Codes: E87.8 - Other disorders of electrolyte and fluid balance, not elsewhere classified SNOMED: 280705000 Status: progressing, unchanged Assessment/Plan: no fever weak refusing to eat and iv fluid review chart no change covid pna uti improving Subjective ROS Limited/Unobtainable: Yes Allergies: Coded Allergies: No Known Allergies (Unverified , 11/19/19) Objective Last 24 Hour Vital Signs Date Time Temp Pulse Resp B/P (MAP) Pulse Ox O2 Delivery O2 Flow Rate FiO2 11/28/19 16:00 98.3 70 20 137/82 (100) 97 11/28/19 12:00 98.0 65 20 135/79 (97) 98 11/28/19 10:38 61 144/80 11/28/19 09:00 Room Air 11/28/19 08:00 97.8 61 19 144/80 (101) 99 11/28/19 04:00 97.5 57 19 157/77 (103) 98 11/28/19 00:00 97.3 53 19 126/59 (81) 94 11/27/19 21:14 57 137/66 11/27/19 20:42 Room Air 11/27/19 20:00 97.8 57 19 137/66 (89) 96 Intake and Output 11/27/19 11/28/19 19:00 07:00 Intake Total 360 ml Balance 360 ml Intake Oral 360 ml # Voids 3 2 Laboratory Tests 11/28/19 14:00: Stool Occult Blood [Pending] Height (Feet): 5 Height (Inches): 10.00 Weight (Pounds): 134 Sharon Dobson MD Nov 28, 2019 16:55
[2019-11-28 20:00] VITALS: BP 121/78
[2019-11-28] MEDS: OLANZapine 2.5mg tab ORAL SCH (21:30)
[2019-11-29] VITALS: BP 152/72
--- NOTE | 2019-11-29 02:00 | Consultation ---
DATE OF CONSULTATION: 11/28/2019 GASTROLOGY CONSULTATION CONSULTING PHYSICIAN: Sid Cooper M.D. CHIEF COMPLAINT: "I was asked to see this patient by Dr. Herrera for evaluation of anorexia." HISTORY OF PRESENT ILLNESS: The patient is a 64-year-old man, who was admitted initially around 9 days ago with hyperglycemia and then urinary tract infection, elevated troponin, and was also found to be positive for COVID with some patchy opacities on x-ray. He has been here for some time and had been seen by multiple consultants. He has been refusing lot of medications and treatments. He also does not eat much. This is the reason for consultation. I asked the patient why, he simply stated that he does not like the food. He denies any abdominal pain or nausea or vomiting. He does have anemia and stool occult blood is pending. However, he cannot recall if he has had a colonoscopy. He does not remember having rectal examinations. PAST MEDICAL HISTORY: History of hyperlipidemia, stroke, [id number] diabetes mellitus, hypertension, and hypoglycemia. FAMILY HISTORY: Noncontributory. ALLERGIES: None. SOCIAL HISTORY: The patient does not smoke or drink alcohol. REVIEW OF SYSTEMS: Otherwise negative. PHYSICAL EXAMINATION: GENERAL: Elderly man seen in his room. HEENT: Normocephalic and atraumatic. Sclerae anicteric. Oropharynx clear. NECK: Supple. CHEST: Clear to auscultation. CARDIAC: Regular rhythm and rate. ABDOMEN: Soft and nontender. EXTREMITIES: Revealed no edema. LABORATORY DATA: Noted. ASSESSMENT: This patient has had poor oral intake as an inpatient, but he attributes to his oral intake due to dislikes of the hospital food. He said that he would probably be better at home. He denies any physical , but he does have a degree of anemia with some iron deficiency. Therefore, he should undergo endoscopy and colonoscopy once he stabilizes. In the meantime, I would have a dietitian see the patient to go over stories of foods and perhaps encourage the family to bring food from home to improve his oral intake. Supplements can be given as well such as the Ensure or Boost and appetite stimulants can also be given, but once again it appears not to be an appetite issue more of a choice issue that has reduced the patient's intake. RECOMMENDATIONS: Per above discussion and per orders in the chart. Thank you for asking me to participate in the care of this patient. Sid Cooper M.D. DR: ARMIDA JOB#: [id number] CC:
[2019-11-29 04:00] VITALS: BP 146/85
[2019-11-29] MEDS: NovoLOG Insulin Flexpen SUBQ SCH ×4 (05:34→21:00)
[2019-11-29] MEDS: Nateglinide 60mg tab ORAL SCH ×3 (05:51→16:44)
--- NOTE | 2019-11-29 06:09 | General Progress Note ---
Assessment/Plan Problem List: (1) Diabetes mellitus ICD Codes: E11.9 - Type 2 diabetes mellitus without complications SNOMED: 39332641 (2) NSTEMI (non-ST elevated myocardial infarction) ICD Codes: I21.4 - Non-ST elevation (NSTEMI) myocardial infarction SNOMED: 66388055 (3) Hypoglycemia ICD Codes: E16.2 - Hypoglycemia, unspecified SNOMED: 819330832 (4) COVID-19 ICD Codes: U07.1 - COVID-19 SNOMED: 018475090 (5) Pneumonia ICD Codes: J18.9 - Pneumonia, unspecified organism SNOMED: 029020225 (6) UTI (urinary tract infection) ICD Codes: N39.0 - Urinary tract infection, site not specified SNOMED: 19529665 Status: progressing, unchanged Assessment/Plan: continue Januvia 100 mg daily continue Starlix 60 mg ac tid continue Novolog sliding scale ac / hs hypoglycemia protocol in order Subjective Allergies: Coded Allergies: No Known Allergies (Unverified , 11/19/19) All Systems: reviewed and negative except above Subjective events noted interval notes reviewed glucose values improved Item Value Date Time Bedside Blood Glucose 127 mg/dl H 11/29/19 0554 Bedside Blood Glucose 246 mg/dl H 11/28/19 2145 Bedside Blood Glucose 168 11/28/19 1630 Bedside Blood Glucose 168 mg/dl H 11/28/19 1305 Objective Last 24 Hour Vital Signs Date Time Temp Pulse Resp B/P (MAP) Pulse Ox O2 Delivery O2 Flow Rate FiO2 11/29/19 04:00 97.3 63 19 146/85 (105) 98 11/29/19 00:00 98.2 76 20 152/72 (98) 97 11/28/19 21:00 Room Air 11/28/19 21:00 55 121/78 11/28/19 20:00 97.3 55 19 121/78 (92) 98 11/28/19 16:00 98.3 70 20 137/82 (100) 97 11/28/19 12:00 98.0 65 20 135/79 (97) 98 11/28/19 10:38 61 144/80 11/28/19 09:00 Room Air 11/28/19 08:00 97.8 61 19 144/80 (101) 99 Intake and Output 11/28/19 11/29/19 19:00 07:00 Intake Total 860 ml Output Total 800 ml Balance 60 ml Intake Oral 860 ml Output Urine Total 800 ml # Bowel Movements 2 Laboratory Tests 11/28/19 10:49: POC Whole Blood Glucose 168H 11/28/19 14:00: Stool Occult Blood [Pending] Height (Feet): 5 Height (Inches): 10.00 Weight (Pounds): 133 General Appearance: no apparent distress Neck: normal alignment Cardiovascular: normal peripheral pulses Respiratory/Chest: lungs clear Abdomen: normal bowel sounds Objective Current Medications Medications (Trade) Dose Ordered Sig/Jose Route PRN Reason Start Time Stop Time Status Last Admin Dose Admin Acetaminophen (Tylenol) 650 mg Q6H PRN ORAL mod pain/temp 101 or greater 11/26/19 05:18 12/19/19 05:17 Aspirin (ASA) 81 mg DAILY ORAL 11/26/19 09:00 01/04/20 08:59 11/28/19 10:38 Atorvastatin Calcium (Lipitor) 10 mg DAILY ORAL 11/26/19 09:00 02/19/20 08:59 11/28/19 10:38 Dextrose (Dextrose 50%) 25 ml Q30M PRN IV Hypoglycemia 11/26/19 05:30 02/18/20 19:59 Dextrose (Dextrose 50%) 50 ml Q30M PRN IV Hypoglycemia 11/26/19 05:30 02/18/20 19:59 Enoxaparin Sodium (Lovenox) 40 mg DAILY SUBQ 11/26/19 09:00 02/19/20 08:59 11/28/19 10:39 Haloperidol Lactate (Haldol) 5 mg Q6H PRN IM Agitation 11/26/19 06:45 01/06/20 00:44 Insulin Aspart (NovoLOG) BEFORE MEALS AND HS SUBQ 11/26/19 06:30 02/18/20 20:59 11/28/19 21:00 Metoprolol Tartrate (Lopressor) 12.5 mg EVERY 12 HOURS ORAL 11/26/19 09:00 02/18/20 20:59 11/28/19 10:38 Nateglinide (Starlix) 60 mg TIAC ORAL 11/26/19 06:30 12/21/19 16:29 11/29/19 05:51 Olanzapine (ZyPREXA) 2.5 mg BEDTIME ORAL 11/26/19 21:00 01/06/20 20:59 11/28/19 21:30 Sitagliptin Phosphate (Januvia) 100 mg ACBREAKFAST ORAL 11/26/19 06:30 12/21/19 14:59 11/29/19 05:52 Vinicius Gunter MD Nov 29, 2019 06:09
[2019-11-29 08:00] VITALS: BP 139/82
--- NOTE | 2019-11-29 08:05 | Hematology/Onc Progress Note ---
Assessment/Plan Assessment/Plan Assessment/Plan # Anemia of chronic disease due to underlying chronic medical issues, multifactorial v Gi bleed --> Anemia workup has been ordered, rule out gi bleed --> No evidence of hemolysis is noted, peripheral smear has been reviewed. --> Hgb goal >7. Transfuse prn. --> Epogen or iron at this time is not particularly indicated --> Medications have been reviewed --> low threshold for gi evaluation in case has occult + --> hgb 9.2-->9.3 # Coagulopathy is likely due to COVID 19 pna --> as per id abx --> initially was on abx --> now off them --> mixing study if doesn't improve and repeats inr/ptt are elev # Troponin elevation 0.2 and 0.145 and inferolateral ischemia. Echo ef 65% --> On aspirin, Metoprolol 12.5 bid and Lipitor 10 daily --> Stress test after Covid negative --> per Dr. Garcia # Uncontrolled diabetes. # Hypertension, On Lopressor # History of CVA. # Dvt ppx lovenox sq The timing of this note does not necessarily reflect the time of the patient was seen. Greatly appreciate consultation. Subjective Constitutional: Denies: no symptoms, chills, fever, malaise, weakness, other HEENT: Denies: no symptoms, eye pain, blurred vision, tearing, double vision, ear pain, ear discharge, nose pain, nose congestion, throat pain, throat swelling, mouth pain, mouth swelling, other Cardiovascular: Denies: no symptoms, chest pain, edema, irregular heart rate, lightheadedness, palpitations, syncope, other Respiratory: Denies: no symptoms, cough, shortness of breath, SOB with excertion, SOB at rest, sputum, wheezing, other Gastrointestinal/Abdominal: Denies: no symptoms, abdomen distended, abdominal pain, black stools, tarry stools, blood in stool, constipated, diarrhea, difficulty swallowing, nausea, poor appetite, poor fluid intake, rectal bleeding , vomiting, other Genitourinary: Denies: no symptoms, burning, discharge, frequency, flank pain, hematuria, incontinence, pain, urgency, other Neurologic/Psychiatric: Denies: no symptoms, anxiety, depressed, emotional problems, headache, numbness, paresthesia, pre-existing deficit, seizure, tingling, tremors, weakness, other Endocrine: Denies: no symptoms, excessive sweating, flushing, intolerance to cold, intolerance to heat, increased hunger, increased thirst, increased urine, unexplained weight gain, unexplained weight loss, other Allergies: Coded Allergies: No Known Allergies (Unverified , 11/19/19) Subjective 11/24 labs are noted, off abx for covid 19, meds reivewed, MED RECON completed 11/25 labs are noted, no bleeding, remains agitated during exam, no other changes , on ra 11/27 has continued to refuse labs, and noncompliant with meds, no bleeding noted 11/28 labs are noted, no bleeding, pending placement, dw rn Objective Objective Current Medications Medications (Trade) Dose Ordered Sig/Jose Route PRN Reason Start Time Stop Time Status Last Admin Dose Admin Acetaminophen (Tylenol) 650 mg Q6H PRN ORAL mod pain/temp 101 or greater 11/26/19 05:18 12/19/19 05:17 Aspirin (ASA) 81 mg DAILY ORAL 11/26/19 09:00 01/04/20 08:59 11/28/19 10:38 Atorvastatin Calcium (Lipitor) 10 mg DAILY ORAL 11/26/19 09:00 02/19/20 08:59 11/28/19 10:38 Dextrose (Dextrose 50%) 25 ml Q30M PRN IV Hypoglycemia 11/26/19 05:30 02/18/20 19:59 Dextrose (Dextrose 50%) 50 ml Q30M PRN IV Hypoglycemia 11/26/19 05:30 02/18/20 19:59 Enoxaparin Sodium (Lovenox) 40 mg DAILY SUBQ 11/26/19 09:00 02/19/20 08:59 11/28/19 10:39 Haloperidol Lactate (Haldol) 5 mg Q6H PRN IM Agitation 11/26/19 06:45 01/06/20 00:44 Insulin Aspart (NovoLOG) BEFORE MEALS AND HS SUBQ 11/26/19 06:30 02/18/20 20:59 11/28/19 21:00 Metoprolol Tartrate (Lopressor) 12.5 mg EVERY 12 HOURS ORAL 11/26/19 09:00 02/18/20 20:59 11/28/19 10:38 Nateglinide (Starlix) 60 mg TIAC ORAL 11/26/19 06:30 12/21/19 16:29 11/29/19 05:51 Olanzapine (ZyPREXA) 2.5 mg BEDTIME ORAL 11/26/19 21:00 01/06/20 20:59 11/28/19 21:30 Sitagliptin Phosphate (Januvia) 100 mg ACBREAKFAST ORAL 11/26/19 06:30 12/21/19 14:59 11/29/19 05:52 Last 24 Hour Vital Signs Date Time Temp Pulse Resp B/P (MAP) Pulse Ox O2 Delivery O2 Flow Rate FiO2 11/29/19 04:00 97.3 63 19 146/85 (105) 98 11/29/19 00:00 98.2 76 20 152/72 (98) 97 11/28/19 21:00 Room Air 11/28/19 21:00 55 121/78 11/28/19 20:00 97.3 55 19 121/78 (92) 98 11/28/19 16:00 98.3 70 20 137/82 (100) 97 11/28/19 12:00 98.0 65 20 135/79 (97) 98 11/28/19 10:38 61 144/80 11/28/19 09:00 Room Air 11/28/19 08:00 97.8 61 19 144/80 (101) 99 11/28/19 04:00 97.5 57 19 157/77 (103) 98 11/28/19 00:00 97.3 53 19 126/59 (81) 94 11/27/19 21:14 57 137/66 11/27/19 20:42 Room Air 11/27/19 20:00 97.8 57 19 137/66 (89) 96 11/27/19 16:00 98.6 62 20 145/73 (97) 95 11/27/19 12:00 98.2 59 20 158/68 (98) 95 Intake and Output 11/28/19 11/29/19 19:00 07:00 Intake Total 860 ml Output Total 800 ml 300 ml Balance 60 ml -300 ml Intake Oral 860 ml Output Urine Total 800 ml 300 ml # Bowel Movements 2 Labs Test 11/28/19 10:49 11/28/19 14:00 11/29/19 07:35 POC Whole Blood Glucose 168 MG/DL (74-106) Height (Feet): 5 Height (Inches): 10.00 Weight (Pounds): 133 Objective Physical Exam: Vitals: reviewed General: NAD HEENT: nc, at Neck: supple Chest: clear breath sounds bilaterally Cardiovascular: RRR, no s3, s4 Abdomen: soft, nontender, nd Extremities: no cce, normal range of motion Neuro: alert and oriented Alexander Mcnair MD Nov 29, 2019 08:05
[2019-11-29 08:08] LABS: BASOPHILS % (AUTO) 2.5 % (0.0-2.0); EOSINOPHILS % (AUTO) 0.8 % (0.0-3.0); HEMATOCRIT 30.1 % (42.0-52.0); HEMOGLOBIN 9.9 G/DL (14.2-18.0); LYMPHOCYTES % (AUTO) 26.3 % (20.0-45.0); MEAN CORPUSCULAR VOLUME 86 FL (80-99); MONOCYTES % (AUTO) 8.4 % (1.0-10.0); PLATELET COUNT 322 K/UL (150-450); RED BLOOD COUNT 3.51 M/UL (4.70-6.10); RED CELL DISTRIBUTION WIDTH 12.4 % (11.6-14.8); WHITE BLOOD COUNT 7.3 K/UL (4.8-10.8)
--- NOTE | 2019-11-29 09:44 | Pulmonology Progress Note ---
Subjective ROS Limited/Unobtainable: Yes Interval Events: None new Constitutional: Denies: fever HEENT: Repors: no symptoms Respiratory: Reports: dry cough Cardiovascular: Reports: no symptoms Gastrointestinal/Abdominal: Reports: no symptoms Psychiatric: Reports: other - refuses medications Allergies: Coded Allergies: No Known Allergies (Unverified , 11/19/19) All Systems: reviewed and negative except above Objective Last 24 Hour Vital Signs Date Time Temp Pulse Resp B/P (MAP) Pulse Ox O2 Delivery O2 Flow Rate FiO2 11/29/19 08:00 97.8 64 20 139/82 (101) 97 11/29/19 04:00 97.3 63 19 146/85 (105) 98 11/29/19 00:00 98.2 76 20 152/72 (98) 97 11/28/19 21:00 Room Air 11/28/19 21:00 55 121/78 11/28/19 20:00 97.3 55 19 121/78 (92) 98 11/28/19 16:00 98.3 70 20 137/82 (100) 97 11/28/19 12:00 98.0 65 20 135/79 (97) 98 11/28/19 10:38 61 144/80 Intake and Output 11/28/19 11/29/19 19:00 07:00 Intake Total 860 ml Output Total 800 ml 300 ml Balance 60 ml -300 ml Intake Oral 860 ml Output Urine Total 800 ml 300 ml # Bowel Movements 2 General Appearance: no acute distress HEENT: normocephalic Respiratory: chest wall non-tender, lungs clear Cardiovascular: normal peripheral pulses, normal rate Abdomen: normal bowel sounds Laboratory Tests 11/28/19 10:49: POC Whole Blood Glucose 168H 11/28/19 14:00: Stool Occult Blood [Pending] 11/29/19 07:35: White Blood Count 7.3, Red Blood Count 3.51L, Hemoglobin 9.9L, Hematocrit 30.1L , Mean Corpuscular Volume 86, Mean Corpuscular Hemoglobin 28.3, Mean Corpuscular Hemoglobin Concent 33.0, Red Cell Distribution Width 12.4, Platelet Count 322, Mean Platelet Volume 7.0, Neutrophils (%) (Auto) 62.0, Lymphocytes (% ) (Auto) 26.3, Monocytes (%) (Auto) 8.4, Eosinophils (%) (Auto) 0.8, Basophils ( %) (Auto) 2.5H Current Medications Medications (Trade) Dose Ordered Sig/Jose Route PRN Reason Start Time Stop Time Status Last Admin Dose Admin Acetaminophen (Tylenol) 650 mg Q6H PRN ORAL mod pain/temp 101 or greater 11/26/19 05:18 12/19/19 05:17 Aspirin (ASA) 81 mg DAILY ORAL 11/26/19 09:00 01/04/20 08:59 11/28/19 10:38 Atorvastatin Calcium (Lipitor) 10 mg DAILY ORAL 11/26/19 09:00 02/19/20 08:59 11/28/19 10:38 Dextrose (Dextrose 50%) 25 ml Q30M PRN IV Hypoglycemia 11/26/19 05:30 02/18/20 19:59 Dextrose (Dextrose 50%) 50 ml Q30M PRN IV Hypoglycemia 11/26/19 05:30 02/18/20 19:59 Enoxaparin Sodium (Lovenox) 40 mg DAILY SUBQ 11/26/19 09:00 02/19/20 08:59 11/28/19 10:39 Haloperidol Lactate (Haldol) 5 mg Q6H PRN IM Agitation 11/26/19 06:45 01/06/20 00:44 Insulin Aspart (NovoLOG) BEFORE MEALS AND HS SUBQ 11/26/19 06:30 02/18/20 20:59 11/28/19 21:00 Metoprolol Tartrate (Lopressor) 12.5 mg EVERY 12 HOURS ORAL 11/26/19 09:00 02/18/20 20:59 11/28/19 10:38 Nateglinide (Starlix) 60 mg TIAC ORAL 11/26/19 06:30 12/21/19 16:29 11/29/19 05:51 Olanzapine (ZyPREXA) 2.5 mg BEDTIME ORAL 11/26/19 21:00 01/06/20 20:59 11/28/19 21:30 Sitagliptin Phosphate (Januvia) 100 mg ACBREAKFAST ORAL 11/26/19 06:30 12/21/19 14:59 11/29/19 05:52 Assessment/Plan Assessment/Plan IMPRESSION: 1. COVID19 pneumonia. 2. Hypoglycemia. 3. Diabetes mellitus. 4. Hypertension. 5. CVA. DISCUSSION: Continue medications I will follow carefully. Saturating well on RA Dc planning Cesar Hancock Omar Syed MD Nov 29, 2019 09:44
[2019-11-29] MEDS: Aspirin Baby 81mg ORAL SCH (09:58)
[2019-11-29] MEDS: Metoprolol Tartrate 12.5mg TAB ORAL SCH ×2 (09:58→21:00)
[2019-11-29] MEDS: Enoxaparin 40mg Inj SUBQ SCH (09:59)
--- NOTE | 2019-11-29 10:12 | Nephrology Progress Note ---
Assessment/Plan Problem List: (1) Electrolyte imbalance Assessment: Hyponatremia (2) Diabetes mellitus (3) Hypoglycemia (4) COVID-19 (5) Pneumonia (6) UTI (urinary tract infection) (7) NSTEMI (non-ST elevated myocardial infarction) Assessment Hyponatremia likely depletional Diabetes mellitus, with periodic hypoglycemia Non-STEMI COVID-19, pneumonia UTI Hypertension Previous CVA Plan November 28: Today's can panel pending. Otherwise unchanged. November 27: Patient refuses labs and blood sugar check, and has pulled out IV previously. He also refuses PO meds, periodically. RN states that the patient takes p.o. but not fully. Continue per psych advice and management. November 26: No blood drawn yet. Stable clinically. November 25: Patient refused blood draw today. Clinically stable. November 24: No labs done again today. Clinically stable. November 23: No labs done today. Clinically stable. Continue per consultants. November 22: Labs reviewed. Renal parameters stable. Magnesium slightly low. IV magnesium ordered. Continue per consultants. November 21: No labs available. Physical examination and vital signs are all okay. Psychiatric evaluation noted and appreciated. Patient lacks capacity to make decisions and refuse labs. Patient been refusing blood draw and taking medication today according to the RN Keep the blood pressure and blood sugar in check as possible Slow hydrate Monitor electrolytes Per consultants Subjective ROS Limited/Unobtainable: No Constitutional: Reports: weakness Objective Objective Last 24 Hour Vital Signs Date Time Temp Pulse Resp B/P (MAP) Pulse Ox O2 Delivery O2 Flow Rate FiO2 11/29/19 09:58 64 139/82 11/29/19 08:00 97.8 64 20 139/82 (101) 97 11/29/19 04:00 97.3 63 19 146/85 (105) 98 11/29/19 00:00 98.2 76 20 152/72 (98) 97 11/28/19 21:00 Room Air 11/28/19 21:00 55 121/78 11/28/19 20:00 97.3 55 19 121/78 (92) 98 11/28/19 16:00 98.3 70 20 137/82 (100) 97 11/28/19 12:00 98.0 65 20 135/79 (97) 98 11/28/19 10:38 61 144/80 Intake and Output 11/28/19 11/29/19 19:00 07:00 Intake Total 860 ml Output Total 800 ml 300 ml Balance 60 ml -300 ml Intake Oral 860 ml Output Urine Total 800 ml 300 ml # Bowel Movements 2 Laboratory Tests 11/28/19 10:49: POC Whole Blood Glucose 168H 11/28/19 14:00: Stool Occult Blood [Pending] 11/29/19 07:35: White Blood Count 7.3, Red Blood Count 3.51L, Hemoglobin 9.9L, Hematocrit 30.1L , Mean Corpuscular Volume 86, Mean Corpuscular Hemoglobin 28.3, Mean Corpuscular Hemoglobin Concent 33.0, Red Cell Distribution Width 12.4, Platelet Count 322, Mean Platelet Volume 7.0, Neutrophils (%) (Auto) 62.0, Lymphocytes (% ) (Auto) 26.3, Monocytes (%) (Auto) 8.4, Eosinophils (%) (Auto) 0.8, Basophils ( %) (Auto) 2.5H Height (Feet): 5 Height (Inches): 10.00 Weight (Pounds): 133 General Appearance: no apparent distress Objective Unchanged Ilya López MD Nov 29, 2019 10:12
[2019-11-29 10:32] LABS: ALANINE AMINOTRANSFERASE 30 U/L (12-78); ALBUMIN 2.7 G/DL (3.4-5.0); ALBUMIN/GLOBULIN RATIO 0.6 (1.0-2.7); ALKALINE PHOSPHATASE 75 U/L (46-116); ANION GAP 8 mmol/L (5-15); ASPARTATE AMINO TRANSFERASE 20 U/L (15-37); BILIRUBIN,TOTAL 0.5 MG/DL (0.2-1.0); BLOOD UREA NITROGEN 16 mg/dL (7-18); CALCIUM 9.1 MG/DL (8.5-10.1); CARBON DIOXIDE 26 MMOL/L (21-32); CHLORIDE 106 MMOL/L (98-107); PHOSPHORUS 3.2 MG/DL (2.5-4.9); POTASSIUM 4.5 MMOL/L (3.5-5.1); SODIUM 140 MMOL/L (136-145)
--- NOTE | 2019-11-29 10:51 | Infectious Diseases Prog Note ---
Assessment/Plan Assessment/Plan IMPRESSION: COVID-19 disease Diabetes mellitus with hypoglycemia, Hypertension, Anemia, elevation in troponin. RECOMMENDATION: Observe off of antibiotic Subjective ROS Limited/Unobtainable: Yes Allergies: Coded Allergies: No Known Allergies (Unverified , 11/19/19) Objective Last 24 Hour Vital Signs Date Time Temp Pulse Resp B/P (MAP) Pulse Ox O2 Delivery O2 Flow Rate FiO2 11/29/19 09:58 64 139/82 11/29/19 08:00 97.8 64 20 139/82 (101) 97 11/29/19 04:00 97.3 63 19 146/85 (105) 98 11/29/19 00:00 98.2 76 20 152/72 (98) 97 11/28/19 21:00 Room Air 11/28/19 21:00 55 121/78 11/28/19 20:00 97.3 55 19 121/78 (92) 98 11/28/19 16:00 98.3 70 20 137/82 (100) 97 11/28/19 12:00 98.0 65 20 135/79 (97) 98 Height (Feet): 5 Height (Inches): 10.00 Weight (Pounds): 133 General Appearance: no acute distress HEENT: mucous membranes moist Respiratory/Chest: no respiratory distress Cardiovascular: normal rate Abdomen: soft, non tender Extremities: no edema Neurologic/Psychiatric: other - sleeping Laboratory Tests Test 11/28/19 14:00 11/29/19 07:35 Stool Occult Blood Pending White Blood Count 7.3 K/UL (4.8-10.8) Red Blood Count 3.51 M/UL (4.70-6.10) L Hemoglobin 9.9 G/DL (14.2-18.0) L Hematocrit 30.1 % (42.0-52.0) L Mean Corpuscular Volume 86 FL (80-99) Mean Corpuscular Hemoglobin 28.3 PG (27.0-31.0) Mean Corpuscular Hemoglobin Concent 33.0 G/DL (32.0-36.0) Red Cell Distribution Width 12.4 % (11.6-14.8) Platelet Count 322 K/UL (150-450) Mean Platelet Volume 7.0 FL (6.5-10.1) Neutrophils (%) (Auto) 62.0 % (45.0-75.0) Lymphocytes (%) (Auto) 26.3 % (20.0-45.0) Monocytes (%) (Auto) 8.4 % (1.0-10.0) Eosinophils (%) (Auto) 0.8 % (0.0-3.0) Basophils (%) (Auto) 2.5 % (0.0-2.0) H Sodium Level 140 MMOL/L (136-145) Potassium Level 4.5 MMOL/L (3.5-5.1) Chloride Level 106 MMOL/L (98-107) Carbon Dioxide Level 26 MMOL/L (21-32) Anion Gap 8 mmol/L (5-15) Blood Urea Nitrogen 16 mg/dL (7-18) Creatinine 1.0 MG/DL (0.55-1.30) Estimat Glomerular Filtration Rate > 60 mL/min (>60) Glucose Level 133 MG/DL (74-106) H Calcium Level 9.1 MG/DL (8.5-10.1) Phosphorus Level 3.2 MG/DL (2.5-4.9) Magnesium Level 1.9 MG/DL (1.8-2.4) Total Bilirubin 0.5 MG/DL (0.2-1.0) Aspartate Amino Transf (AST/SGOT) 20 U/L (15-37) Alanine Aminotransferase (ALT/SGPT) 30 U/L (12-78) Alkaline Phosphatase 75 U/L (46-116) Total Protein 7.2 G/DL (6.4-8.2) Albumin 2.7 G/DL (3.4-5.0) L Globulin 4.5 g/dL Albumin/Globulin Ratio 0.6 (1.0-2.7) L Current Medications Medications (Trade) Dose Ordered Sig/Jose Route PRN Reason Start Time Stop Time Status Last Admin Dose Admin Acetaminophen (Tylenol) 650 mg Q6H PRN ORAL mod pain/temp 101 or greater 11/26/19 05:18 12/19/19 05:17 Aspirin (ASA) 81 mg DAILY ORAL 11/26/19 09:00 01/04/20 08:59 11/29/19 09:58 Atorvastatin Calcium (Lipitor) 10 mg DAILY ORAL 11/26/19 09:00 02/19/20 08:59 11/29/19 09:58 Dextrose (Dextrose 50%) 25 ml Q30M PRN IV Hypoglycemia 11/26/19 05:30 02/18/20 19:59 Dextrose (Dextrose 50%) 50 ml Q30M PRN IV Hypoglycemia 11/26/19 05:30 02/18/20 19:59 Enoxaparin Sodium (Lovenox) 40 mg DAILY SUBQ 11/26/19 09:00 02/19/20 08:59 11/29/19 09:59 Haloperidol Lactate (Haldol) 5 mg Q6H PRN IM Agitation 11/26/19 06:45 01/06/20 00:44 Insulin Aspart (NovoLOG) BEFORE MEALS AND HS SUBQ 11/26/19 06:30 02/18/20 20:59 11/28/19 21:00 Metoprolol Tartrate (Lopressor) 12.5 mg EVERY 12 HOURS ORAL 11/26/19 09:00 02/18/20 20:59 11/29/19 09:58 Nateglinide (Starlix) 60 mg TIAC ORAL 11/26/19 06:30 12/21/19 16:29 11/29/19 05:51 Olanzapine (ZyPREXA) 2.5 mg BEDTIME ORAL 11/26/19 21:00 01/06/20 20:59 11/28/19 21:30 Sitagliptin Phosphate (Januvia) 100 mg ACBREAKFAST ORAL 11/26/19 06:30 12/21/19 14:59 11/29/19 05:52 Josh Contreras MD Nov 29, 2019 10:51
[2019-11-29 12:00] VITALS: BP 141/84
--- NOTE | 2019-11-29 12:04 | General Progress Note ---
Assessment/Plan Problem List: (1) FTT (failure to thrive) in adult ICD Codes: R62.7 - Adult failure to thrive SNOMED: 987365679 (2) NSTEMI (non-ST elevated myocardial infarction) ICD Codes: I21.4 - Non-ST elevation (NSTEMI) myocardial infarction SNOMED: 76286394 (3) UTI (urinary tract infection) ICD Codes: N39.0 - Urinary tract infection, site not specified SNOMED: 74981807 Status: progressing, unchanged Assessment/Plan: calorie count swallow eval fu labs consider PEG if needed Subjective ROS Limited/Unobtainable: No Allergies: Coded Allergies: No Known Allergies (Unverified , 11/19/19) Objective Last 24 Hour Vital Signs Date Time Temp Pulse Resp B/P (MAP) Pulse Ox O2 Delivery O2 Flow Rate FiO2 11/29/19 09:58 64 139/82 11/29/19 08:00 97.8 64 20 139/82 (101) 97 11/29/19 04:00 97.3 63 19 146/85 (105) 98 11/29/19 00:00 98.2 76 20 152/72 (98) 97 11/28/19 21:00 Room Air 11/28/19 21:00 55 121/78 11/28/19 20:00 97.3 55 19 121/78 (92) 98 11/28/19 16:00 98.3 70 20 137/82 (100) 97 Intake and Output 11/28/19 11/29/19 19:00 07:00 Intake Total 860 ml Output Total 800 ml 300 ml Balance 60 ml -300 ml Intake Oral 860 ml Output Urine Total 800 ml 300 ml # Bowel Movements 2 Laboratory Tests 11/28/19 14:00: Stool Occult Blood [Pending] 11/29/19 07:35: White Blood Count 7.3, Red Blood Count 3.51L, Hemoglobin 9.9L, Hematocrit 30.1L , Mean Corpuscular Volume 86, Mean Corpuscular Hemoglobin 28.3, Mean Corpuscular Hemoglobin Concent 33.0, Red Cell Distribution Width 12.4, Platelet Count 322, Mean Platelet Volume 7.0, Neutrophils (%) (Auto) 62.0, Lymphocytes (% ) (Auto) 26.3, Monocytes (%) (Auto) 8.4, Eosinophils (%) (Auto) 0.8, Basophils ( %) (Auto) 2.5H, Sodium Level 140, Potassium Level 4.5, Chloride Level 106, Carbon Dioxide Level 26, Anion Gap 8, Blood Urea Nitrogen 16, Creatinine 1.0, Estimat Glomerular Filtration Rate > 60, Glucose Level 133H, Calcium Level 9.1, Phosphorus Level 3.2, Magnesium Level 1.9, Total Bilirubin 0.5, Aspartate Amino Transf (AST/SGOT) 20, Alanine Aminotransferase (ALT/SGPT) 30, Alkaline Phosphatase 75, Total Protein 7.2, Albumin 2.7L, Globulin 4.5, Albumin/Globulin Ratio 0.6L Height (Feet): 5 Height (Inches): 10.00 Weight (Pounds): 133 General Appearance: no apparent distress EENT: PERRL/EOMI Neck: supple Cardiovascular: normal rate Respiratory/Chest: decreased breath sounds Abdomen: normal bowel sounds, non tender, soft Extremities: non-tender Shaun Garrett MD Nov 29, 2019 12:04
--- NOTE | 2019-11-29 14:08 | Cardiac Electrophysiology PN ---
Assessment/Plan Assessment/Plan 1. Troponin elevation 0.2 and 0.145 and inferolateral ischemia. Denies chest pain. On aspirin, Metoprolol 12.5 bid and Lipitor 10 daily if he takes them. Echo EF 65% Stress test after Covid negative if pt agrees as is very noncompliant 2. Positive COVID. 3. Uncontrolled diabetes. 4. Hypertension, On Lopressor 5. History of CVA. 6. Hyperlipidemia on Lipitor DW RN Subjective Subjective In isolation for Covid. Today is refusing to take meds Objective Last 24 Hour Vital Signs Date Time Temp Pulse Resp B/P (MAP) Pulse Ox O2 Delivery O2 Flow Rate FiO2 11/29/19 09:58 64 139/82 11/29/19 08:00 97.8 64 20 139/82 (101) 97 11/29/19 04:00 97.3 63 19 146/85 (105) 98 11/29/19 00:00 98.2 76 20 152/72 (98) 97 11/28/19 21:00 Room Air 11/28/19 21:00 55 121/78 11/28/19 20:00 97.3 55 19 121/78 (92) 98 11/28/19 16:00 98.3 70 20 137/82 (100) 97 Intake and Output 11/28/19 11/29/19 19:00 07:00 Intake Total 860 ml Output Total 800 ml 300 ml Balance 60 ml -300 ml Intake Oral 860 ml Output Urine Total 800 ml 300 ml # Bowel Movements 2 Laboratory Tests Test 11/29/19 07:35 White Blood Count 7.3 K/UL (4.8-10.8) Red Blood Count 3.51 M/UL (4.70-6.10) L Hemoglobin 9.9 G/DL (14.2-18.0) L Hematocrit 30.1 % (42.0-52.0) L Mean Corpuscular Volume 86 FL (80-99) Mean Corpuscular Hemoglobin 28.3 PG (27.0-31.0) Mean Corpuscular Hemoglobin Concent 33.0 G/DL (32.0-36.0) Red Cell Distribution Width 12.4 % (11.6-14.8) Platelet Count 322 K/UL (150-450) Mean Platelet Volume 7.0 FL (6.5-10.1) Neutrophils (%) (Auto) 62.0 % (45.0-75.0) Lymphocytes (%) (Auto) 26.3 % (20.0-45.0) Monocytes (%) (Auto) 8.4 % (1.0-10.0) Eosinophils (%) (Auto) 0.8 % (0.0-3.0) Basophils (%) (Auto) 2.5 % (0.0-2.0) H Sodium Level 140 MMOL/L (136-145) Potassium Level 4.5 MMOL/L (3.5-5.1) Chloride Level 106 MMOL/L (98-107) Carbon Dioxide Level 26 MMOL/L (21-32) Anion Gap 8 mmol/L (5-15) Blood Urea Nitrogen 16 mg/dL (7-18) Creatinine 1.0 MG/DL (0.55-1.30) Estimat Glomerular Filtration Rate > 60 mL/min (>60) Glucose Level 133 MG/DL (74-106) H Calcium Level 9.1 MG/DL (8.5-10.1) Phosphorus Level 3.2 MG/DL (2.5-4.9) Magnesium Level 1.9 MG/DL (1.8-2.4) Total Bilirubin 0.5 MG/DL (0.2-1.0) Aspartate Amino Transf (AST/SGOT) 20 U/L (15-37) Alanine Aminotransferase (ALT/SGPT) 30 U/L (12-78) Alkaline Phosphatase 75 U/L (46-116) Total Protein 7.2 G/DL (6.4-8.2) Albumin 2.7 G/DL (3.4-5.0) L Globulin 4.5 g/dL Albumin/Globulin Ratio 0.6 (1.0-2.7) L Objective HEAD AND NECK: No JVD. LUNGS: Coarse rhonchi. CARDIOVASCULAR: Regular S1 and S2 with no gallop or murmur. ABDOMEN: Soft. EXTREMITIES: No pitting edema. Sean Garcia MD Nov 29, 2019 14:08
[2019-11-29 16:00] VITALS: BP 132/64
[2019-11-29] MEDS: OLANZapine 2.5mg tab ORAL SCH (21:00)
--- NOTE | 2019-11-29 21:10 | General Progress Note ---
Assessment/Plan Problem List: (1) COVID-19 ICD Codes: U07.1 - COVID-19 SNOMED: 462820134 (2) Pneumonia ICD Codes: J18.9 - Pneumonia, unspecified organism SNOMED: 301688582 (3) UTI (urinary tract infection) ICD Codes: N39.0 - Urinary tract infection, site not specified SNOMED: 48264112 (4) Diabetes mellitus ICD Codes: E11.9 - Type 2 diabetes mellitus without complications SNOMED: 64724382 (5) Hypoglycemia ICD Codes: E16.2 - Hypoglycemia, unspecified SNOMED: 251081516 (6) NSTEMI (non-ST elevated myocardial infarction) ICD Codes: I21.4 - Non-ST elevation (NSTEMI) myocardial infarction SNOMED: 18232754 (7) Electrolyte imbalance ICD Codes: E87.8 - Other disorders of electrolyte and fluid balance, not elsewhere classified SNOMED: 342944690 Status: progressing, unchanged Assessment/Plan: psych patient reviewed chart and labs afebrile covid pna uti improving Subjective ROS Limited/Unobtainable: Yes Allergies: Coded Allergies: No Known Allergies (Unverified , 11/19/19) Objective Last 24 Hour Vital Signs Date Time Temp Pulse Resp B/P (MAP) Pulse Ox O2 Delivery O2 Flow Rate FiO2 11/29/19 16:00 97.9 60 18 132/64 (86) 96 11/29/19 12:00 98.0 68 20 141/84 (103) 97 11/29/19 09:58 64 139/82 11/29/19 09:00 Room Air 11/29/19 08:00 97.8 64 20 139/82 (101) 97 11/29/19 04:00 97.3 63 19 146/85 (105) 98 11/29/19 00:00 98.2 76 20 152/72 (98) 97 Intake and Output 11/28/19 11/29/19 19:00 07:00 Intake Total 860 ml Output Total 800 ml 300 ml Balance 60 ml -300 ml Intake Oral 860 ml Output Urine Total 800 ml 300 ml # Bowel Movements 2 Laboratory Tests 11/29/19 07:35: White Blood Count 7.3, Red Blood Count 3.51L, Hemoglobin 9.9L, Hematocrit 30.1L , Mean Corpuscular Volume 86, Mean Corpuscular Hemoglobin 28.3, Mean Corpuscular Hemoglobin Concent 33.0, Red Cell Distribution Width 12.4, Platelet Count 322, Mean Platelet Volume 7.0, Neutrophils (%) (Auto) 62.0, Lymphocytes (% ) (Auto) 26.3, Monocytes (%) (Auto) 8.4, Eosinophils (%) (Auto) 0.8, Basophils ( %) (Auto) 2.5H, Sodium Level 140, Potassium Level 4.5, Chloride Level 106, Carbon Dioxide Level 26, Anion Gap 8, Blood Urea Nitrogen 16, Creatinine 1.0, Estimat Glomerular Filtration Rate > 60, Glucose Level 133H, Calcium Level 9.1, Phosphorus Level 3.2, Magnesium Level 1.9, Total Bilirubin 0.5, Aspartate Amino Transf (AST/SGOT) 20, Alanine Aminotransferase (ALT/SGPT) 30, Alkaline Phosphatase 75, Total Protein 7.2, Albumin 2.7L, Globulin 4.5, Albumin/Globulin Ratio 0.6L Height (Feet): 5 Height (Inches): 10.00 Weight (Pounds): 133 Sharon Dobson MD Nov 29, 2019 21:10
--- NOTE | 2019-11-29 23:32 | Psych Consult Progress Note ---
Psychiatry Progress Note Psychiatry Progress Note Subjective the pt is easily agitated Medications Current Medications Medications (Trade) Dose Ordered Sig/Jose Route PRN Reason Start Time Stop Time Status Last Admin Dose Admin Acetaminophen (Tylenol) 650 mg Q6H PRN ORAL mod pain/temp 101 or greater 11/26/19 05:18 12/19/19 05:17 Aspirin (ASA) 81 mg DAILY ORAL 11/26/19 09:00 01/04/20 08:59 11/29/19 09:58 Atorvastatin Calcium (Lipitor) 10 mg DAILY ORAL 11/26/19 09:00 02/19/20 08:59 11/29/19 09:58 Dextrose (Dextrose 50%) 25 ml Q30M PRN IV Hypoglycemia 11/26/19 05:30 02/18/20 19:59 Dextrose (Dextrose 50%) 50 ml Q30M PRN IV Hypoglycemia 11/26/19 05:30 02/18/20 19:59 Enoxaparin Sodium (Lovenox) 40 mg DAILY SUBQ 11/26/19 09:00 02/19/20 08:59 11/29/19 09:59 Haloperidol Lactate (Haldol) 5 mg Q6H PRN IM Agitation 11/26/19 06:45 01/06/20 00:44 Insulin Aspart (NovoLOG) BEFORE MEALS AND HS SUBQ 11/26/19 06:30 02/18/20 20:59 11/28/19 21:00 Metoprolol Tartrate (Lopressor) 12.5 mg EVERY 12 HOURS ORAL 11/26/19 09:00 02/18/20 20:59 11/29/19 09:58 Nateglinide (Starlix) 60 mg TIAC ORAL 11/26/19 06:30 12/21/19 16:29 11/29/19 16:44 Olanzapine (ZyPREXA) 2.5 mg BEDTIME ORAL 11/26/19 21:00 01/06/20 20:59 11/28/19 21:30 Sitagliptin Phosphate (Januvia) 100 mg ACBREAKFAST ORAL 11/26/19 06:30 12/21/19 14:59 11/29/19 05:52 Neurological/Psychiatric: Denies: no symptoms, anxiety, depressed, emotional problems, headache, numbness, paresthesia, pre-existing deficit, seizure, tingling, tremors, weakness, other Allergies: Coded Allergies: No Known Allergies (Unverified , 11/19/19) Objective Data Height (Feet): 5 Height (Inches): 10.00 Weight (Pounds): 133 General Appearance: no apparent distress Additional Comments: awake, disoriented. Mood is anxious. Affect is blunted. Thought process is concrete. Thought content, no suicidal or homicidal ideation. Cognition is impaired. Insight and judgment impaired. Assessment/Plan Pitcher I: ASSESSMENT: AXIS I: Vascular dementia. Rule out acute encephalopathy. AXIS II: Deferred. AXIS III: COVID-19. AXIS IV: Low. AXIS V: 20. PLAN: 1. The patient lacks capacity to refuse procedures and labs. 2. Suggestive the Haldol prior to the lab draw and place the patient on bilateral restraints. Status: progressing, unchanged Status Narrative ASSESSMENT: AXIS I: Vascular dementia. Rule out acute encephalopathy. AXIS II: Deferred. AXIS III: COVID-19. AXIS IV: Low. AXIS V: 20. PLAN: 1. The patient lacks capacity to refuse procedures and labs. 2. Suggestive the Haldol prior to the lab draw and place the patient on bilateral restraints. Assessment/Plan: ASSESSMENT: AXIS I: Vascular dementia. Rule out acute encephalopathy. AXIS II: Deferred. AXIS III: COVID-19. AXIS IV: Low. AXIS V: 20. PLAN: 1. The patient lacks capacity to refuse procedures and labs. 2. Suggestive the Haldol prior to the lab draw and place the patient on bilateral restraints. Reno Gooden MD Nov 29, 2019 23:32
[2019-11-30] MEDS: NovoLOG Insulin Flexpen SUBQ SCH ×4 (05:53→21:35)
[2019-11-30] MEDS: Nateglinide 60mg tab ORAL SCH ×3 (05:53→16:30)
--- NOTE | 2019-11-30 06:17 | General Progress Note ---
Assessment/Plan Problem List: (1) Diabetes mellitus ICD Codes: E11.9 - Type 2 diabetes mellitus without complications SNOMED: 38831291 (2) NSTEMI (non-ST elevated myocardial infarction) ICD Codes: I21.4 - Non-ST elevation (NSTEMI) myocardial infarction SNOMED: 08791653 (3) Hypoglycemia ICD Codes: E16.2 - Hypoglycemia, unspecified SNOMED: 347536270 (4) COVID-19 ICD Codes: U07.1 - COVID-19 SNOMED: 799186294 (5) Pneumonia ICD Codes: J18.9 - Pneumonia, unspecified organism SNOMED: 244262307 (6) UTI (urinary tract infection) ICD Codes: N39.0 - Urinary tract infection, site not specified SNOMED: 08140975 Status: progressing, unchanged Assessment/Plan: continue Januvia 100 mg daily continue Starlix 60 mg ac tid continue Novolog sliding scale ac / hs hypoglycemia protocol in order Subjective ROS Limited/Unobtainable: Yes Allergies: Coded Allergies: No Known Allergies (Unverified , 11/19/19) Subjective events noted interval notes reviewed refused glucose check and diabetic medications yesterday Item Value Date Time Bedside Blood Glucose 127 mg/dl H 11/29/19 0554 Glucose Level 133 MG/DL H 11/29/19 0735 Objective Last 24 Hour Vital Signs Date Time Temp Pulse Resp B/P (MAP) Pulse Ox O2 Delivery O2 Flow Rate FiO2 11/29/19 21:00 Room Air 11/29/19 16:00 97.9 60 18 132/64 (86) 96 11/29/19 12:00 98.0 68 20 141/84 (103) 97 11/29/19 09:58 64 139/82 11/29/19 09:00 Room Air 11/29/19 08:00 97.8 64 20 139/82 (101) 97 Intake and Output 11/29/19 11/30/19 19:00 07:00 Intake Total 600 ml Output Total 800 ml Balance -200 ml Intake Oral 600 ml Output Urine Total 800 ml # Bowel Movements 1 Laboratory Tests 11/29/19 07:35: White Blood Count 7.3, Red Blood Count 3.51L, Hemoglobin 9.9L, Hematocrit 30.1L , Mean Corpuscular Volume 86, Mean Corpuscular Hemoglobin 28.3, Mean Corpuscular Hemoglobin Concent 33.0, Red Cell Distribution Width 12.4, Platelet Count 322, Mean Platelet Volume 7.0, Neutrophils (%) (Auto) 62.0, Lymphocytes (% ) (Auto) 26.3, Monocytes (%) (Auto) 8.4, Eosinophils (%) (Auto) 0.8, Basophils ( %) (Auto) 2.5H, Sodium Level 140, Potassium Level 4.5, Chloride Level 106, Carbon Dioxide Level 26, Anion Gap 8, Blood Urea Nitrogen 16, Creatinine 1.0, Estimat Glomerular Filtration Rate > 60, Glucose Level 133H, Calcium Level 9.1, Phosphorus Level 3.2, Magnesium Level 1.9, Total Bilirubin 0.5, Aspartate Amino Transf (AST/SGOT) 20, Alanine Aminotransferase (ALT/SGPT) 30, Alkaline Phosphatase 75, Total Protein 7.2, Albumin 2.7L, Globulin 4.5, Albumin/Globulin Ratio 0.6L Height (Feet): 5 Height (Inches): 10.00 Weight (Pounds): 133 General Appearance: no apparent distress Neck: normal alignment Cardiovascular: normal rate Abdomen: normal bowel sounds Objective Current Medications Medications (Trade) Dose Ordered Sig/Jose Route PRN Reason Start Time Stop Time Status Last Admin Dose Admin Acetaminophen (Tylenol) 650 mg Q6H PRN ORAL mod pain/temp 101 or greater 11/26/19 05:18 12/19/19 05:17 Aspirin (ASA) 81 mg DAILY ORAL 11/26/19 09:00 01/04/20 08:59 11/29/19 09:58 Atorvastatin Calcium (Lipitor) 10 mg DAILY ORAL 11/26/19 09:00 02/19/20 08:59 11/29/19 09:58 Dextrose (Dextrose 50%) 25 ml Q30M PRN IV Hypoglycemia 11/26/19 05:30 02/18/20 19:59 Dextrose (Dextrose 50%) 50 ml Q30M PRN IV Hypoglycemia 11/26/19 05:30 02/18/20 19:59 Enoxaparin Sodium (Lovenox) 40 mg DAILY SUBQ 11/26/19 09:00 02/19/20 08:59 11/29/19 09:59 Haloperidol Lactate (Haldol) 5 mg Q6H PRN IM Agitation 11/26/19 06:45 01/06/20 00:44 Insulin Aspart (NovoLOG) BEFORE MEALS AND HS SUBQ 11/26/19 06:30 02/18/20 20:59 11/28/19 21:00 Metoprolol Tartrate (Lopressor) 12.5 mg EVERY 12 HOURS ORAL 11/26/19 09:00 02/18/20 20:59 11/29/19 09:58 Nateglinide (Starlix) 60 mg TIAC ORAL 11/26/19 06:30 12/21/19 16:29 11/29/19 16:44 Olanzapine (ZyPREXA) 2.5 mg BEDTIME ORAL 11/26/19 21:00 01/06/20 20:59 11/28/19 21:30 Sitagliptin Phosphate (Januvia) 100 mg ACBREAKFAST ORAL 11/26/19 06:30 12/21/19 14:59 11/29/19 05:52 Vinicius Gunter MD Nov 30, 2019 06:17
--- NOTE | 2019-11-30 06:47 | General Progress Note ---
Assessment/Plan Problem List: (1) FTT (failure to thrive) in adult ICD Codes: R62.7 - Adult failure to thrive SNOMED: 251501023 (2) NSTEMI (non-ST elevated myocardial infarction) ICD Codes: I21.4 - Non-ST elevation (NSTEMI) myocardial infarction SNOMED: 19249741 (3) UTI (urinary tract infection) ICD Codes: N39.0 - Urinary tract infection, site not specified SNOMED: 96394094 (4) COVID-19 ICD Codes: U07.1 - COVID-19 SNOMED: 070533604 (5) Diabetes mellitus ICD Codes: E11.9 - Type 2 diabetes mellitus without complications SNOMED: 39746012 Status: progressing, unchanged Assessment/Plan: calorie count swallow eval fu labs patient is non compliance refusing labs and care add marinol up grade diet will fu Subjective Allergies: Coded Allergies: No Known Allergies (Unverified , 11/19/19) Objective Last 24 Hour Vital Signs Date Time Temp Pulse Resp B/P (MAP) Pulse Ox O2 Delivery O2 Flow Rate FiO2 11/29/19 21:00 Room Air 11/29/19 16:00 97.9 60 18 132/64 (86) 96 11/29/19 12:00 98.0 68 20 141/84 (103) 97 11/29/19 09:58 64 139/82 11/29/19 09:00 Room Air 11/29/19 08:00 97.8 64 20 139/82 (101) 97 Intake and Output 11/29/19 11/30/19 19:00 07:00 Intake Total 600 ml Output Total 800 ml 300 ml Balance -200 ml -300 ml Intake Oral 600 ml Output Urine Total 800 ml 300 ml # Bowel Movements 1 Laboratory Tests 11/29/19 07:35: White Blood Count 7.3, Red Blood Count 3.51L, Hemoglobin 9.9L, Hematocrit 30.1L , Mean Corpuscular Volume 86, Mean Corpuscular Hemoglobin 28.3, Mean Corpuscular Hemoglobin Concent 33.0, Red Cell Distribution Width 12.4, Platelet Count 322, Mean Platelet Volume 7.0, Neutrophils (%) (Auto) 62.0, Lymphocytes (% ) (Auto) 26.3, Monocytes (%) (Auto) 8.4, Eosinophils (%) (Auto) 0.8, Basophils ( %) (Auto) 2.5H, Sodium Level 140, Potassium Level 4.5, Chloride Level 106, Carbon Dioxide Level 26, Anion Gap 8, Blood Urea Nitrogen 16, Creatinine 1.0, Estimat Glomerular Filtration Rate > 60, Glucose Level 133H, Calcium Level 9.1, Phosphorus Level 3.2, Magnesium Level 1.9, Total Bilirubin 0.5, Aspartate Amino Transf (AST/SGOT) 20, Alanine Aminotransferase (ALT/SGPT) 30, Alkaline Phosphatase 75, Total Protein 7.2, Albumin 2.7L, Globulin 4.5, Albumin/Globulin Ratio 0.6L Height (Feet): 5 Height (Inches): 10.00 Weight (Pounds): 133 General Appearance: no apparent distress EENT: normal ENT inspection Neck: supple Cardiovascular: normal rate Respiratory/Chest: decreased breath sounds Abdomen: normal bowel sounds, non tender, soft Extremities: non-tender Shaun Garrett MD Nov 30, 2019 06:47
--- NOTE | 2019-11-30 07:40 | Hematology/Onc Progress Note ---
Assessment/Plan Assessment/Plan Assessment/Plan # Anemia of chronic disease due to underlying chronic medical issues, multifactorial v Gi bleed --> Anemia workup has been ordered, rule out gi bleed --> No evidence of hemolysis is noted, peripheral smear has been reviewed. --> Hgb goal >7. Transfuse prn. --> Epogen or iron at this time is not particularly indicated --> Medications have been reviewed --> low threshold for gi evaluation in case has occult + --> hgb 9.2-->9.3 # Coagulopathy is likely due to COVID 19 pna --> as per id abx --> initially was on abx --> now off them --> mixing study if doesn't improve and repeats inr/ptt are elev # Troponin elevation 0.2 and 0.145 and inferolateral ischemia. Echo ef 65% --> On aspirin, Metoprolol 12.5 bid and Lipitor 10 daily --> Stress test after Covid negative --> per Dr. Garcia # Uncontrolled diabetes. # Hypertension, On Lopressor # History of CVA. # Dvt ppx lovenox sq The timing of this note does not necessarily reflect the time of the patient was seen. Greatly appreciate consultation. Subjective Constitutional: Denies: no symptoms, chills, fever, malaise, weakness, other Cardiovascular: Denies: no symptoms, chest pain, edema, irregular heart rate, lightheadedness, palpitations, syncope, other Respiratory: Denies: no symptoms, cough, shortness of breath, SOB with excertion, SOB at rest, sputum, wheezing, other Gastrointestinal/Abdominal: Denies: no symptoms, abdomen distended, abdominal pain, black stools, tarry stools, blood in stool, constipated, diarrhea, difficulty swallowing, nausea, poor appetite, poor fluid intake, rectal bleeding , vomiting, other Genitourinary: Denies: no symptoms, burning, discharge, frequency, flank pain, hematuria, incontinence, pain, urgency, other Neurologic/Psychiatric: Denies: no symptoms, anxiety, depressed, emotional problems, headache, numbness, paresthesia, pre-existing deficit, seizure, tingling, tremors, weakness, other Endocrine: Denies: no symptoms, excessive sweating, flushing, intolerance to cold, intolerance to heat, increased hunger, increased thirst, increased urine, unexplained weight gain, unexplained weight loss, other Allergies: Coded Allergies: No Known Allergies (Unverified , 11/19/19) Subjective 11/24 labs are noted, off abx for covid 19, meds reivewed, MED RECON completed 11/25 labs are noted, no bleeding, remains agitated during exam, no other changes , on ra 11/27 has continued to refuse labs, and noncompliant with meds, no bleeding noted 11/28 labs are noted, no bleeding, pending placement, ene rn 11/29 labs reviewed, no major changes, on marinol as per gi Objective Objective Current Medications Medications (Trade) Dose Ordered Sig/Jose Route PRN Reason Start Time Stop Time Status Last Admin Dose Admin Acetaminophen (Tylenol) 650 mg Q6H PRN ORAL mod pain/temp 101 or greater 11/26/19 05:18 12/19/19 05:17 Aspirin (ASA) 81 mg DAILY ORAL 11/26/19 09:00 01/04/20 08:59 11/29/19 09:58 Atorvastatin Calcium (Lipitor) 10 mg DAILY ORAL 11/26/19 09:00 02/19/20 08:59 11/29/19 09:58 Dextrose (Dextrose 50%) 25 ml Q30M PRN IV Hypoglycemia 11/26/19 05:30 02/18/20 19:59 Dextrose (Dextrose 50%) 50 ml Q30M PRN IV Hypoglycemia 11/26/19 05:30 02/18/20 19:59 Dronabinol (Marinol) 5 mg BID ORAL 11/30/19 09:00 02/28/20 08:59 Enoxaparin Sodium (Lovenox) 40 mg DAILY SUBQ 11/26/19 09:00 02/19/20 08:59 11/29/19 09:59 Haloperidol Lactate (Haldol) 5 mg Q6H PRN IM Agitation 11/26/19 06:45 01/06/20 00:44 Insulin Aspart (NovoLOG) BEFORE MEALS AND HS SUBQ 11/26/19 06:30 02/18/20 20:59 11/28/19 21:00 Metoprolol Tartrate (Lopressor) 12.5 mg EVERY 12 HOURS ORAL 11/26/19 09:00 02/18/20 20:59 8/31/20 09:58 Nateglinide (Starlix) 60 mg TIAC ORAL 11/26/19 06:30 12/21/19 16:29 11/29/19 16:44 Olanzapine (ZyPREXA) 2.5 mg BEDTIME ORAL 11/26/19 21:00 01/06/20 20:59 11/28/19 21:30 Sitagliptin Phosphate (Januvia) 100 mg ACBREAKFAST ORAL 11/26/19 06:30 12/21/19 14:59 11/29/19 05:52 Last 24 Hour Vital Signs Date Time Temp Pulse Resp B/P (MAP) Pulse Ox O2 Delivery O2 Flow Rate FiO2 11/29/19 21:00 Room Air 11/29/19 16:00 97.9 60 18 132/64 (86) 96 11/29/19 12:00 98.0 68 20 141/84 (103) 97 11/29/19 09:58 64 139/82 11/29/19 09:00 Room Air 11/29/19 08:00 97.8 64 20 139/82 (101) 97 11/29/19 04:00 97.3 63 19 146/85 (105) 98 11/29/19 00:00 98.2 76 20 152/72 (98) 97 11/28/19 21:00 Room Air 11/28/19 21:00 55 121/78 11/28/19 20:00 97.3 55 19 121/78 (92) 98 11/28/19 16:00 98.3 70 20 137/82 (100) 97 11/28/19 12:00 98.0 65 20 135/79 (97) 98 11/28/19 10:38 61 144/80 11/28/19 09:00 Room Air 11/28/19 08:00 97.8 61 19 144/80 (101) 99 Intake and Output 11/29/19 11/30/19 19:00 07:00 Intake Total 600 ml Output Total 800 ml 300 ml Balance -200 ml -300 ml Intake Oral 600 ml Output Urine Total 800 ml 300 ml # Bowel Movements 1 Labs Test 11/28/19 10:49 11/28/19 14:00 11/29/19 07:35 POC Whole Blood Glucose 168 MG/DL (74-106) Stool Occult Blood Negative (NEGATIVE) White Blood Count 7.3 K/UL (4.8-10.8) Red Blood Count 3.51 M/UL (4.70-6.10) Hemoglobin 9.9 G/DL (14.2-18.0) Hematocrit 30.1 % (42.0-52.0) Mean Corpuscular Volume 86 FL (80-99) Mean Corpuscular Hemoglobin 28.3 PG (27.0-31.0) Mean Corpuscular Hemoglobin Concent 33.0 G/DL (32.0-36.0) Red Cell Distribution Width 12.4 % (11.6-14.8) Platelet Count 322 K/UL (150-450) Mean Platelet Volume 7.0 FL (6.5-10.1) Neutrophils (%) (Auto) 62.0 % (45.0-75.0) Lymphocytes (%) (Auto) 26.3 % (20.0-45.0) Monocytes (%) (Auto) 8.4 % (1.0-10.0) Eosinophils (%) (Auto) 0.8 % (0.0-3.0) Basophils (%) (Auto) 2.5 % (0.0-2.0) Sodium Level 140 MMOL/L (136-145) Potassium Level 4.5 MMOL/L (3.5-5.1) Chloride Level 106 MMOL/L (98-107) Carbon Dioxide Level 26 MMOL/L (21-32) Anion Gap 8 mmol/L (5-15) Blood Urea Nitrogen 16 mg/dL (7-18) Creatinine 1.0 MG/DL (0.55-1.30) Estimat Glomerular Filtration Rate > 60 mL/min (>60) Glucose Level 133 MG/DL (74-106) Calcium Level 9.1 MG/DL (8.5-10.1) Phosphorus Level 3.2 MG/DL (2.5-4.9) Magnesium Level 1.9 MG/DL (1.8-2.4) Total Bilirubin 0.5 MG/DL (0.2-1.0) Aspartate Amino Transf (AST/SGOT) 20 U/L (15-37) Alanine Aminotransferase (ALT/SGPT) 30 U/L (12-78) Alkaline Phosphatase 75 U/L (46-116) Total Protein 7.2 G/DL (6.4-8.2) Albumin 2.7 G/DL (3.4-5.0) Globulin 4.5 g/dL Albumin/Globulin Ratio 0.6 (1.0-2.7) Height (Feet): 5 Height (Inches): 10.00 Weight (Pounds): 133 Objective Physical Exam: Vitals: reviewed General: NAD HEENT: nc, at Neck: supple Chest: clear breath sounds bilaterally Cardiovascular: RRR, no s3, s4 Abdomen: soft, nontender, nd Extremities: no cce, normal range of motion Neuro: alert and oriented Alexander Mcnair MD Nov 30, 2019 07:40
[2019-11-30] MEDS ORDERED: Dronabinol 2.5mg Cap ORAL SCH (07:45)
[2019-11-30] MEDS: Metoprolol Tartrate 12.5mg TAB ORAL SCH ×2 (09:00→21:23)
[2019-11-30] MEDS: Dronabinol 2.5mg Cap ORAL SCH ×2 (09:00→17:37)
[2019-11-30] MEDS: Aspirin Baby 81mg ORAL SCH (09:00)
[2019-11-30] MEDS: Enoxaparin 40mg Inj SUBQ SCH (09:00)
--- NOTE | 2019-11-30 11:22 | Pulmonology Progress Note ---
Subjective ROS Limited/Unobtainable: Yes Interval Events: None new Constitutional: Denies: fever HEENT: Repors: no symptoms Respiratory: Reports: dry cough Cardiovascular: Reports: no symptoms Gastrointestinal/Abdominal: Reports: no symptoms Psychiatric: Reports: other - refuses medications Allergies: Coded Allergies: No Known Allergies (Unverified , 11/19/19) All Systems: reviewed and negative except above Objective Last 24 Hour Vital Signs Date Time Temp Pulse Resp B/P (MAP) Pulse Ox O2 Delivery O2 Flow Rate FiO2 11/30/19 09:00 Room Air 11/30/19 09:00 65 130/69 11/29/19 21:00 Room Air 11/29/19 16:00 97.9 60 18 132/64 (86) 96 11/29/19 12:00 98.0 68 20 141/84 (103) 97 Intake and Output 11/29/19 11/30/19 19:00 07:00 Intake Total 600 ml Output Total 800 ml 300 ml Balance -200 ml -300 ml Intake Oral 600 ml Output Urine Total 800 ml 300 ml # Bowel Movements 1 General Appearance: no acute distress HEENT: normocephalic Respiratory: chest wall non-tender, lungs clear Cardiovascular: normal peripheral pulses, normal rate Abdomen: normal bowel sounds Current Medications Medications (Trade) Dose Ordered Sig/Jose Route PRN Reason Start Time Stop Time Status Last Admin Dose Admin Acetaminophen (Tylenol) 650 mg Q6H PRN ORAL mod pain/temp 101 or greater 11/26/19 05:18 12/19/19 05:17 Aspirin (ASA) 81 mg DAILY ORAL 11/26/19 09:00 01/04/20 08:59 11/29/19 09:58 Atorvastatin Calcium (Lipitor) 10 mg DAILY ORAL 11/26/19 09:00 02/19/20 08:59 11/29/19 09:58 Dextrose (Dextrose 50%) 25 ml Q30M PRN IV Hypoglycemia 11/26/19 05:30 02/18/20 19:59 Dextrose (Dextrose 50%) 50 ml Q30M PRN IV Hypoglycemia 11/26/19 05:30 02/18/20 19:59 Dronabinol (Marinol) 5 mg BID ORAL 11/30/19 09:00 02/28/20 08:59 Enoxaparin Sodium (Lovenox) 40 mg DAILY SUBQ 11/26/19 09:00 02/19/20 08:59 11/29/19 09:59 Haloperidol Lactate (Haldol) 5 mg Q6H PRN IM Agitation 11/26/19 06:45 01/06/20 00:44 Insulin Aspart (NovoLOG) BEFORE MEALS AND HS SUBQ 11/26/19 06:30 02/18/20 20:59 11/28/19 21:00 Metoprolol Tartrate (Lopressor) 12.5 mg EVERY 12 HOURS ORAL 11/26/19 09:00 02/18/20 20:59 11/29/19 09:58 Nateglinide (Starlix) 60 mg TIAC ORAL 11/26/19 06:30 12/21/19 16:29 11/29/19 16:44 Olanzapine (ZyPREXA) 2.5 mg BEDTIME ORAL 11/26/19 21:00 01/06/20 20:59 11/28/19 21:30 Sitagliptin Phosphate (Januvia) 100 mg ACBREAKFAST ORAL 11/26/19 06:30 12/21/19 14:59 11/29/19 05:52 Assessment/Plan Assessment/Plan IMPRESSION: 1. COVID19 pneumonia. 2. Hypoglycemia. 3. Diabetes mellitus. 4. Hypertension. 5. CVA. DISCUSSION: Continue medications I will follow carefully. Saturating well on RA Dc planning Cesar Hancock Omar Syed MD Nov 30, 2019 11:22
--- NOTE | 2019-11-30 13:00 | Infectious Diseases Prog Note ---
Assessment/Plan Assessment/Plan IMPRESSION: COVID-19 disease Diabetes mellitus with hypoglycemia, Hypertension, Anemia, elevation in troponin. RECOMMENDATION: Observe off of antibiotic Subjective ROS Limited/Unobtainable: Yes Constitutional: Denies: fever Allergies: Coded Allergies: No Known Allergies (Unverified , 11/19/19) Objective Last 24 Hour Vital Signs Date Time Temp Pulse Resp B/P (MAP) Pulse Ox O2 Delivery O2 Flow Rate FiO2 11/30/19 09:00 Room Air 11/30/19 09:00 65 130/69 11/29/19 21:00 Room Air 11/29/19 16:00 97.9 60 18 132/64 (86) 96 Height (Feet): 5 Height (Inches): 10.00 Weight (Pounds): 131 HEENT: mucous membranes moist Respiratory/Chest: no respiratory distress Cardiovascular: normal rate Abdomen: soft, non tender Neurologic/Psychiatric: alert, responsive Current Medications Medications (Trade) Dose Ordered Sig/Jose Route PRN Reason Start Time Stop Time Status Last Admin Dose Admin Acetaminophen (Tylenol) 650 mg Q6H PRN ORAL mod pain/temp 101 or greater 11/26/19 05:18 12/19/19 05:17 Aspirin (ASA) 81 mg DAILY ORAL 11/26/19 09:00 01/04/20 08:59 11/29/19 09:58 Atorvastatin Calcium (Lipitor) 10 mg DAILY ORAL 11/26/19 09:00 02/19/20 08:59 11/29/19 09:58 Dextrose (Dextrose 50%) 25 ml Q30M PRN IV Hypoglycemia 11/26/19 05:30 02/18/20 19:59 Dextrose (Dextrose 50%) 50 ml Q30M PRN IV Hypoglycemia 11/26/19 05:30 02/18/20 19:59 Dronabinol (Marinol) 5 mg BID ORAL 11/30/19 09:00 02/28/20 08:59 Enoxaparin Sodium (Lovenox) 40 mg DAILY SUBQ 11/26/19 09:00 02/19/20 08:59 11/29/19 09:59 Haloperidol Lactate (Haldol) 5 mg Q6H PRN IM Agitation 11/26/19 06:45 01/06/20 00:44 Insulin Aspart (NovoLOG) BEFORE MEALS AND HS SUBQ 11/26/19 06:30 02/18/20 20:59 11/28/19 21:00 Metoprolol Tartrate (Lopressor) 12.5 mg EVERY 12 HOURS ORAL 11/26/19 09:00 02/18/20 20:59 11/29/19 09:58 Nateglinide (Starlix) 60 mg TIAC ORAL 11/26/19 06:30 12/21/19 16:29 11/29/19 16:44 Olanzapine (ZyPREXA) 2.5 mg BEDTIME ORAL 11/26/19 21:00 01/06/20 20:59 11/28/19 21:30 Sitagliptin Phosphate (Januvia) 100 mg ACBREAKFAST ORAL 11/26/19 06:30 12/21/19 14:59 11/29/19 05:52 Josh Contreras MD Nov 30, 2019 13:00
--- NOTE | 2019-11-30 14:06 | Cardiac Electrophysiology PN ---
Assessment/Plan Assessment/Plan 1. Troponin elevation 0.2 and 0.145 and inferolateral ischemia. Denies chest pain. On aspirin, Metoprolol 12.5 bid and Lipitor 10 daily if he takes them. Echo EF 65% Stress test after Covid negative if pt agrees as is very noncompliant 2. Positive COVID. 3. Uncontrolled diabetes. 4. Hypertension, On Lopressor 5. History of CVA. 6. Hyperlipidemia on Lipitor DW RN Subjective Subjective In isolation for Covid. Asking for frech fries! Objective Last 24 Hour Vital Signs Date Time Temp Pulse Resp B/P (MAP) Pulse Ox O2 Delivery O2 Flow Rate FiO2 11/30/19 09:00 Room Air 11/30/19 09:00 65 130/69 11/29/19 21:00 Room Air 11/29/19 16:00 97.9 60 18 132/64 (86) 96 Intake and Output 11/29/19 11/30/19 19:00 07:00 Intake Total 600 ml Output Total 800 ml 300 ml Balance -200 ml -300 ml Intake Oral 600 ml Output Urine Total 800 ml 300 ml # Bowel Movements 1 Objective HEAD AND NECK: No JVD. LUNGS: Coarse rhonchi. CARDIOVASCULAR: Regular S1 and S2 with no gallop or murmur. ABDOMEN: Soft. EXTREMITIES: No pitting edema. Sean Garcia MD Nov 30, 2019 14:06
--- NOTE | 2019-11-30 15:44 | Nephrology Progress Note ---
Assessment/Plan Problem List: (1) Electrolyte imbalance Assessment: Hyponatremia (2) Diabetes mellitus (3) Hypoglycemia (4) COVID-19 (5) Pneumonia (6) UTI (urinary tract infection) (7) NSTEMI (non-ST elevated myocardial infarction) Assessment Hyponatremia likely depletional Diabetes mellitus, with periodic hypoglycemia Non-STEMI COVID-19, pneumonia UTI Hypertension Previous CVA Plan November 29: Can panel from November 28 reviewed. Stable renal parameters. No evidence of dehydration. Blood pressure stable. November 28: Today's can panel pending. Otherwise unchanged. November 27: Patient refuses labs and blood sugar check, and has pulled out IV previously. He also refuses PO meds, periodically. RN states that the patient takes p.o. but not fully. Continue per psych advice and management. November 26: No blood drawn yet. Stable clinically. November 25: Patient refused blood draw today. Clinically stable. November 24: No labs done again today. Clinically stable. November 23: No labs done today. Clinically stable. Continue per consultants. November 22: Labs reviewed. Renal parameters stable. Magnesium slightly low. IV magnesium ordered. Continue per consultants. November 21: No labs available. Physical examination and vital signs are all okay. Psychiatric evaluation noted and appreciated. Patient lacks capacity to make decisions and refuse labs. Patient been refusing blood draw and taking medication today according to the RN Keep the blood pressure and blood sugar in check as possible Slow hydrate Monitor electrolytes Per consultants Subjective ROS Limited/Unobtainable: No Constitutional: Reports: malaise Objective Objective Last 24 Hour Vital Signs Date Time Temp Pulse Resp B/P (MAP) Pulse Ox O2 Delivery O2 Flow Rate FiO2 11/30/19 09:00 Room Air 11/30/19 09:00 65 130/69 11/29/19 21:00 Room Air 11/29/19 16:00 97.9 60 18 132/64 (86) 96 Intake and Output 11/29/19 11/30/19 19:00 07:00 Intake Total 600 ml Output Total 800 ml 300 ml Balance -200 ml -300 ml Intake Oral 600 ml Output Urine Total 800 ml 300 ml # Bowel Movements 1 Height (Feet): 5 Height (Inches): 10.00 Weight (Pounds): 131 General Appearance: no apparent distress Objective Unchanged Ilya López MD Nov 30, 2019 15:44
[2019-11-30 17:27] VITALS: BP 112/77
[2019-11-30 20:00] VITALS: BP 161/71
--- NOTE | 2019-11-30 20:26 | General Progress Note ---
Assessment/Plan Problem List: (1) COVID-19 ICD Codes: U07.1 - COVID-19 SNOMED: 826822793 (2) Pneumonia ICD Codes: J18.9 - Pneumonia, unspecified organism SNOMED: 423175764 (3) UTI (urinary tract infection) ICD Codes: N39.0 - Urinary tract infection, site not specified SNOMED: 19585996 (4) Diabetes mellitus ICD Codes: E11.9 - Type 2 diabetes mellitus without complications SNOMED: 97788407 (5) Hypoglycemia ICD Codes: E16.2 - Hypoglycemia, unspecified SNOMED: 009608661 (6) NSTEMI (non-ST elevated myocardial infarction) ICD Codes: I21.4 - Non-ST elevation (NSTEMI) myocardial infarction SNOMED: 78601794 (7) Electrolyte imbalance ICD Codes: E87.8 - Other disorders of electrolyte and fluid balance, not elsewhere classified SNOMED: 793404476 Status: progressing, unchanged Assessment/Plan: s/p stroke s/p hypoglycemia refusing treatment afebrile vitals stable covid pna uti improving Subjective ROS Limited/Unobtainable: Yes Allergies: Coded Allergies: No Known Allergies (Unverified , 11/19/19) Objective Last 24 Hour Vital Signs Date Time Temp Pulse Resp B/P (MAP) Pulse Ox O2 Delivery O2 Flow Rate FiO2 11/30/19 20:00 97.5 66 18 161/71 (101) 95 11/30/19 17:27 73 112/77 (89) 11/30/19 09:00 Room Air 11/30/19 09:00 65 130/69 11/29/19 21:00 Room Air Intake and Output 11/29/19 11/30/19 19:00 07:00 Intake Total 600 ml Output Total 800 ml 300 ml Balance -200 ml -300 ml Intake Oral 600 ml Output Urine Total 800 ml 300 ml # Bowel Movements 1 Height (Feet): 5 Height (Inches): 10.00 Weight (Pounds): 131 Sharon Dobson MD Nov 30, 2019 20:26
[2019-11-30] MEDS: OLANZapine 2.5mg tab ORAL SCH (21:22)
--- NOTE | 2019-11-30 22:39 | Psych Consult Progress Note ---
Psychiatry Progress Note Psychiatry Progress Note Subjective the pt is easily agitated Medications Current Medications Medications (Trade) Dose Ordered Sig/Jose Route PRN Reason Start Time Stop Time Status Last Admin Dose Admin Acetaminophen (Tylenol) 650 mg Q6H PRN ORAL mod pain/temp 101 or greater 11/26/19 05:18 12/19/19 05:17 Aspirin (ASA) 81 mg DAILY ORAL 11/26/19 09:00 01/04/20 08:59 11/29/19 09:58 Atorvastatin Calcium (Lipitor) 10 mg DAILY ORAL 11/26/19 09:00 02/19/20 08:59 11/29/19 09:58 Dextrose (Dextrose 50%) 25 ml Q30M PRN IV Hypoglycemia 11/26/19 05:30 02/18/20 19:59 Dextrose (Dextrose 50%) 50 ml Q30M PRN IV Hypoglycemia 11/26/19 05:30 02/18/20 19:59 Dronabinol (Marinol) 5 mg BID ORAL 11/30/19 09:00 02/28/20 08:59 11/30/19 17:37 Enoxaparin Sodium (Lovenox) 40 mg DAILY SUBQ 11/26/19 09:00 02/19/20 08:59 11/29/19 09:59 Haloperidol Lactate (Haldol) 5 mg Q6H PRN IM Agitation 11/26/19 06:45 01/06/20 00:44 Insulin Aspart (NovoLOG) BEFORE MEALS AND HS SUBQ 11/26/19 06:30 02/18/20 20:59 11/30/19 21:35 Metoprolol Tartrate (Lopressor) 12.5 mg EVERY 12 HOURS ORAL 11/26/19 09:00 02/18/20 20:59 11/30/19 21:23 Nateglinide (Starlix) 60 mg TIAC ORAL 11/26/19 06:30 12/21/19 16:29 11/29/19 16:44 Olanzapine (ZyPREXA) 2.5 mg BEDTIME ORAL 11/26/19 21:00 01/06/20 20:59 11/30/19 21:22 Sitagliptin Phosphate (Januvia) 100 mg ACBREAKFAST ORAL 11/26/19 06:30 12/21/19 14:59 11/29/19 05:52 Neurological/Psychiatric: Denies: no symptoms, anxiety, depressed, emotional problems, headache, numbness, paresthesia, pre-existing deficit, seizure, tingling, tremors, weakness, other Allergies: Coded Allergies: No Known Allergies (Unverified , 11/19/19) Objective Data Height (Feet): 5 Height (Inches): 10.00 Weight (Pounds): 131 General Appearance: no apparent distress Additional Comments: awake, disoriented. Mood is anxious. Affect is blunted. Thought process is concrete. Thought content, no suicidal or homicidal ideation. Cognition is impaired. Insight and judgment impaired. Assessment/Plan [place] I: ASSESSMENT: AXIS I: Vascular dementia. Rule out acute encephalopathy. AXIS II: Deferred. AXIS III: COVID-19. AXIS IV: Low. AXIS V: 20. PLAN: 1. The patient lacks capacity to refuse procedures and labs. 2. Suggestive the Haldol prior to the lab draw and place the patient on bilateral restraints. Status: progressing, unchanged Status Narrative ASSESSMENT: AXIS I: Vascular dementia. Rule out acute encephalopathy. AXIS II: Deferred. AXIS III: COVID-19. AXIS IV: Low. AXIS V: 20. PLAN: 1. The patient lacks capacity to refuse procedures and labs. 2. Suggestive the Haldol prior to the lab draw and place the patient on bilateral restraints. Assessment/Plan: ASSESSMENT: AXIS I: Vascular dementia. Rule out acute encephalopathy. AXIS II: Deferred. AXIS III: COVID-19. AXIS IV: Low. AXIS V: 20. PLAN: 1. The patient lacks capacity to refuse procedures and labs. 2. Suggestive the Haldol prior to the lab draw and place the patient on bilateral restraints. Reno Gooden MD Nov 30, 2019 22:39
[2019-12-01] VITALS (16 sets, daily range): BP systolic 132–168; BP diastolic 66–99
[2019-12-01] MEDS: Nateglinide 60mg tab ORAL SCH ×3 (05:55→17:37)
[2019-12-01] MEDS: NovoLOG Insulin Flexpen SUBQ SCH ×3 (06:30→17:40)
--- NOTE | 2019-12-01 06:46 | General Progress Note ---
Assessment/Plan Problem List: (1) Diabetes mellitus ICD Codes: E11.9 - Type 2 diabetes mellitus without complications SNOMED: 14913334 (2) NSTEMI (non-ST elevated myocardial infarction) ICD Codes: I21.4 - Non-ST elevation (NSTEMI) myocardial infarction SNOMED: 12197273 (3) Hypoglycemia ICD Codes: E16.2 - Hypoglycemia, unspecified SNOMED: 936479195 (4) COVID-19 ICD Codes: U07.1 - COVID-19 SNOMED: 182860773 (5) Pneumonia ICD Codes: J18.9 - Pneumonia, unspecified organism SNOMED: 639947605 (6) UTI (urinary tract infection) ICD Codes: N39.0 - Urinary tract infection, site not specified SNOMED: 96906860 Status: progressing, unchanged Assessment/Plan: continue Januvia 100 mg daily continue Starlix 60 mg ac tid continue Novolog sliding scale ac / hs hypoglycemia protocol in order Subjective ROS Limited/Unobtainable: Yes Allergies: Coded Allergies: No Known Allergies (Unverified , 11/19/19) Subjective events noted interval notes reviewed refused medications most day yesterday Item Value Date Time Bedside Blood Glucose 131 mg/dl H 12/01/19 0630 Bedside Blood Glucose 169 mg/dl H 11/30/19 2135 Objective Last 24 Hour Vital Signs Date Time Temp Pulse Resp B/P (MAP) Pulse Ox O2 Delivery O2 Flow Rate FiO2 12/01/19 04:00 97.8 71 19 137/74 (95) 97 12/01/19 00:00 97.6 69 18 144/66 (92) 97 11/30/19 21:23 66 161/71 11/30/19 21:00 Room Air 11/30/19 20:00 97.5 66 18 161/71 (101) 95 11/30/19 17:27 73 112/77 (89) 11/30/19 09:00 Room Air 11/30/19 09:00 65 130/69 Intake and Output 11/30/19 12/01/19 19:00 07:00 Intake Total 360 ml 420 ml Output Total 500 ml 400 ml Balance -140 ml 20 ml Intake Oral 360 ml 420 ml Output Urine Total 500 ml 400 ml Laboratory Tests 11/30/19 21:27: POC Whole Blood Glucose 169H Height (Feet): 5 Height (Inches): 10.00 Weight (Pounds): 131 General Appearance: no apparent distress Neck: normal alignment Cardiovascular: normal rate Respiratory/Chest: lungs clear Abdomen: normal bowel sounds Objective Current Medications Medications (Trade) Dose Ordered Sig/Jose Route PRN Reason Start Time Stop Time Status Last Admin Dose Admin Acetaminophen (Tylenol) 650 mg Q6H PRN ORAL mod pain/temp 101 or greater 11/26/19 05:18 12/19/19 05:17 Aspirin (ASA) 81 mg DAILY ORAL 11/26/19 09:00 01/04/20 08:59 11/29/19 09:58 Atorvastatin Calcium (Lipitor) 10 mg DAILY ORAL 11/26/19 09:00 02/19/20 08:59 11/29/19 09:58 Dextrose (Dextrose 50%) 25 ml Q30M PRN IV Hypoglycemia 11/26/19 05:30 02/18/20 19:59 Dextrose (Dextrose 50%) 50 ml Q30M PRN IV Hypoglycemia 11/26/19 05:30 02/18/20 19:59 Dronabinol (Marinol) 5 mg BID ORAL 11/30/19 09:00 02/28/20 08:59 11/30/19 17:37 Enoxaparin Sodium (Lovenox) 40 mg DAILY SUBQ 11/26/19 09:00 02/19/20 08:59 11/29/19 09:59 Haloperidol Lactate (Haldol) 5 mg Q6H PRN IM Agitation 11/26/19 06:45 01/06/20 00:44 Insulin Aspart (NovoLOG) BEFORE MEALS AND HS SUBQ 11/26/19 06:30 02/18/20 20:59 11/30/19 21:35 Metoprolol Tartrate (Lopressor) 12.5 mg EVERY 12 HOURS ORAL 11/26/19 09:00 02/18/20 20:59 11/30/19 21:23 Nateglinide (Starlix) 60 mg TIAC ORAL 11/26/19 06:30 12/21/19 16:29 12/01/19 05:55 Olanzapine (ZyPREXA) 2.5 mg BEDTIME ORAL 11/26/19 21:00 01/06/20 20:59 11/30/19 21:22 Sitagliptin Phosphate (Januvia) 100 mg ACBREAKFAST ORAL 11/26/19 06:30 12/21/19 14:59 12/01/19 05:55 Vinicius Gunter MD Dec 01, 2019 06:46
--- NOTE | 2019-12-01 07:06 | Hematology/Onc Progress Note ---
Assessment/Plan Assessment/Plan Assessment/Plan # Anemia of chronic disease due to underlying chronic medical issues, multifactorial v Gi bleed --> Anemia workup has been ordered, rule out gi bleed --> No evidence of hemolysis is noted, peripheral smear has been reviewed. --> Hgb goal >7. Transfuse prn. --> Epogen or iron at this time is not particularly indicated --> Medications have been reviewed --> low threshold for gi evaluation in case has occult + --> hgb 9.2-->9.3 # Coagulopathy is likely due to COVID 19 pna --> as per id abx --> initially was on abx --> now off them --> mixing study if doesn't improve and repeats inr/ptt are elev # Troponin elevation 0.2 and 0.145 and inferolateral ischemia. Echo ef 65% --> On aspirin, Metoprolol 12.5 bid and Lipitor 10 daily --> Stress test after Covid negative --> per Dr. Garcia # Uncontrolled diabetes. # Hypertension, On Lopressor # History of CVA. # Dvt ppx lovenox sq The timing of this note does not necessarily reflect the time of the patient was seen. Greatly appreciate consultation. Subjective Constitutional: Denies: no symptoms, chills, fever, malaise, weakness, other HEENT: Denies: no symptoms, eye pain, blurred vision, tearing, double vision, ear pain, ear discharge, nose pain, nose congestion, throat pain, throat swelling, mouth pain, mouth swelling, other Cardiovascular: Denies: no symptoms, chest pain, edema, irregular heart rate, lightheadedness, palpitations, syncope, other Respiratory: Denies: no symptoms, cough, shortness of breath, SOB with excertion, SOB at rest, sputum, wheezing, other Gastrointestinal/Abdominal: Denies: no symptoms, abdomen distended, abdominal pain, black stools, tarry stools, blood in stool, constipated, diarrhea, difficulty swallowing, nausea, poor appetite, poor fluid intake, rectal bleeding , vomiting, other Genitourinary: Denies: no symptoms, burning, discharge, frequency, flank pain, hematuria, incontinence, pain, urgency, other Neurologic/Psychiatric: Denies: no symptoms, anxiety, depressed, emotional problems, headache, numbness, paresthesia, pre-existing deficit, seizure, tingling, tremors, weakness, other Endocrine: Denies: no symptoms, excessive sweating, flushing, intolerance to cold, intolerance to heat, increased hunger, increased thirst, increased urine, unexplained weight gain, unexplained weight loss, other Allergies: Coded Allergies: No Known Allergies (Unverified , 11/19/19) Subjective 11/24 labs are noted, off abx for covid 19, meds reivewed, MED RECON completed 11/25 labs are noted, no bleeding, remains agitated during exam, no other changes , on ra 11/27 has continued to refuse labs, and noncompliant with meds, no bleeding noted 11/28 labs are noted, no bleeding, pending placement, ene rn 11/29 labs reviewed, no major changes, on marinol as per gi 11/30 has been refusing labs draws, no bleeding, no new events otherwise Objective Objective Current Medications Medications (Trade) Dose Ordered Sig/Jose Route PRN Reason Start Time Stop Time Status Last Admin Dose Admin Acetaminophen (Tylenol) 650 mg Q6H PRN ORAL mod pain/temp 101 or greater 11/26/19 05:18 12/19/19 05:17 Aspirin (ASA) 81 mg DAILY ORAL 11/26/19 09:00 01/04/20 08:59 11/29/19 09:58 Atorvastatin Calcium (Lipitor) 10 mg DAILY ORAL 11/26/19 09:00 02/19/20 08:59 11/29/19 09:58 Dextrose (Dextrose 50%) 25 ml Q30M PRN IV Hypoglycemia 11/26/19 05:30 02/18/20 19:59 Dextrose (Dextrose 50%) 50 ml Q30M PRN IV Hypoglycemia 11/26/19 05:30 02/18/20 19:59 Dronabinol (Marinol) 5 mg BID ORAL 11/30/19 09:00 02/28/20 08:59 11/30/19 17:37 Enoxaparin Sodium (Lovenox) 40 mg DAILY SUBQ 11/26/19 09:00 02/19/20 08:59 11/29/19 09:59 Haloperidol Lactate (Haldol) 5 mg Q6H PRN IM Agitation 11/26/19 06:45 01/06/20 00:44 Insulin Aspart (NovoLOG) BEFORE MEALS AND HS SUBQ 11/26/19 06:30 02/18/20 20:59 11/30/19 21:35 Metoprolol Tartrate (Lopressor) 12.5 mg EVERY 12 HOURS ORAL 11/26/19 09:00 02/18/20 20:59 11/30/19 21:23 Nateglinide (Starlix) 60 mg TIAC ORAL 11/26/19 06:30 12/21/19 16:29 12/01/19 05:55 Olanzapine (ZyPREXA) 2.5 mg BEDTIME ORAL 11/26/19 21:00 01/06/20 20:59 11/30/19 21:22 Sitagliptin Phosphate (Januvia) 100 mg ACBREAKFAST ORAL 11/26/19 06:30 12/21/19 14:59 12/01/19 05:55 Last 24 Hour Vital Signs Date Time Temp Pulse Resp B/P (MAP) Pulse Ox O2 Delivery O2 Flow Rate FiO2 12/01/19 04:00 97.8 71 19 137/74 (95) 97 12/01/19 00:00 97.6 69 18 144/66 (92) 97 11/30/19 21:23 66 161/71 11/30/19 21:00 Room Air 11/30/19 20:00 97.5 66 18 161/71 (101) 95 11/30/19 17:27 73 112/77 (89) 11/30/19 09:00 Room Air 11/30/19 09:00 65 130/69 11/29/19 21:00 Room Air 11/29/19 16:00 97.9 60 18 132/64 (86) 96 11/29/19 12:00 98.0 68 20 141/84 (103) 97 11/29/19 09:58 64 139/82 11/29/19 09:00 Room Air 11/29/19 08:00 97.8 64 20 139/82 (101) 97 Intake and Output 11/30/19 12/01/19 19:00 07:00 Intake Total 360 ml 420 ml Output Total 500 ml 400 ml Balance -140 ml 20 ml Intake Oral 360 ml 420 ml Output Urine Total 500 ml 400 ml Labs Test 11/28/19 10:49 11/28/19 14:00 11/29/19 07:35 11/30/19 21:27 POC Whole Blood Glucose 168 MG/DL (74-106) 169 MG/DL (74-106) Stool Occult Blood Negative (NEGATIVE) White Blood Count 7.3 K/UL (4.8-10.8) Red Blood Count 3.51 M/UL (4.70-6.10) Hemoglobin 9.9 G/DL (14.2-18.0) Hematocrit 30.1 % (42.0-52.0) Mean Corpuscular Volume 86 FL (80-99) Mean Corpuscular Hemoglobin 28.3 PG (27.0-31.0) Mean Corpuscular Hemoglobin Concent 33.0 G/DL (32.0-36.0) Red Cell Distribution Width 12.4 % (11.6-14.8) Platelet Count 322 K/UL (150-450) Mean Platelet Volume 7.0 FL (6.5-10.1) Neutrophils (%) (Auto) 62.0 % (45.0-75.0) Lymphocytes (%) (Auto) 26.3 % (20.0-45.0) Monocytes (%) (Auto) 8.4 % (1.0-10.0) Eosinophils (%) (Auto) 0.8 % (0.0-3.0) Basophils (%) (Auto) 2.5 % (0.0-2.0) Sodium Level 140 MMOL/L (136-145) Potassium Level 4.5 MMOL/L (3.5-5.1) Chloride Level 106 MMOL/L (98-107) Carbon Dioxide Level 26 MMOL/L (21-32) Anion Gap 8 mmol/L (5-15) Blood Urea Nitrogen 16 mg/dL (7-18) Creatinine 1.0 MG/DL (0.55-1.30) Estimat Glomerular Filtration Rate > 60 mL/min (>60) Glucose Level 133 MG/DL (74-106) Calcium Level 9.1 MG/DL (8.5-10.1) Phosphorus Level 3.2 MG/DL (2.5-4.9) Magnesium Level 1.9 MG/DL (1.8-2.4) Total Bilirubin 0.5 MG/DL (0.2-1.0) Aspartate Amino Transf (AST/SGOT) 20 U/L (15-37) Alanine Aminotransferase (ALT/SGPT) 30 U/L (12-78) Alkaline Phosphatase 75 U/L (46-116) Total Protein 7.2 G/DL (6.4-8.2) Albumin 2.7 G/DL (3.4-5.0) Globulin 4.5 g/dL Albumin/Globulin Ratio 0.6 (1.0-2.7) Height (Feet): 5 Height (Inches): 10.00 Weight (Pounds): 131 Objective Physical Exam: Vitals: reviewed General: NAD HEENT: nc, at Neck: supple Chest: clear breath sounds bilaterally Cardiovascular: RRR, no s3, s4 Abdomen: soft, nontender, nd Extremities: no cce, normal range of motion Neuro: alert and oriented Alexander Mcnair MD Dec 01, 2019 07:06
[2019-12-01] MEDS: Metoprolol Tartrate 12.5mg TAB ORAL SCH ×2 (09:00→13:19)
[2019-12-01] MEDS: Dronabinol 2.5mg Cap ORAL SCH ×2 (09:00→17:37)
[2019-12-01] MEDS: Aspirin Baby 81mg ORAL SCH (09:00)
[2019-12-01] MEDS: Enoxaparin 40mg Inj SUBQ SCH (09:00)
--- NOTE | 2019-12-01 09:17 | General Progress Note ---
Assessment/Plan Problem List: (1) FTT (failure to thrive) in adult ICD Codes: R62.7 - Adult failure to thrive SNOMED: 894117188 (2) NSTEMI (non-ST elevated myocardial infarction) ICD Codes: I21.4 - Non-ST elevation (NSTEMI) myocardial infarction SNOMED: 94910524 (3) UTI (urinary tract infection) ICD Codes: N39.0 - Urinary tract infection, site not specified SNOMED: 95538422 (4) COVID-19 ICD Codes: U07.1 - COVID-19 SNOMED: 914357811 (5) Diabetes mellitus ICD Codes: E11.9 - Type 2 diabetes mellitus without complications SNOMED: 61512631 Status: progressing, unchanged Assessment/Plan: calorie count swallow eval>>>patient refused fu labs patient is non compliance refusing labs and care on marinol and eating better on diet will fu Subjective ROS Limited/Unobtainable: Yes Allergies: Coded Allergies: No Known Allergies (Unverified , 11/19/19) Objective Last 24 Hour Vital Signs Date Time Temp Pulse Resp B/P (MAP) Pulse Ox O2 Delivery O2 Flow Rate FiO2 12/01/19 04:00 97.8 71 19 137/74 (95) 97 12/01/19 00:00 97.6 69 18 144/66 (92) 97 11/30/19 21:23 66 161/71 11/30/19 21:00 Room Air 11/30/19 20:00 97.5 66 18 161/71 (101) 95 11/30/19 17:27 73 112/77 (89) Intake and Output 11/30/19 12/01/19 19:00 07:00 Intake Total 360 ml 420 ml Output Total 500 ml 400 ml Balance -140 ml 20 ml Intake Oral 360 ml 420 ml Output Urine Total 500 ml 400 ml Laboratory Tests 11/30/19 21:27: POC Whole Blood Glucose 169H Height (Feet): 5 Height (Inches): 10.00 Weight (Pounds): 131 General Appearance: no apparent distress EENT: normal ENT inspection Neck: supple Cardiovascular: normal rate Respiratory/Chest: decreased breath sounds Abdomen: normal bowel sounds, non tender, soft Extremities: non-tender Shaun Garrett MD Dec 01, 2019 09:17
--- NOTE | 2019-12-01 10:07 | Nephrology Progress Note ---
Assessment/Plan Problem List: (1) Electrolyte imbalance Assessment: Hyponatremia (2) Diabetes mellitus (3) Hypoglycemia (4) COVID-19 (5) Pneumonia (6) UTI (urinary tract infection) (7) NSTEMI (non-ST elevated myocardial infarction) Assessment Hyponatremia likely depletional Diabetes mellitus, with periodic hypoglycemia Non-STEMI COVID-19, pneumonia UTI Hypertension Previous CVA Plan November 30: Clinically appears stable. Will order a chemistry panel. Continue per consultants. November 29: Can panel from November 28 reviewed. Stable renal parameters. No evidence of dehydration. Blood pressure stable. November 28: Today's can panel pending. Otherwise unchanged. November 27: Patient refuses labs and blood sugar check, and has pulled out IV previously. He also refuses PO meds, periodically. RN states that the patient takes p.o. but not fully. Continue per psych advice and management. November 26: No blood drawn yet. Stable clinically. November 25: Patient refused blood draw today. Clinically stable. November 24: No labs done again today. Clinically stable. November 23: No labs done today. Clinically stable. Continue per consultants. November 22: Labs reviewed. Renal parameters stable. Magnesium slightly low. IV magnesium ordered. Continue per consultants. November 21: No labs available. Physical examination and vital signs are all okay. Psychiatric evaluation noted and appreciated. Patient lacks capacity to make decisions and refuse labs. Patient been refusing blood draw and taking medication today according to the RN Keep the blood pressure and blood sugar in check as possible Slow hydrate Monitor electrolytes Per consultants Subjective ROS Limited/Unobtainable: No Constitutional: Reports: malaise, weakness Objective Objective Last 24 Hour Vital Signs Date Time Temp Pulse Resp B/P (MAP) Pulse Ox O2 Delivery O2 Flow Rate FiO2 12/01/19 09:27 81 19 158/99 (118) 96 12/01/19 09:00 Room Air 12/01/19 08:00 78 19 158/98 (118) 96 12/01/19 04:00 97.8 71 19 137/74 (95) 97 12/01/19 00:00 97.6 69 18 144/66 (92) 97 11/30/19 21:23 66 161/71 11/30/19 21:00 Room Air 11/30/19 20:00 97.5 66 18 161/71 (101) 95 11/30/19 17:27 73 112/77 (89) Intake and Output 11/30/19 12/01/19 19:00 07:00 Intake Total 360 ml 420 ml Output Total 500 ml 400 ml Balance -140 ml 20 ml Intake Oral 360 ml 420 ml Output Urine Total 500 ml 400 ml Current Medications Medications (Trade) Dose Ordered Sig/Jose Route PRN Reason Start Time Stop Time Status Last Admin Dose Admin Acetaminophen (Tylenol) 650 mg Q6H PRN ORAL mod pain/temp 101 or greater 11/26/19 05:18 12/19/19 05:17 Aspirin (ASA) 81 mg DAILY ORAL 11/26/19 09:00 01/04/20 08:59 11/29/19 09:58 Atorvastatin Calcium (Lipitor) 10 mg DAILY ORAL 11/26/19 09:00 02/19/20 08:59 11/29/19 09:58 Dextrose (Dextrose 50%) 25 ml Q30M PRN IV Hypoglycemia 11/26/19 05:30 02/18/20 19:59 Dextrose (Dextrose 50%) 50 ml Q30M PRN IV Hypoglycemia 11/26/19 05:30 02/18/20 19:59 Dronabinol (Marinol) 5 mg BID ORAL 11/30/19 09:00 02/28/20 08:59 11/30/19 17:37 Enoxaparin Sodium (Lovenox) 40 mg DAILY SUBQ 11/26/19 09:00 02/19/20 08:59 11/29/19 09:59 Haloperidol Lactate (Haldol) 5 mg Q6H PRN IM Agitation 11/26/19 06:45 01/06/20 00:44 12/01/19 08:28 Insulin Aspart (NovoLOG) BEFORE MEALS AND HS SUBQ 11/26/19 06:30 02/18/20 20:59 11/30/19 21:35 Metoprolol Tartrate (Lopressor) 12.5 mg EVERY 12 HOURS ORAL 11/26/19 09:00 02/18/20 20:59 11/30/19 21:23 Nateglinide (Starlix) 60 mg TIAC ORAL 11/26/19 06:30 12/21/19 16:29 12/01/19 05:55 Olanzapine (ZyPREXA) 2.5 mg BEDTIME ORAL 11/26/19 21:00 01/06/20 20:59 11/30/19 21:22 Sitagliptin Phosphate (Januvia) 100 mg ACBREAKFAST ORAL 11/26/19 06:30 12/21/19 14:59 12/01/19 05:55 Laboratory Tests 11/30/19 21:27: POC Whole Blood Glucose 169H Height (Feet): 5 Height (Inches): 10.00 Weight (Pounds): 131 General Appearance: no apparent distress, agitated - Periodically Cardiovascular: normal rate Abdomen: soft Objective Unchanged Ilya López MD Dec 01, 2019 10:07
--- NOTE | 2019-12-01 12:04 | Pulmonology Progress Note ---
Subjective ROS Limited/Unobtainable: No Interval Events: None new Constitutional: Denies: fever HEENT: Repors: no symptoms Respiratory: Reports: dry cough Cardiovascular: Reports: no symptoms Gastrointestinal/Abdominal: Reports: no symptoms Psychiatric: Reports: other - refuses medications Allergies: Coded Allergies: No Known Allergies (Unverified , 11/19/19) All Systems: reviewed and negative except above Objective Last 24 Hour Vital Signs Date Time Temp Pulse Resp B/P (MAP) Pulse Ox O2 Delivery O2 Flow Rate FiO2 12/01/19 09:27 81 19 158/99 (118) 96 12/01/19 09:00 Room Air 12/01/19 08:00 78 19 158/98 (118) 96 12/01/19 04:00 97.8 71 19 137/74 (95) 97 12/01/19 00:00 97.6 69 18 144/66 (92) 97 11/30/19 21:23 66 161/71 11/30/19 21:00 Room Air 11/30/19 20:00 97.5 66 18 161/71 (101) 95 11/30/19 17:27 73 112/77 (89) Intake and Output 11/30/19 12/01/19 19:00 07:00 Intake Total 360 ml 420 ml Output Total 500 ml 400 ml Balance -140 ml 20 ml Intake Oral 360 ml 420 ml Output Urine Total 500 ml 400 ml General Appearance: no acute distress HEENT: normocephalic Respiratory: chest wall non-tender, lungs clear Cardiovascular: normal peripheral pulses, normal rate Abdomen: normal bowel sounds Laboratory Tests 11/30/19 21:27: POC Whole Blood Glucose 169H Current Medications Medications (Trade) Dose Ordered Sig/Jose Route PRN Reason Start Time Stop Time Status Last Admin Dose Admin Acetaminophen (Tylenol) 650 mg Q6H PRN ORAL mod pain/temp 101 or greater 11/26/19 05:18 12/19/19 05:17 Aspirin (ASA) 81 mg DAILY ORAL 11/26/19 09:00 01/04/20 08:59 11/29/19 09:58 Atorvastatin Calcium (Lipitor) 10 mg DAILY ORAL 11/26/19 09:00 02/19/20 08:59 11/29/19 09:58 Dextrose (Dextrose 50%) 25 ml Q30M PRN IV Hypoglycemia 11/26/19 05:30 02/18/20 19:59 Dextrose (Dextrose 50%) 50 ml Q30M PRN IV Hypoglycemia 11/26/19 05:30 02/18/20 19:59 Dronabinol (Marinol) 5 mg BID ORAL 11/30/19 09:00 02/28/20 08:59 11/30/19 17:37 Enoxaparin Sodium (Lovenox) 40 mg DAILY SUBQ 11/26/19 09:00 02/19/20 08:59 11/29/19 09:59 Haloperidol Lactate (Haldol) 5 mg Q6H PRN IM Agitation 11/26/19 06:45 01/06/20 00:44 12/01/19 08:28 Insulin Aspart (NovoLOG) BEFORE MEALS AND HS SUBQ 11/26/19 06:30 02/18/20 20:59 11/30/19 21:35 Metoprolol Tartrate (Lopressor) 12.5 mg EVERY 12 HOURS ORAL 11/26/19 09:00 02/18/20 20:59 11/30/19 21:23 Nateglinide (Starlix) 60 mg TIAC ORAL 11/26/19 06:30 12/21/19 16:29 12/01/19 05:55 Olanzapine (ZyPREXA) 2.5 mg BEDTIME ORAL 11/26/19 21:00 01/06/20 20:59 11/30/19 21:22 Sitagliptin Phosphate (Januvia) 100 mg ACBREAKFAST ORAL 11/26/19 06:30 12/21/19 14:59 12/01/19 05:55 Assessment/Plan Assessment/Plan IMPRESSION: 1. COVID19 pneumonia. 2. Hypoglycemia. 3. Diabetes mellitus. 4. Hypertension. 5. CVA. DISCUSSION: Continue medications I will follow carefully. Saturating well on RA Dc planning Cesar Hancock Omar Syed MD Dec 01, 2019 12:04
--- NOTE | 2019-12-01 12:09 | Cardiac Electrophysiology PN ---
Assessment/Plan Assessment/Plan 1. Troponin elevation 0.2 and 0.145 and inferolateral ischemia. Denies chest pain. On aspirin, Metoprolol 12.5 bid and Lipitor 10 daily if he takes them. Echo EF 65% Not a candidate for Stress test as is very noncompliant 2. Positive COVID. 3. Uncontrolled diabetes. 4. Hypertension, On Lopressor 5. History of CVA. 6. Hyperlipidemia on Lipitor DW RN Subjective Subjective In isolation for Covid. In restraints and noncompliant.Family refused to take him home. SNIF placement pending Objective Last 24 Hour Vital Signs Date Time Temp Pulse Resp B/P (MAP) Pulse Ox O2 Delivery O2 Flow Rate FiO2 12/01/19 09:27 81 19 158/99 (118) 96 12/01/19 09:00 Room Air 12/01/19 08:00 78 19 158/98 (118) 96 12/01/19 04:00 97.8 71 19 137/74 (95) 97 12/01/19 00:00 97.6 69 18 144/66 (92) 97 11/30/19 21:23 66 161/71 11/30/19 21:00 Room Air 11/30/19 20:00 97.5 66 18 161/71 (101) 95 11/30/19 17:27 73 112/77 (89) Intake and Output 11/30/19 12/01/19 19:00 07:00 Intake Total 360 ml 420 ml Output Total 500 ml 400 ml Balance -140 ml 20 ml Intake Oral 360 ml 420 ml Output Urine Total 500 ml 400 ml Laboratory Tests Test 11/30/19 21:27 POC Whole Blood Glucose 169 MG/DL (74-106) H Objective HEAD AND NECK: No JVD. LUNGS: Coarse rhonchi. CARDIOVASCULAR: Regular S1 and S2 with no gallop or murmur. ABDOMEN: Soft. EXTREMITIES: No pitting edema. Sean Garcia MD Dec 01, 2019 12:09
--- NOTE | 2019-12-01 12:15 | Infectious Diseases Prog Note ---
Assessment/Plan Assessment/Plan IMPRESSION: COVID-19 disease Diabetes mellitus with hypoglycemia, Hypertension, Anemia, elevation in troponin. RECOMMENDATION: Observe off of antibiotic Case was D/W son yesterday Subjective ROS Limited/Unobtainable: Yes Neurologic: Reports: confusion, other - on restraint Allergies: Coded Allergies: No Known Allergies (Unverified , 11/19/19) Objective Last 24 Hour Vital Signs Date Time Temp Pulse Resp B/P (MAP) Pulse Ox O2 Delivery O2 Flow Rate FiO2 12/01/19 09:27 81 19 158/99 (118) 96 12/01/19 09:00 Room Air 12/01/19 08:00 78 19 158/98 (118) 96 12/01/19 04:00 97.8 71 19 137/74 (95) 97 12/01/19 00:00 97.6 69 18 144/66 (92) 97 11/30/19 21:23 66 161/71 11/30/19 21:00 Room Air 11/30/19 20:00 97.5 66 18 161/71 (101) 95 11/30/19 17:27 73 112/77 (89) Height (Feet): 5 Height (Inches): 10.00 Weight (Pounds): 131 General Appearance: no acute distress HEENT: mucous membranes moist Respiratory/Chest: lungs clear Cardiovascular: normal rate Abdomen: soft, non tender Neurologic/Psychiatric: alert, responsive Laboratory Tests Test 11/30/19 21:27 POC Whole Blood Glucose 169 MG/DL (74-106) H Current Medications Medications (Trade) Dose Ordered Sig/Jose Route PRN Reason Start Time Stop Time Status Last Admin Dose Admin Acetaminophen (Tylenol) 650 mg Q6H PRN ORAL mod pain/temp 101 or greater 11/26/19 05:18 12/19/19 05:17 Aspirin (ASA) 81 mg DAILY ORAL 11/26/19 09:00 01/04/20 08:59 11/29/19 09:58 Atorvastatin Calcium (Lipitor) 10 mg DAILY ORAL 11/26/19 09:00 02/19/20 08:59 11/29/19 09:58 Dextrose (Dextrose 50%) 25 ml Q30M PRN IV Hypoglycemia 11/26/19 05:30 02/18/20 19:59 Dextrose (Dextrose 50%) 50 ml Q30M PRN IV Hypoglycemia 11/26/19 05:30 02/18/20 19:59 Dronabinol (Marinol) 5 mg BID ORAL 11/30/19 09:00 02/28/20 08:59 11/30/19 17:37 Enoxaparin Sodium (Lovenox) 40 mg DAILY SUBQ 11/26/19 09:00 02/19/20 08:59 11/29/19 09:59 Haloperidol Lactate (Haldol) 5 mg Q6H PRN IM Agitation 11/26/19 06:45 01/06/20 00:44 12/01/19 08:28 Insulin Aspart (NovoLOG) BEFORE MEALS AND HS SUBQ 11/26/19 06:30 02/18/20 20:59 11/30/19 21:35 Metoprolol Tartrate (Lopressor) 12.5 mg EVERY 12 HOURS ORAL 11/26/19 09:00 02/18/20 20:59 11/30/19 21:23 Nateglinide (Starlix) 60 mg TIAC ORAL 11/26/19 06:30 12/21/19 16:29 12/01/19 05:55 Olanzapine (ZyPREXA) 2.5 mg BEDTIME ORAL 11/26/19 21:00 01/06/20 20:59 11/30/19 21:22 Sitagliptin Phosphate (Januvia) 100 mg ACBREAKFAST ORAL 11/26/19 06:30 12/21/19 14:59 12/01/19 05:55 Josh Contreras MD Dec 01, 2019 12:15
[2019-12-01] MEDS ORDERED: cloNIDine 0.2mg Tab ORAL SCH (16:45)
--- NOTE | 2019-12-01 21:29 | General Progress Note ---
Assessment/Plan Problem List: (1) COVID-19 ICD Codes: U07.1 - COVID-19 SNOMED: 907239930 (2) Pneumonia ICD Codes: J18.9 - Pneumonia, unspecified organism SNOMED: 293384736 (3) UTI (urinary tract infection) ICD Codes: N39.0 - Urinary tract infection, site not specified SNOMED: 91051460 (4) Diabetes mellitus ICD Codes: E11.9 - Type 2 diabetes mellitus without complications SNOMED: 75637892 (5) Hypoglycemia ICD Codes: E16.2 - Hypoglycemia, unspecified SNOMED: 418578563 (6) NSTEMI (non-ST elevated myocardial infarction) ICD Codes: I21.4 - Non-ST elevation (NSTEMI) myocardial infarction SNOMED: 93334530 (7) Electrolyte imbalance ICD Codes: E87.8 - Other disorders of electrolyte and fluid balance, not elsewhere classified SNOMED: 753039248 Status: progressing, unchanged Assessment/Plan: htn refuses pills dc to snf per dpoa request s/p cva afebrile Subjective ROS Limited/Unobtainable: Yes Allergies: Coded Allergies: No Known Allergies (Unverified , 11/19/19) Objective Last 24 Hour Vital Signs Date Time Temp Pulse Resp B/P (MAP) Pulse Ox O2 Delivery O2 Flow Rate FiO2 12/01/19 20:00 97.6 79 17 137/75 (95) 96 12/01/19 19:50 97.6 79 17 137/75 (95) 96 12/01/19 18:50 98.2 82 18 134/71 (92) 96 12/01/19 17:50 98.4 79 18 138/72 (94) 96 12/01/19 17:38 150/84 12/01/19 16:50 98.2 76 18 150/84 (106) 96 12/01/19 16:02 155/79 12/01/19 15:50 97.9 74 18 138/81 (100) 96 12/01/19 15:20 97.8 75 18 137/78 (97) 96 12/01/19 14:50 97.8 75 18 148/91 (110) 97 12/01/19 14:20 97.7 75 19 159/97 (117) 96 12/01/19 14:08 97 Room Air 12/01/19 13:50 97.7 76 19 168/98 (121) 96 12/01/19 13:19 81 165/78 12/01/19 12:00 97.8 79 19 132/79 (96) 96 12/01/19 09:27 81 19 158/99 (118) 96 12/01/19 09:00 Room Air 12/01/19 08:00 78 19 158/98 (118) 96 12/01/19 04:00 97.8 71 19 137/74 (95) 97 12/01/19 00:00 97.6 69 18 144/66 (92) 97 Intake and Output 11/30/19 12/01/19 19:00 07:00 Intake Total 360 ml 420 ml Output Total 500 ml 400 ml Balance -140 ml 20 ml Intake Oral 360 ml 420 ml Output Urine Total 500 ml 400 ml Laboratory Tests 12/01/19 17:10: POC Whole Blood Glucose 235H Height (Feet): 5 Height (Inches): 10.00 Weight (Pounds): 131 Sharon Dobson MD Dec 01, 2019 21:29
--- NOTE | 2019-12-01 23:06 | Psych Consult Progress Note ---
Psychiatry Progress Note Psychiatry Progress Note Subjective the pt is easily agitated Medications Current Medications Medications (Trade) Dose Ordered Sig/Jose Route PRN Reason Start Time Stop Time Status Last Admin Dose Admin Acetaminophen (Tylenol) 650 mg Q6H PRN ORAL mod pain/temp 101 or greater 11/26/19 05:18 12/19/19 05:17 12/01/19 13:20 Aspirin (ASA) 81 mg DAILY ORAL 11/26/19 09:00 01/04/20 08:59 11/29/19 09:58 Atorvastatin Calcium (Lipitor) 10 mg DAILY ORAL 11/26/19 09:00 02/19/20 08:59 11/29/19 09:58 Clonidine HCl (Catapres TTS-2) 1 patch QWEEK TDERMAL 12/01/19 16:00 02/29/20 15:59 12/01/19 16:02 Dextrose (Dextrose 50%) 25 ml Q30M PRN IV Hypoglycemia 11/26/19 05:30 02/18/20 19:59 Dextrose (Dextrose 50%) 50 ml Q30M PRN IV Hypoglycemia 11/26/19 05:30 02/18/20 19:59 Dronabinol (Marinol) 5 mg BID ORAL 11/30/19 09:00 02/28/20 08:59 12/01/19 17:37 Enoxaparin Sodium (Lovenox) 40 mg DAILY SUBQ 11/26/19 09:00 02/19/20 08:59 11/29/19 09:59 Haloperidol Lactate (Haldol) 5 mg Q6H PRN IM Agitation 11/26/19 06:45 01/06/20 00:44 12/01/19 08:28 Insulin Aspart (NovoLOG) BEFORE MEALS AND HS SUBQ 11/26/19 06:30 02/18/20 20:59 12/01/19 17:40 Metoprolol Tartrate (Lopressor) 12.5 mg EVERY 12 HOURS ORAL 11/26/19 09:00 02/18/20 20:59 12/01/19 13:19 Nateglinide (Starlix) 60 mg TIAC ORAL 11/26/19 06:30 12/21/19 16:29 12/01/19 17:37 Olanzapine (ZyPREXA) 2.5 mg BEDTIME ORAL 11/26/19 21:00 01/06/20 20:59 11/30/19 21:22 Sitagliptin Phosphate (Januvia) 100 mg ACBREAKFAST ORAL 11/26/19 06:30 12/21/19 14:59 12/01/19 05:55 Neurological/Psychiatric: Denies: no symptoms, anxiety, depressed, emotional problems, headache, numbness, paresthesia, pre-existing deficit, seizure, tingling, tremors, weakness, other Allergies: Coded Allergies: No Known Allergies (Unverified , 11/19/19) Objective Data Height (Feet): 5 Height (Inches): 10.00 Weight (Pounds): 131 General Appearance: no apparent distress, agitated - Periodically Additional Comments: awake, disoriented. Mood is anxious. Affect is blunted. Thought process is concrete. Thought content, no suicidal or homicidal ideation. Cognition is impaired. Insight and judgment impaired. Assessment/Plan [place] I: ASSESSMENT: AXIS I: Vascular dementia. Rule out acute encephalopathy. AXIS II: Deferred. AXIS III: COVID-19. AXIS IV: Low. AXIS V: 20. PLAN: 1. The patient lacks capacity to refuse procedures and labs. 2. Suggestive the Haldol prior to the lab draw and place the patient on bilateral restraints. Status: progressing, unchanged Status Narrative ASSESSMENT: AXIS I: Vascular dementia. Rule out acute encephalopathy. AXIS II: Deferred. AXIS III: COVID-19. AXIS IV: Low. AXIS V: 20. PLAN: 1. The patient lacks capacity to refuse procedures and labs. 2. Suggestive the Haldol prior to the lab draw and place the patient on bilateral restraints. Assessment/Plan: ASSESSMENT: AXIS I: Vascular dementia. Rule out acute encephalopathy. AXIS II: Deferred. AXIS III: COVID-19. AXIS IV: Low. AXIS V: 20. PLAN: 1. The patient lacks capacity to refuse procedures and labs. 2. Suggestive the Haldol prior to the lab draw and place the patient on bilateral restraints. Reno Gooden MD Dec 01, 2019 23:06
--- NOTE | 2019-12-03 14:39 | Discharge Summary ---
Discharge Summary Discharge Summary _ DATE OF ADMISSION: 11/19/2019 DATE OF DISCHARGE: 12/01/2019 DISCHARGED BY: Dr. Dobson REASON FOR ADMISSION: 64 years old male with past medical history of recent CVA, approximately 1 month ago, requiring ICU admission in the outside hospital, diabetes mellitus, presented with hypoglycemia. Apparently for the past few days blood sugar was persistently low in the 30s despite forcing patient to eat and given patient oral glucose supplementation. When security trainer arrived , patient 's blood glucose was 37. Patient received bolus of D10 . Blood glucose in emergency room 137 on arrival. No reported fever and chills. No chest pain or shortness of breath. Upon evaluation vital signs were stable. Pulse oximetry was stable on room air. Rapid COVID-19 in emergency department was positive. Urinalysis revealed +2 protein, +2 glucose, no evidence of urinary tract infection. No leukocytosis ,hemoglobin 9.7 ,hematocrit 29.2. Sodium 131, chloride 96. Glucose 115. Lactic acid 2.4. Elevated troponin- 0.203 . ECG showed inferolateral ischemia. D-dimer 0.72. Chest x-ray demonstrated bilateral patchy ill-defined peripheral appearing opacity. Patient received IV fluids, empiric antibiotic, steroid and admitted for further management. CONSULTANTS: teletypewriter operator Dr. Adler pulmonary Dr. Groves catering associate ID specialist Dr. Josh Elder GI specialist Dr. Cooper rug frame mounter Dr. López psychiatrist Dr. Gooden etcher photoengraving [facility] COURSE: Patient initially started on empiric antibiotics. Patient admitted to medical surgical floor to isolation room. Supplemental oxygen provided and titrated to pulse oximetry above 92%. Pulse oximetry remained stable on room air. No need for steroids and Remdesivir , given no hypoxia, no respiratory symptoms. Patient remained afebrile , without leukocytosis. Antibiotics stopped. DVT prophylaxis provided. Supportive care provided. Pulley Man followed. Second troponin still elevated 0.145 . ECG showed inferolateral ischemia. Patient denied chest pain. Patient was on antiplatelet therapy with aspirin, beta thompson and statin. Echocardiogram revealed preserved ejection fraction. Patient was not a candidate for a stress test as he was very noncompliant. Pulley Man recommended conservative management. Blood sugar was managed as per catering associate recommendation . Patient was on Januvia and Starlix. Sliding scale of insulin was on board as needed. Diabetic diet provided. Hypoglycemia protocol was in place. Renal parameters and electrolytes were closely monitored. Electrolytes corrected as needed , and nephrotoxic's were avoided. Prior to discharge all electrolyte stable. Patient demonstrated poor oral intake. Patient declined swallow evaluation. Calorie count implemented. Patient was consistently refusing labs and care . Patient started on Marinol , his oral intake improved. Protein supplements provided as per registered dietitian recommendation. Hemoglobin and hematocrit were closely monitored with goal to keep hemoglobin above 7. Anemia work-up revealed evidence of anemia of chronic disease. Hemoglobin 9.9 hematocrit 30.1 prior to discharge. Psychiatrist followed Psychiatric medication regimen was optimized . Per psychiatrist patient lacked capacity to refuse procedure and labs. Placement was found and secured at the correction facility . Patient was stable for transfer. FINAL DIAGNOSES: COVID-19 pneumonia NSTEMI Diabetes mellitus with initial hypoglycemia Hypertension Recent CVA Anemia of chronic disease Hyperlipidemia Electrolyte imbalance Failure to thrive Vascular dementia DISCHARGE MEDICATIONS: List of medication was sent to accepting facility. DISCHARGE INSTRUCTIONS: Patient was discharged to the correction facility. Follow up with medical doctor at the facility. I have been assigned to dictate discharge summary for this account. I was not involved in the patient's management. Claudia Hallman NP Dec 03, 2019 14:39
== END 2019-12-01 20:15 | DRG 137 ==
LOC: EDBD 17:02 → EMR 17:15 → 2E 17:55 → EDBEDREQ 18:41 → 4E 11-26 04:43
DX: U07.1 COVID-19 (principal); I21.4 Non-ST elevation (NSTEMI) myocardial infarction; J12.89 Other viral pneumonia; N39.0 Urinary tract infection, site not specified; E11.649 Type 2 diabetes mellitus with hypoglycemia without coma; Z86.73 Personal history of transient ischemic attack (TIA), and cerebral infarction without residual deficits; I10 Essential (primary) hypertension; E87.1 Hypo-osmolality and hyponatremia; F01.50 Vascular dementia, unspecified severity, without behavioral disturbance, psychotic disturbance, mood disturbance, and anxiety; R79.1 Abnormal coagulation profile; D63.8 Anemia in other chronic diseases classified elsewhere; Z91.19 Patient's noncompliance with other medical treatment and regimen; E78.5 Hyperlipidemia, unspecified; Z79.01 Long term (current) use of anticoagulants; Z79.84 Long term (current) use of oral hypoglycemic drugs; Z79.02 Long term (current) use of antithrombotics/antiplatelets; R62.7 Adult failure to thrive
CPT/HCPCS: 36415; 71045; 80053; 81003; 82248; 82270; 82550; 82553; 82607; 82728; 82746; 82947; 82962; 83036; 83540; 83550; 83605; 83735; 83880; 84100; 84484; 84550; 85007; 85025; 85379; 85610; 85730; 86140; 87040; 93005; 93306; 96361; 96365; 96367; 99285; J1815; J7030; U0002